=== PATIENT | female | born 1940 | race Caucasian/White ===

== ENCOUNTER 2019-03-05 11:00 | Outpatient (RCR) | payer SELFPAY | END 2019-04-04 00:01 | LOC: CR 11:00 | PROVIDERS: Family Provider Family Medicine; Referring Provider Nurse Practitioner; Visit Provider Family Medicine | DX: I50.21 Acute systolic (congestive) heart failure (principal) ==

== ENCOUNTER 2019-09-04 13:02 | Outpatient (RCR) | payer SELFPAY | END 2019-10-03 23:59 | disposition home or self-care (01) | LOC: CR 13:02 | PROVIDERS: Family Provider Family Medicine; PCP Family Medicine; Visit Provider Internal Medicine Cardiovascular Disease | DX: I50.21 Acute systolic (congestive) heart failure (principal); Z95.0 Presence of cardiac pacemaker ==

== ENCOUNTER 2019-10-17 11:41 | Outpatient (RCR) | payer SELFPAY | END 2019-11-03 23:59 | disposition home or self-care (01) | LOC: CR 11:41 | PROVIDERS: Family Provider Family Medicine; PCP Family Medicine; Visit Provider Internal Medicine Cardiovascular Disease | DX: I50.9 Heart failure, unspecified (principal); Z95.0 Presence of cardiac pacemaker ==

== ENCOUNTER 2019-12-05 14:16 | Outpatient (RCR) | payer SELFPAY | END 2020-01-03 23:59 | disposition home or self-care (01) | LOC: CR 14:16 | PROVIDERS: Family Provider Family Medicine; PCP Family Medicine; Visit Provider Internal Medicine Cardiovascular Disease | DX: I50.21 Acute systolic (congestive) heart failure (principal); Z95.0 Presence of cardiac pacemaker ==

== ENCOUNTER 2020-02-06 13:05 | Outpatient (RCR) | payer SELFPAY | END 2020-03-04 23:59 | disposition home or self-care (01) | LOC: CR 13:05 | PROVIDERS: Family Provider Family Medicine; PCP Family Medicine; Visit Provider Internal Medicine Cardiovascular Disease | DX: I50.21 Acute systolic (congestive) heart failure (principal) ==

== ENCOUNTER 2020-07-16 09:12 | Outpatient (RCR) | payer MEDICARE, OTHER, SELFPAY | END 2020-08-02 23:59 | disposition home or self-care (01) | LOC: SPT 09:12 | PROVIDERS: Family Provider Family Medicine; PCP Family Medicine; Referring Provider Family Medicine; Visit Provider Family Medicine | DX: M25.562 Pain in left knee (principal) | CPT/HCPCS: 97110; 97161 ==

== ENCOUNTER 2020-08-03 06:00 | Outpatient (RCR) | payer MEDICARE, OTHER, SELFPAY | END 2020-09-02 23:59 | disposition home or self-care (01) | LOC: SPT 06:00 | PROVIDERS: Family Provider Family Medicine; PCP Registered Nurse; Referring Provider Family Medicine; Visit Provider Family Medicine | DX: M79.671 Pain in right foot (principal); M79.672 Pain in left foot | CPT/HCPCS: 97110; L3030 ==

== ENCOUNTER 2020-11-08 06:00 | Outpatient (RCR) | payer MEDICARE, OTHER, SELFPAY | END 2020-12-03 23:59 | disposition home or self-care (01) | LOC: SPT 06:00 | PROVIDERS: PCP Registered Nurse; Referring Provider Orthopaedic Surgery; Visit Provider Orthopaedic Surgery | DX: Z47.1 Aftercare following joint replacement surgery (principal); Z96.652 Presence of left artificial knee joint | CPT/HCPCS: 97110; 97161 ==

== ENCOUNTER 2020-12-04 06:00 | Outpatient (RCR) | payer MEDICARE, OTHER, SELFPAY | END 2021-01-02 23:59 | disposition home or self-care (01) | LOC: SPT 06:00 | PROVIDERS: PCP Registered Nurse; Referring Provider Orthopaedic Surgery; Visit Provider Orthopaedic Surgery | DX: Z47.1 Aftercare following joint replacement surgery (principal); Z96.652 Presence of left artificial knee joint | CPT/HCPCS: 97110; 97150 ==

== ENCOUNTER → 2020-12-25 14:57 | Outpatient (BNVA) | payer MEDICARE, OTHER, SELFPAY | PROVIDERS: PCP Family Medicine; Visit Provider Nurse Practitioner Family | DX: I50.22 Chronic systolic (congestive) heart failure (principal); I42.0 Dilated cardiomyopathy | CPT/HCPCS: 80048; 83880; 85025 ==

== ENCOUNTER → 2020-12-27 10:20 | Outpatient (BNVA) | payer MEDICARE, OTHER, SELFPAY | PROVIDERS: PCP Family Medicine; Visit Provider Internal Medicine Cardiovascular Disease | DX: I50.22 Chronic systolic (congestive) heart failure (principal) | CPT/HCPCS: 85025 ==

== ENCOUNTER → 2021-01-13 10:09 | Outpatient (BNVA) | payer MEDICARE, OTHER, SELFPAY | PROVIDERS: PCP Family Medicine; Visit Provider Internal Medicine Cardiovascular Disease | DX: I50.22 Chronic systolic (congestive) heart failure (principal); I42.0 Dilated cardiomyopathy | CPT/HCPCS: 80048 ==

== ENCOUNTER 2021-06-25 06:00 | Outpatient (RCR) | payer MEDICARE, OTHER, SELFPAY | END 2021-07-03 23:59 | disposition home or self-care (01) | LOC: SPT 06:00 | PROVIDERS: PCP Family Medicine; Referring Provider Family Medicine; Visit Provider Family Medicine | DX: M54.9 Dorsalgia, unspecified (principal) | CPT/HCPCS: 97110; 97161 ==

== ENCOUNTER 2021-07-04 06:00 | Outpatient (RCR) | payer MEDICARE, OTHER, SELFPAY | END 2021-08-02 23:59 | disposition home or self-care (01) | LOC: SPT 06:00 | PROVIDERS: PCP Family Medicine; Referring Provider Family Medicine; Visit Provider Family Medicine | DX: M54.9 Dorsalgia, unspecified (principal) | CPT/HCPCS: 97110 ==

== ENCOUNTER → 2021-08-18 14:53 | Outpatient (BNVA) | payer MEDICARE, OTHER, SELFPAY | PROVIDERS: PCP Registered Nurse; Visit Provider Internal Medicine | DX: I11.0 Hypertensive heart disease with heart failure (principal); I50.22 Chronic systolic (congestive) heart failure; I42.0 Dilated cardiomyopathy; Z95.0 Presence of cardiac pacemaker; Z87.891 Personal history of nicotine dependence | CPT/HCPCS: 99214 ==

== ENCOUNTER 2021-12-09 13:33 | Outpatient (RCR) | payer SELFPAY | END 2022-01-02 23:59 | disposition home or self-care (01) | LOC: SPT 13:33 | PROVIDERS: PCP Registered Nurse; Referring Provider Family Medicine; Visit Provider Family Medicine | DX: I50.9 Heart failure, unspecified (principal) ==

== ENCOUNTER 2022-01-05 10:12 | Outpatient (RCR) | payer SELFPAY | END 2022-02-02 23:59 | disposition home or self-care (01) | LOC: CR 10:12 | PROVIDERS: PCP Family Medicine; Referring Provider Internal Medicine; Visit Provider Internal Medicine | DX: I50.9 Heart failure, unspecified (principal) ==

== ENCOUNTER 2022-07-06 13:35 | Outpatient (RCR) | payer SELFPAY | END 2022-08-02 23:59 | disposition home or self-care (01) | LOC: CR 13:35 | PROVIDERS: PCP Family Medicine; Referring Provider Internal Medicine; Visit Provider Internal Medicine | DX: I50.21 Acute systolic (congestive) heart failure (principal) ==

== ENCOUNTER 2022-08-03 15:41 | Outpatient (RCR) | payer SELFPAY | END 2022-09-02 23:59 | disposition home or self-care (01) | LOC: CR 15:41 | PROVIDERS: PCP Family Medicine; Referring Provider Internal Medicine; Visit Provider Internal Medicine | DX: I50.21 Acute systolic (congestive) heart failure (principal) ==

== ENCOUNTER → 2022-09-01 10:47 | Outpatient (BNVA) | payer MEDICARE, OTHER, SELFPAY | PROVIDERS: PCP Family Medicine; Visit Provider Internal Medicine Cardiovascular Disease | DX: I11.0 Hypertensive heart disease with heart failure (principal); I50.22 Chronic systolic (congestive) heart failure; I42.0 Dilated cardiomyopathy; Z95.0 Presence of cardiac pacemaker | CPT/HCPCS: 99214 ==

== ENCOUNTER 2022-10-23 11:30 | Outpatient (CLI) | payer MEDICARE, OTHER, SELFPAY ==
--- NOTE | 2022-10-23 11:53 | FL_ITS ---
WS: [id number] Exam: FL barium swallow modifd [id number] Date/Time of Exam: 10/23/2022 12:08 PM Reason For Exam: Other dysphagia Fluoroscopy time: 3min [id number] minutes # of spot films: 1 Modified barium swallow was performed in conjunction with the speech therapy service. The patient tolerated all consistencies of barium mixture foodstuffs without aspiration or penetratio n. Swallowing function at the level of oropharynx was normal. The patient ingested a barium tablet wi thout difficulty or complication. 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 FL/FL barium swallow modifd [id number] IMPRESSION: 1. Unremarkable modified barium swallow. No penetration or aspiration. 2. Moderate spasm noted involving the mid and lower esophagus.
== END 2022-10-23 11:31 | disposition home or self-care (01) ==
PROVIDERS: PCP Family Medicine; Visit Provider Family Medicine
DX: R13.10 Dysphagia, unspecified (principal)
CPT/HCPCS: 74230; 92611

== ENCOUNTER → 2022-10-26 14:13 | Outpatient (BNVA) | payer MEDICARE, OTHER, SELFPAY | PROVIDERS: PCP Family Medicine; Visit Provider Podiatrist Foot & Ankle Surgery | DX: M19.071 Primary osteoarthritis, right ankle and foot (principal); L60.3 Nail dystrophy | CPT/HCPCS: 11750; 99203 ==

== ENCOUNTER → 2022-11-12 08:42 | Outpatient (BNVA) | payer MEDICARE, OTHER, SELFPAY | PROVIDERS: PCP Family Medicine; Visit Provider Podiatrist Foot & Ankle Surgery | DX: L60.3 Nail dystrophy (principal); M19.071 Primary osteoarthritis, right ankle and foot | CPT/HCPCS: 99213 ==

== ENCOUNTER 2023-02-23 13:20 | Outpatient (RCR) | payer MEDICARE, OTHER, SELFPAY | END 2023-03-04 23:59 | disposition home or self-care (01) | LOC: SPT 13:20 | PROVIDERS: PCP Family Medicine; Visit Provider Family Medicine | DX: M54.2 Cervicalgia (principal) | CPT/HCPCS: 97110; 97161 ==

== ENCOUNTER 2023-07-01 08:59 | Outpatient (CLI) | payer MEDICARE, OTHER, SELFPAY ==
--- NOTE | 2023-07-01 09:05 | USCV_ITS ---
Axel Alphonso Age: 83 Gender: F : 1940 Exam Date: 07/01/2023 09:32 Ordering Phys: Joy Espinoza MD ([email or web address]) Technologist: YADIEL Exam Location: [facility] [place] Indication: DIALTED CARDIOMYOPATHY BP: 127 / 71 HR: 68 Rhythm: Sinus Technical Quality: Adequate MEASUREMENTS (Male / Female) Normal Values 2D ECHO LV Diastolic Diameter PLAX 4.5 cm 4.2 - 5.9 / 3.9 - 5.3 cm IVS Diastolic Thickness 1.0 cm 0.6 - 1.0 / 0.6 - 0.9 cm IVS Systolic Thickness 1.5 cm LVPW Diastolic Thickness 2.1 cm 0.6 - 1.0 / 0.6 - 0.9 cm LVPW Systolic Thickness 2.2 cm LVOT Diameter 2.0 cm LV Ejection Fraction 2D Teich 39.9 % LV Ejection Fraction MOD 2C 48.4 % LV Ejection Fraction 2C AL 53.0 % LA Diameter 3.4 cm RA Systolic Volume 4C AL 20.5 ml RA Systolic Volume 4C MOD 20.2 ml Aorta at Sinotubular Diameter 2.5 cm IVC Diameter 1.6 cm M-MODE LA Ao Ratio MM 0.7 AV Cusp Separation MM 1.5 cm DOPPLER AV Peak Velocity 104.0 cm/s LVOT Peak Velocity 71.0 cm/s AV Area Cont Eq vti 2.1 cm squared AV Area Cont Eq pk 2.1 cm squared MV Peak Velocity 83.0 cm/s MV Area PHT 3.3 cm squared Mitral E to A Ratio 0.9 TV Peak Velocity 227.0 cm/s TR Peak Velocity 250.5 cm/s TR Peak Gradient 25.1 mmHg TR Mean Velocity 192.0 cm/s TR Mean Gradient 16.6 mmHg TR Velocity Time Integral 83.2 cm TV Peak E Velocity 49.0 cm/s Right Atrial Pressure 3.0 mmHg Pulmonary Artery Systolic Pressu 28.1 mmHg PV Peak Velocity 97.0 cm/s RV Ejection Time 0.4 s FINDINGS Left Ventricle Left ventricle is normal in size. LV systolic function is mildly reduced with EF of 45 to 50%. Mild global hypokinesis. Right Ventricle Mildly hypokinetic. Pacemaker lead is seen. Right Atrium Normal in size Left Atrium Normal in size Mitral Valve Structurally normal mitral valve. Mild mitral regurgitation. Aortic Valve Structurally noraml aortic valve. No significant stenosis or regurgitation. Tricuspid Valve Mild tricuspid regurgitation. Pulmonary artery systolic pressure is normal Pulmonic Valve Not well visualized Pericardium Normal Aorta Normal in size IVC Appears to be normal CONCLUSIONS LV systolic function is mildly reduced with EF of 45-50%. Mild global hypokinesis Mildly hypokinetic right ventricle Mild mitral regurgitation Mild tricuspid regurgitation Compared to prior echocardiogram from 2017, no significant changes seen. Tawanda Campbell MD (Electronically Signed) Final Date: 05 July 2023 11:15 S
== END 2023-07-01 09:00 | disposition home or self-care (01) ==
LOC: RAD 09:00
PROVIDERS: PCP Family Medicine; Visit Provider Internal Medicine Cardiovascular Disease
DX: I42.0 Dilated cardiomyopathy (principal); I08.1 Rheumatic disorders of both mitral and tricuspid valves
CPT/HCPCS: 93306

== ENCOUNTER → 2023-07-26 09:59 | Outpatient (BNVA) | payer MEDICARE, OTHER, SELFPAY | PROVIDERS: PCP Family Medicine; Visit Provider Podiatrist Foot & Ankle Surgery | DX: M79.672 Pain in left foot (principal); M76.822 Posterior tibial tendinitis, left leg; Z46.89 Encounter for fitting and adjustment of other specified devices | CPT/HCPCS: 73630; 97760; 99213; L4361 ==

== ENCOUNTER 2023-07-26 11:00 | Outpatient (CLI) | payer MEDICARE, OTHER, SELFPAY | END 2023-07-26 11:01 | disposition home or self-care (01) | LOC: SPT 11:01 | PROVIDERS: PCP Family Medicine; Visit Provider Podiatrist Foot & Ankle Surgery | DX: Z46.89 Encounter for fitting and adjustment of other specified devices (principal); M76.822 Posterior tibial tendinitis, left leg | CPT/HCPCS: 97760; 99213; L4361 ==

== ENCOUNTER → 2023-08-11 07:05 | Outpatient (BNVA) | payer MEDICARE, OTHER, SELFPAY | PROVIDERS: PCP Registered Nurse; Visit Provider Podiatrist Foot & Ankle Surgery | DX: M76.822 Posterior tibial tendinitis, left leg (principal) | CPT/HCPCS: 99213 ==

== ENCOUNTER → 2023-12-09 10:45 | Outpatient (BNVA) | payer MEDICARE, OTHER, SELFPAY | PROVIDERS: PCP Family Medicine; Visit Provider Physician Assistant | DX: M25.569 Pain in unspecified knee (principal); M17.11 Unilateral primary osteoarthritis, right knee | CPT/HCPCS: 73560; 73565; 99213 ==

== ENCOUNTER → 2024-01-26 12:41 | Outpatient (BNVA) | payer MEDICARE, OTHER, SELFPAY | PROVIDERS: PCP Family Medicine; Visit Provider Internal Medicine Cardiovascular Disease | DX: I42.0 Dilated cardiomyopathy (principal); I50.22 Chronic systolic (congestive) heart failure; Z95.0 Presence of cardiac pacemaker | CPT/HCPCS: 99213 ==

== ENCOUNTER → 2024-03-09 09:06 | Outpatient (BNVA) | payer MEDICARE, OTHER, SELFPAY | PROVIDERS: PCP Family Medicine; Visit Provider Physician Assistant | DX: M17.11 Unilateral primary osteoarthritis, right knee (principal) | CPT/HCPCS: 99213 ==

== ENCOUNTER → 2024-06-13 10:55 | Outpatient (BNVA) | payer MEDICARE, OTHER, SELFPAY | PROVIDERS: PCP Family Medicine; Referring Provider Family Medicine; Visit Provider Specialist | DX: G30.9 Alzheimer's disease, unspecified (principal); F02.80 Dementia in other diseases classified elsewhere, unspecified severity, without behavioral disturbance, psychotic disturbance, mood disturbance, and anxiety | CPT/HCPCS: 99204 ==

== ENCOUNTER → 2024-06-23 10:26 | Outpatient (BNVA) | payer MEDICARE, OTHER, SELFPAY | PROVIDERS: PCP Family Medicine; Visit Provider Physician Assistant | DX: M17.11 Unilateral primary osteoarthritis, right knee (principal) | CPT/HCPCS: 20610; 73560; 73565; 99213; J3301; J9999 ==

== ENCOUNTER → 2024-08-23 12:05 | Outpatient (BNVA) | payer MEDICARE, OTHER, SELFPAY | PROVIDERS: PCP Family Medicine; Visit Provider Internal Medicine Cardiovascular Disease | DX: I42.0 Dilated cardiomyopathy (principal); I50.22 Chronic systolic (congestive) heart failure; M17.11 Unilateral primary osteoarthritis, right knee; E78.49 Other hyperlipidemia | CPT/HCPCS: 99214 ==

== ENCOUNTER → 2024-08-29 09:17 | Outpatient (BNVA) | payer MEDICARE, OTHER, SELFPAY | PROVIDERS: PCP Family Medicine; Visit Provider Physician Assistant | DX: M17.11 Unilateral primary osteoarthritis, right knee (principal) | CPT/HCPCS: 99214 ==

== ENCOUNTER 2024-09-05 15:23 | Inpatient (IN) | payer MEDICARE, OTHER, SELFPAY ==
[2024-09-05] VITALS (29 sets, daily range): BP systolic 92–114; BP diastolic 44–63; PULSE 73–105; RESP 14–25; TEMP 36.8–37; O2SAT 84–96; BMI 37.2; BMI 28.5; BMI 28.7
--- NOTE | 2024-09-05 15:27 | W.ED.GENADLT ---
Documented by User: Moises Chavez DO 09/06/24 08:54 HPI - General Adult General: Chief complaint: Altered Mental Status Stated complaint: weakness, AMS Time Seen by Provider: 09/05/24 15:24 History of Present Illness: 84-year-old female presents emergency room complaining of generalized weakness. Patient lives at home with her he had called EMS because she had fallen and he could not get her back up she seemed to have difficulty breathing show normally on oxygen on arrival here she was on 3 L still satting low 80s a productive 5 she satting 86 to 87% she denies chest pain or abdominal pain. She does admit to being short of breath and having a slight cough. states she has a history of COPD has a history of cardiomyopathy as well has an ICD in place. Verbal report from the was that her last ejection fraction was 40%, last echocardiogram on the chart from June 2023 was 45 to 50%. She does not have any history of coronary artery disease no previous stents.. No recent medication changes. Associated symptoms: Reports dyspnea and malaise; Deny chest pain or rash Related Data Home Medications ?Medication ?Instructions ?Recorded ?Confirmed ascorbic acid (vitamin C) 1,000 mg 500 mg PO DAILY 08/16/19 08/29/24 tablet hydrocodone 10 mg-acetaminophen 1 tab PO Q8H PRN 08/16/19 08/29/24 325 mg tablet magnesium 250 mg tablet 250 mg PO DAILY 08/16/19 08/29/24 acetaminophen 500 mg tablet 1,000 mg PO Q6H PRN Pain 08/05/21 08/29/24 (Tylenol Extra Strength) nitroglycerin 0.4 mg sublingual 0.4 mg sublingual Q5M PRN 08/18/21 08/29/24 tablet methadone 5 mg tablet 5 mg PO DAILY 08/23/24 08/29/24 Previous Rx's ?Medication ?Instructions ?Recorded silver sulfadiazine 1 % topical 1 applic topical BID 2 weeks #50 10/26/22 cream grams CAM walker #1 ea 07/26/23 diclofenac sodium 1 % topical gel 4 g topical QID #100 grams 12/09/23 (Voltaren Arthritis Pain) allopurinol 300 mg tablet 300 mg PO DAILY #90 tabs 02/15/24 carvedilol 12.5 mg tablet 12.5 mg PO BID #180 tabs 02/15/24 furosemide 40 mg tablet 40 mg PO BID #160 tabs 02/15/24 montelukast 10 mg tablet See Rx Instructions .Route 02/15/24 .COMPLEX #90 tabs potassium chloride 20 mEq See Rx Instructions .Route 02/15/24 tablet,extended release(part/cryst) .COMPLEX #90 tabs rosuvastatin 40 mg tablet (Crestor) 40 mg PO DAILY 90 days #90 tabs 02/15/24 venlafaxine 150 mg 150 mg PO DAILY #90 caps 02/15/24 capsule,extended release 24 hr (Effexor XR) fluticasone 500 mcg-salmeterol 50 See Rx Instructions .Route 02/28/24 mcg/dose blistr powdr for .COMPLEX #180 blisters inhalation (Advair Diskus) albuterol sulfate 90 mcg/actuation 1 inh inhalation QID #6.7 grams 07/17/24 aerosol inhaler (Ventolin HFA) estradiol-norethindrone acet 1 1 tab PO DAILY 90 days #90 tabs 08/17/24 mg-0.5 mg tablet pregabalin 300 mg capsule (Lyrica) 300 mg PO BID 30 days #60 caps 08/17/24 Allergies Allergy/AdvReac Type Severity Reaction Status Date / Time No Known Allergies Allergy Verified 08/23/24 13:00 Review of Systems Const: Reports: fatigue and malaise; Denies: fever(s) or chills Card: Denies: chest pain Resp: Reports: dyspnea GI: Denies: abdominal pain : Denies: dysuria, urinary frequency or urinary urgency Musc: Denies: neck pain or back pain Skin/Breast: Denies: rash PFSH ED PFSH: Medical History COPD (chronic obstructive pulmonary disease) Hormone replacement therapy Depression Hyperlipidemia Cardiomyopathy CHF (congestive heart failure) Social History Smoking and tobacco/nicotine status: former use of tobacco/nicotine Alcohol intake: current Alcohol intake frequency: 0-2 Drinks per Day Alcohol type: beer Substance/Drug Use: never Adopted: No Caregiver/support person: No Lives independently: No Household members: spouse Marital status: service: No Sexually active: Yes Do you think of yourself as: Straight/Heterosexual Current gender identity: Female Physical Exam Const: GENERAL APPEARANCE: cooperative ORIENTATION/CONSCIOUSNESS: Yes awake HENMT: COMMON NORMALS: normocephalic, atraumatic and hearing grossly normal bilaterally HEAD & SCALP: normocephalic and atraumatic Resp: COMMON NORMALS: normal respiratory effort, No retractions, No use of accessory muscles and clear to auscultation bilaterally AUSCULTATION: clear to auscultation bilaterally Cardio: COMMON NORMALS: regular rate, regular rhythm and No murmurs present (Cardio) RATE: regular rate RHYTHM: regular rhythm GI: COMMON NORMALS: Soft to palpation and No hepatosplenomegaly present AUSCULTATION: Yes normoactive bowel sounds PALPATION: Yes Soft to palpation, No Tenderness to palpation present (GI), No Guarding due to palpation present (GI) and Yes No hepatosplenomegaly present Extremity: COMMON NORMALS: normal to inspection, capillary refill normal, no clubbing, cyanosis or edema, no calf tenderness and no pedal edema Skin: COMMON NORMALS: no rashes or lesions noted GENERAL SKIN EXAM: no rashes or lesions noted Course Vital Signs: Vital signs: Vital Signs Temperature 98.1 F 09/06/24 07:41 Pulse Rate 83 09/06/24 07:41 Respiratory Rate 25 H 09/06/24 07:41 Blood Pressure 113/55 09/06/24 07:41 Pulse Oximetry 92 09/06/24 07:41 Oxygen Delivery Me thod Nasal Cannula 09/06/24 07:41 Oxygen Flow Rate 6 09/05/24 15:54 MDM - General Adult Medical Decision Making Care signed out to Dr. Harrell at change of shift. See final notes for diagnosis and disposition. Patient signed out to me by previous emergency physician pending labs. Ejection fraction from June 2023 is 45 to 50%. Last kidney function test was in 2020. But since that time, creatinine has more than doubled. She sounds somewhat crackly in the lungs at this she will be given judicious IV fluids to correct JULIET with careful consideration not to fluid overload. She is also mildly hypoxic and initially treating physician had ordered PE study of the lungs however the the hospitalist and I agreed to keep this in mind but forego CT of the chest at this time. Patient has been weak and confused and hallucinating according to her and I suspect this is due to metabolic encephalopathy. She will be admitted in guarded but relatively stable condition. Lab Data 09/06/24 01:05 09/06/24 01:05 Radiology Impressions Chest X-Ray 09/05/24 16:23 IMPRESSION: No acute findings. Laboratory Results WBC 21.43 10^3/uL (3.29-11.43) H 09/05/24 16:03 RBC 5.30 10^6/uL (3.85-5.65) 09/05/24 16:03 Hgb 16.50 g/dL (11.27-16.99) 09/05/24 16:03 Hct 51.8 % (36-47) H 09/05/24 16:03 MCV 97.7 fl (85-98) 09/05/24 16:03 MCH 31.1 pg (27-33) 09/05/24 16:03 MCHC 31.9 g/dL (30-55) 09/05/24 16:03 RDW 14.5 % (12.1-15.1) 09/05/24 16:03 Plt Count 155 10^3/cmm (157-399) L 09/05/24 16:03 MPV 11.9 fL (7.4-10.4) H 09/05/24 16:03 Neut % (Auto) 90.5 % 09/05/24 16:03 Lymph % (Auto) 2.6 % 09/05/24 16:03 Sherman % (Auto) 6.3 % 09/05/24 16:03 Eos % (Auto) 0.0 % 09/05/24 16:03 Baso % (Auto) 0.2 % 09/05/24 16:03 Neut # (Auto) 19.40 10^3/uL (1.8-7.7) H 09/05/24 16:03 Lymph # (Auto) 0.6 10^3/uL (0.8-4.8) L 09/05/24 16:03 Sherman # (Auto) 1.3 10^3/uL (0.2-0.9) H 09/05/24 16:03 Eos # (Auto) 0.0 10^3/uL (0.0-0.8) 09/05/24 16:03 Baso # (Auto) 0.1 10^3/uL (0.0-0.1) 09/05/24 16:03 Nucleated RBC % (auto) 0 % 09/05/24 16:03 Nucleated RBCs # 0.0 /100WBC 09/05/24 16:03 Specimen Type Arterial 09/05/24 15:30 Sample Site Brachial, left 09/05/24 15:30 ABG pH 7.44 (7.35-7.45) 09/05/24 15:30 ABG pCO2 39.5 mmHg (35-45) 09/05/24 15:30 ABG pO2 60.6 mmHg (80.0-100.0) L 09/05/24 15:30 ABG HCO3 26.6 mmol/L (22-26) H 09/05/24 15:30 ABG O2 Saturation 91.6 09/05/24 15:30 ABG Base Excess 2.3 mmol/L (-2.0-2.0) H 09/05/24 15:30 Zafar Test Pos 09/05/24 15:30 A-a O2 Gradient 5.1 mmHg (5-10) 09/05/24 15:30 Hematocrit 51.5 % (37-47) H 09/05/24 15:30 Hgb O2 Saturation 90.2 % (95-100) L 09/05/24 15:30 Carboxyhemoglobin 1.0 %THgb (0.4-20.1) 09/05/24 15:30 Methemoglobin 0.6 % (0.4-1.5) 09/05/24 15:30 Total Hemoglobin 16.8 g/dL (12-16) H 09/05/24 15:30 Sodium 139.0 mmol/L (131-143) 09/05/24 15:30 Potassium 3.1 mmol/L (3.5-5.0) L 09/05/24 15:30 Glucose 130.0 mg/dL (70-115) H 09/05/24 15:30 Ionized Calcium 1.1 mmol/L (1.1-1.4) 09/05/24 15:30 O2 Delivery Device Nc 09/05/24 15:30 O2 Liters/Min 5.0 % 09/05/24 15:30 Programming Engineer ID Cak 09/05/24 15:30 Sodium 136 mmol/L (136-145) 09/05/24 16:03 Potassium 3.4 mmol/L (3.5-5.1) L 09/05/24 16:03 Chloride 98 mmol/L (98-107) 09/05/24 16:03 Carbon Dioxide 22 mmol/L (22-29) 09/05/24 16:03 Anion Gap 19.4 (5-19) H 09/05/24 16:03 BUN 25 mg/dL (8-23) H 09/05/24 16:03 Creatinine 1.9 mg/dL (0.5-0.9) H 09/05/24 16:03 GFR Calculation Not Reportable 09/05/24 16:03 Glucose 105 mg/dL (65-115) 09/05/24 16:03 Calculated Osmolality 287 mOsm/kg (285-295) 09/05/24 16:03 Lactic Acid 1.6 mmol/L (0.5-2.2) 09/05/24 17:15 Calcium 8.7 mg/dL (8.5-10.5) 09/05/24 16:03 Total Bilirubin 0.7 mg/dL (0.15-1.2) 09/05/24 16:03 AST 20 U/L (0-32) 09/05/24 16:03 ALT 7 U/L (0-33) 09/05/24 16:03 Alkaline Phosphatase 59 U/L (35-105) 09/05/24 16:03 Creatine Kinase 87 U/L (26-192) 09/05/24 16:03 Troponin T Baseline 35 ng/L (0-10) H 09/05/24 16:03 Troponin T 120 Minute 33.93 ng/L (0-10) H 09/05/24 18:18 Delta Troponin T -1.07 ABS# (0-10) L 09/05/24 18:18 Total Protein 6.3 g/dL (6.6-8.7) L 09/05/24 16:03 Albumin 3.7 g/dL (3.5-5.2) 09/05/24 16:03 Globulin 2.6 g/dL (1.3-4.6) 09/05/24 16:03 Lipase 11 U/L (13-60) L 09/05/24 16:03 Urine Color Yellow (Yellow) 09/05/24 17:31 Urine Appearance Clear (CLEAR) 09/05/24 17:31 Urine pH 7.5 (5-7) 09/05/24 17:31 Ur Specific [place] 1.009 (1.005-1.030) 09/05/24 17:31 Urine Protein 2+ (Negative) A 09/05/24 17:31 Urine Glucose (UA) Negative (Normal) 09/05/24 17:31 Urine Ketones Negative (Negative) 09/05/24 17:31 Urine Blood 1+ (Negative) A 09/05/24 17:31 Urine Nitrate Negative (Negative) 09/05/24 17:31 Urine Bilirubin Negative (Negative) 09/05/24 17:31 Urine Urobilinogen 1.0 mg/dL (Negative) 09/05/24 17:31 Ur Leukocyte Esterase Negative (Negative) 09/05/24 17:31 Urine RBC 0-2 /hpf (0-2) 09/05/24 17:31 Urine WBC 0-5 /hpf (0-5) 09/05/24 17:31 Ur Squamous Epith Cells 0-5 /hpf (0-5) 09/05/24 17:31 Amorphous Sediment Not Reportable 09/05/24 17:31 Urine Bacteria None seen /hpf (NONE) 09/05/24 17:31 Hyaline Casts 14.06 /lpf 09/05/24 17:31 EKG Data EKG 1: Interpretation: September 05, 2024 1619 EKG shows a paced rhythm with a rate of 86 no further interpretation available Computer generated interpretation: Chest X-Ray 09/05/24 16:23 IMPRESSION: No acute findings. EKG 2: Computer generated interpretation: Chest X-Ray 09/05/24 16:23 IMPRESSION: No acute findings. Discharge Plan Discharge Patient Disposition: Admitted As Inpatient Admit Provider: Radha Thomas Clinical Impression: Acute metabolic encephalopathy, JULIET (acute kidney injury), Hypoxia Condition: Stable Sign Out Sign Out Data: Patient Sign Out occurred on 09/05/24 at 19:28. Patient's care was discussed, and care was transferred from Moises Chavez DO to Steven Harrell MD. Coding Level of Care Code ED Drainman for Chg Fwd Documented by User: Steven Harrell MD 09/05/24 20:16 HPI - General Adult General: Chief complaint: Altered Mental Status Stated complaint: weakness, AMS Time Seen by Provider: 09/05/24 15:24 Related Data Home Medications ?Medication ?Instructions ?Recorded ?Confirmed ascorbic acid (vitamin C) 1,000 mg 500 mg PO DAILY 08/16/19 08/29/24 tablet hydrocodone 10 mg-acetaminophen 1 tab PO Q8H PRN 08/16/19 08/29/24 325 mg tablet magnesium 250 mg tablet 250 mg PO DAILY 08/16/19 08/29/24 acetaminophen 500 mg tablet 1,000 mg PO Q6H PRN Pain 08/05/21 08/29/24 (Tylenol Extra Strength) nitroglycerin 0.4 mg sublingual 0.4 mg sublingual Q5M PRN 08/18/21 08/29/24 tablet methadone 5 mg tablet 5 mg PO DAILY 08/23/24 08/29/24 Previous Rx's ?Medication ?Instructions ?Recorded silver sulfadiazine 1 % topical 1 applic topical BID 2 weeks #50 10/26/22 cream grams CAM walker #1 ea 07/26/23 diclofenac sodium 1 % topical gel 4 g topical QID #100 grams 12/09/23 (Voltaren Arthritis Pain) allopurinol 300 mg tablet 300 mg PO DAILY #90 tabs 02/15/24 carvedilol 12.5 mg tablet 12.5 mg PO BID #180 tabs 02/15/24 furosemide 40 mg tablet 40 mg PO BID #160 tabs 02/15/24 montelukast 10 mg tablet See Rx Instructions .Route 02/15/24 .COMPLEX #90 tabs potassium chloride 20 mEq See Rx Instructions .Route 02/15/24 tablet,extended release(part/cryst) .COMPLEX #90 tabs rosuvastatin 40 mg tablet (Crestor) 40 mg PO DAILY 90 days #90 tabs 02/15/24 venlafaxine 150 mg 150 mg PO DAILY #90 caps 02/15/24 capsule,extended release 24 hr (Effexor XR) fluticasone 500 mcg-salmeterol 50 See Rx Instructions .Route 02/28/24 mcg/dose blistr powdr for .COMPLEX #180 blisters inhalation (Advair Diskus) albuterol sulfate 90 mcg/actuation 1 inh inhalation QID #6.7 grams 07/17/24 aerosol inhaler (Ventolin HFA) estradiol-norethindrone acet 1 1 tab PO DAILY 90 days #90 tabs 08/17/24 mg-0.5 mg tablet pregabalin 300 mg capsule (Lyrica) 300 mg PO BID 30 days #60 caps 08/17/24 Allergies Allergy/AdvReac Type Severity Reaction Status Date / Time No Known Allergies Allergy Verified 08/23/24 13:00 [facility] ED PFSH: Medical History COPD (chronic obstructive pulmonary disease) Hormone replacement therapy Depression Hyperlipidemia Cardiomyopathy CHF (congestive heart failure) Social History Smoking and tobacco/nicotine status: former use of tobacco/nicotine Alcohol intake: current Alcohol intake frequency: 0-2 Drinks per Day Alcohol type: beer Substance/Drug Use: never Adopted: No Caregiver/support person: No Lives independently: No Household members: spouse Marital status: service: No Sexually active: Yes Do you think of yourself as: Straight/Heterosexual Current gender identity: Female Course Vital Signs: Vital signs: Vital Signs Temperature 98.1 F 09/06/24 07:41 Pulse Rate 83 09/06/24 07:41 Respiratory Rate 25 H 09/06/24 07:41 Blood Pressure 113/55 09/06/24 07:41 Pulse Oximetry 92 09/06/24 07:41 Oxygen Delivery Me thod Nasal Cannula 09/06/24 07:41 Oxygen Flow Rate 6 09/05/24 15:54 MDM - General Adult Medical Decision Making Patient signed out to me by previous emergency physician pending labs. Ejection fraction from June 2023 is 45 to 50%. Last kidney function test was in 2020. But since that time, creatinine has more than doubled. She sounds somewhat crackly in the lungs at this she will be given judicious IV fluids to correct JULIET with careful consideration not to fluid overload. She is also mildly hypoxic and initially treating physician had ordered PE study of the lungs however the the hospitalist and I agreed to keep this in mind but forego CT of the chest at this time. Patient has been weak and confused and hallucinating according to her and I suspect this is due to metabolic encephalopathy. She will be admitted in guarded but relatively stable condition. Lab Data 09/06/24 01:05 09/06/24 01:05 Radiology Impressions Chest X-Ray 09/05/24 16:23 IMPRESSION: No acute findings. Laboratory Results WBC 21.43 10^3/uL (3.29-11.43) H 09/05/24 16:03 RBC 5.30 10^6/uL (3.85-5.65) 09/05/24 16:03 Hgb 16.50 g/dL (11.27-16.99) 09/05/24 16:03 Hct 51.8 % (36-47) H 09/05/24 16:03 MCV 97.7 fl (85-98) 09/05/24 16:03 MCH 31.1 pg (27-33) 09/05/24 16:03 MCHC 31.9 g/dL (30-55) 09/05/24 16:03 RDW 14.5 % (12.1-15.1) 09/05/24 16:03 Plt Count 155 10^3/cmm (157-399) L 09/05/24 16:03 MPV 11.9 fL (7.4-10.4) H 09/05/24 16:03 Neut % (Auto) 90.5 % 09/05/24 16:03 Lymph % (Auto) 2.6 % 09/05/24 16:03 Sherman % (Auto) 6.3 % 09/05/24 16:03 Eos % (Auto) 0.0 % 09/05/24 16:03 Baso % (Auto) 0.2 % 09/05/24 16:03 Neut # (Auto) 19.40 10^3/uL (1.8-7.7) H 09/05/24 16:03 Lymph # (Auto) 0.6 10^3/uL (0.8-4.8) L 09/05/24 16:03 Sherman # (Auto) 1.3 10^3/uL (0.2-0.9) H 09/05/24 16:03 Eos # (Auto) 0.0 10^3/uL (0.0-0.8) 09/05/24 16:03 Baso # (Auto) 0.1 10^3/uL (0.0-0.1) 09/05/24 16:03 Nucleated RBC % (auto) 0 % 09/05/24 16:03 Nucleated RBCs # 0.0 /100WBC 09/05/24 16:03 Specimen Type Arterial 09/05/24 15:30 Sample Site Brachial, left 09/05/24 15:30 ABG pH 7.44 (7.35-7.45) 09/05/24 15:30 ABG pCO2 39.5 mmHg (35-45) 09/05/24 15:30 ABG pO2 60.6 mmHg (80.0-100.0) L 09/05/24 15:30 ABG HCO3 26.6 mmol/L (22-26) H 09/05/24 15:30 ABG O2 Saturation 91.6 09/05/24 15:30 ABG Base Excess 2.3 mmol/L (-2.0-2.0) H 09/05/24 15:30 Zafar Test Pos 09/05/24 15:30 A-a O2 Gradient 5.1 mmHg (5-10) 09/05/24 15:30 Hematocrit 51.5 % (37-47) H 09/05/24 15:30 Hgb O2 Saturation 90.2 % (95-100) L 09/05/24 15:30 Carboxyhemoglobin 1.0 %THgb (0.4-20.1) 09/05/24 15:30 Methemoglobin 0.6 % (0.4-1.5) 09/05/24 15:30 Total Hemoglobin 16.8 g/dL (12-16) H 09/05/24 15:30 Sodium 139.0 mmol/L (131-143) 09/05/24 15:30 Potassium 3.1 mmol/L (3.5-5.0) L 09/05/24 15:30 Glucose 130.0 mg/dL (70-115) H 09/05/24 15:30 Ionized Calcium 1.1 mmol/L (1.1-1.4) 09/05/24 15:30 O2 Delivery Device Nc 09/05/24 15:30 O2 Liters/Min 5.0 % 09/05/24 15:30 Programming Engineer ID Cak 09/05/24 15:30 Sodium 136 mmol/L (136-145) 09/05/24 16:03 Potassium 3.4 mmol/L (3.5-5.1) L 09/05/24 16:03 Chloride 98 mmol/L (98-107) 09/05/24 16:03 Carbon Dioxide 22 mmol/L (22-29) 09/05/24 16:03 Anion Gap 19.4 (5-19) H 09/05/24 16:03 BUN 25 mg/dL (8-23) H 09/05/24 16:03 Creatinine 1.9 mg/dL (0.5-0.9) H 09/05/24 16:03 GFR Calculation Not Reportable 09/05/24 16:03 Glucose 105 mg/dL (65-115) 09/05/24 16:03 Calculated Osmolality 287 mOsm/kg (285-295) 09/05/24 16:03 Lactic Acid 1.6 mmol/L (0.5-2.2) 09/05/24 17:15 Calcium 8.7 mg/dL (8.5-10.5) 09/05/24 16:03 Total Bilirubin 0.7 mg/dL (0.15-1.2) 09/05/24 16:03 AST 20 U/L (0-32) 09/05/24 16:03 ALT 7 U/L (0-33) 09/05/24 16:03 Alkaline Phosphatase 59 U/L (35-105) 09/05/24 16:03 Creatine Kinase 87 U/L (26-192) 09/05/24 16:03 Troponin T Baseline 35 ng/L (0-10) H 09/05/24 16:03 Troponin T 120 Minute 33.93 ng/L (0-10) H 09/05/24 18:18 Delta Troponin T -1.07 ABS# (0-10) L 09/05/24 18:18 Total Protein 6.3 g/dL (6.6-8.7) L 09/05/24 16:03 Albumin 3.7 g/dL (3.5-5.2) 09/05/24 16:03 Globulin 2.6 g/dL (1.3-4.6) 09/05/24 16:03 Lipase 11 U/L (13-60) L 09/05/24 16:03 Urine Color Yellow (Yellow) 09/05/24 17:31 Urine Appearance Clear (CLEAR) 09/05/24 17:31 Urine pH 7.5 (5-7) 09/05/24 17:31 Ur Specific [place] 1.009 (1.005-1.030) 09/05/24 17:31 Urine Protein 2+ (Negative) A 09/05/24 17:31 Urine Glucose (UA) Negative (Normal) 09/05/24 17:31 Urine Ketones Negative (Negative) 09/05/24 17: Urine Blood 1+ (Negative) A 09/05/24 17:31 Urine Nitrate Negative (Negative) 09/05/24 17:31 Urine Bilirubin Negative (Negative) 09/05/24 17:31 Urine Urobilinogen 1.0 mg/dL (Negative) 09/05/24 17:31 Ur Leukocyte Esterase Negative (Negative) 09/05/24 17:31 Urine RBC 0-2 /hpf (0-2) 09/05/24 17:31 Urine WBC 0-5 /hpf (0-5) 09/05/24 17:31 Ur Squamous Epith Cells 0-5 /hpf (0-5) 09/05/24 17:31 Amorphous Sediment Not Reportable 09/05/24 17:31 Urine Bacteria None seen /hpf (NONE) 09/05/24 17:31 Hyaline Casts 14.06 /lpf 09/05/24 17:31 All radiology interpretation(s) finalized by discharge EKG Data EKG 1: Computer generated interpretation: Chest X-Ray 09/05/24 16:23 IMPRESSION: No acute findings. EKG 2: Interpretation: Time?1910?ventricularly paced rhythm, negative Sgarbossa criteria, rate of 77, QTc = 436. Computer generated interpretation: Chest X-Ray 09/05/24 16:23 IMPRESSION: No acute findings. Discharge Plan Discharge Patient Disposition: Admitted As Inpatient Admit Provider: Radha Thomas Clinical Impression: Acute metabolic encephalopathy, JULIET (acute kidney injury), Hypoxia Condition: Stable Sign Out Sign Out Data: Patient Sign Out occurred on 09/05/24 at 19:28. Patient's care was discussed, and care was transferred from Moises Chavez DO to Steven Harrell MD. Coding Level of Care Code ED Drainman for Traci Jenkins
[2024-09-05 15:41] LABS: ABG PCO2 39.5 mmHg (35-45); ABG PH Result 7.44 (7.35-7.45); Alveolar-Arterial Oxygen Gradi 5.1 mmHg (5-10); Arterial Blood Gas Hematocrit 51.5 % (37-47); Base Excess ABG 2.3 mmol/L (-2.0-2.0); Blood Gas Allen Test Pos; Blood Gas Operator Identificat CAK; Blood Gas Sample Site Brachial, left; Blood Gas Sample Type Arterial; HCO3 ABG 26.6 mmol/L (22-26); HGB O2 Sat 90.2 % (95-100); Ionized Calcium Level - ABG 1.1 mmol/L (1.1-1.4); Methemoglobin 0.6 % (0.4-1.5); Oxygen Device NC; Oxygen Saturation ABG 91.6; PO2 ABG 60.6 mmHg (80.0-100.0); Potassium Level - ABG 3.1 mmol/L (3.5-5.0); Total Hemoglobin 16.8 g/dL (12-16)
[2024-09-05] MEDS: ipratropium-albuterol 3 mL Neb INHALATION (15:50)
--- NOTE | 2024-09-05 16:19 | ECG_ITS ---
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
--- NOTE | 2024-09-05 16:23 | XRR_ITS ---
PROCEDURE INFORMATION: Exam: XR Chest Exam date and time: 09/05/2024 4:29 PM Age: 84 years old Clinical indication: Dyspnea; Prior surgery; Surgery date: 6+ months; Surgery type: Defib; Additional info: Dyspnea/cough TECHNIQUE: Imaging protocol: Radiologic exam of the chest. Views: 1 view. COMPARISON: CR XR chest 2V* [id number] 10/04/2020 10:10 AM FINDINGS: Tubes, catheters and devices: AICD/pacer device noted in the left chest wall. Lungs: Unremarkable. No consolidation. Pleural spaces: Unremarkable. No pleural effusion. No pneumothorax. Heart/Mediastinum: Unremarkable. No cardiomegaly. Bones/joints: ACDF hardware noted in the cervical spine. Visualized osseous structures are intact. XR/XR chest 1V portable [id number] IMPRESSION: No acute findings.
[2024-09-05] MEDS: dexamethasone 10 mg/mL INJ IM (16:33)
[2024-09-05] MEDS: aspirin 81 mg Chew Tablet 324 MG PO (16:33)
[2024-09-05] MEDS: sodium chloride 0.9% 1,000 ML 999 ML IV (16:34)
[2024-09-05 16:41] LABS: Basophils # 0.1 10^3/uL (0.0-0.1); Basophils % 0.2 %; Hematocrit 51.8 % (36-47); Lymphocytes # 0.6 10^3/uL (0.8-4.8); Lymphocytes % 2.6 %; Mean Corpuscular HGB Conc 31.9 g/dL (30-55); Mean Corpuscular Hemoglobin 31.1 pg (27-33); Mean Corpuscular Volume 97.7 fl (85-98); Mean Platelet Volume 11.9 fL (7.4-10.4); Monocytes # 1.3 10^3/uL (0.2-0.9); Monocytes % 6.3 %; Neutrophils % 90.5 %; Nucleated Red Blood Cells % 0 %; Platelet Count 155 10^3/cmm (157-399); Red Cell Distribution Width 14.5 % (12.1-15.1); White Blood Count 21.43 10^3/uL (3.29-11.43)
[2024-09-05 17:08] LABS: Troponin(5th) Baseline 35 ng/L (0-10)
[2024-09-05 17:56] LABS: Bilirubin Urine Negative (Negative); Blood Urine 1+ (Negative); Glucose Urine UA Negative (Normal); Ketones Urine Negative (Negative); Leukocyte Esterase Urine Negative (Negative); Nitrate Urine Negative (Negative); Protein Urine 2+ (Negative); Specific Gravity, Urine 1.009 (1.005-1.030); Urine Appearance Clear (CLEAR); Urine Color Yellow (Yellow); pH Urine 7.5 (5-7)
[2024-09-05 18:03] LABS: Add Urine Microscopic? YES; Bacteria Urine None Seen /hpf; Hyaline Casts Urine 14.06 /lpf; RBC Urine 0-2 /hpf (0-2); Squamous Epithelial Cell Urine 0-5 /hpf (0-5); WBC Urine 0-5 /hpf (0-5)
[2024-09-05 18:31] LABS: Alanine Aminotransferase 7 U/L (0-33); Albumin Level 3.7 g/dL (3.5-5.2); Alkaline Phosphatase 59 U/L (35-105); Anion Gap 19.4 (5-19); Aspartate Amino Transferase 20 U/L (0-32); Blood Urea Nitrogen 25 mg/dL (8-23); Calcium 8.7 mg/dL (8.5-10.5); Carbon Dioxide 22 mmol/L (22-29); Chloride 98 mmol/L (98-107); Creatine Phosphokinase 87 U/L (26-192); Creatinine Clr Calc Pharmacy 25.0614; Globulin 2.6 g/dL (1.3-4.6); Glucose 105 mg/dL (65-115); Lipase 11 U/L (13-60); Osmolality Calculated 287 mOsm/kg (285-295); Potassium 3.4 mmol/L (3.5-5.1); Sodium 136 mmol/L (136-145); Total Bilirubin 0.7 mg/dL (0.15-1.2); Total Protein 6.3 g/dL (6.6-8.7)
[2024-09-05 18:34] LABS: Lactic Sepsis W/Reflex 1.6 mmol/L (0.5-2.2)
[2024-09-05 18:55] LABS: Troponin 5 2HR 33.93 ng/L (0-10)
[2024-09-05 19:01] LABS: Troponin 5 2HR Delta -1.07 ABS# (0-10)
[2024-09-05] MEDS: piperacillin-tazobactam 3.375 GM in sodium chloride 0.9% (plus) 50 ML IV (19:02)
--- NOTE | 2024-09-05 19:11 | ECG_ITS ---
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
--- NOTE | 2024-09-05 21:49 | ECG_ITS ---
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
[2024-09-06] VITALS (13 sets, daily range): BP systolic 106–131; BP diastolic 52–75; PULSE 77–106; RESP 22–27; TEMP 36.4–36.8; O2SAT 92–96
[2024-09-06 00:04] LABS: Troponin 5 6HR 32.02 ng/L (0-10)
[2024-09-06 00:08] LABS: Troponin 5 6HR Delta -2.98 ng/L (0-12)
--- NOTE | 2024-09-06 00:21 | PM.HP ---
Providers/Chief Complaint Admitting Physician: Radha Thomas MD--- this patient was seen before 12 midnight Primary Care Provider: Jesus Fuentes MD Chief Complaint: weakness, AMS History of Present Illness Alphonso Reyna is a 84 year old female with medical history significant for cardiomyopathy, JULIET. Patient presents to the emergency room with a history of confusion x 1 month at home. In the recent past year patient creatinine had been normal at is 0.86 patient had had a creatinine rising from a 1.6 now today on presentation it was 1.9. Patient white count was elevated at 21,000 chest x-ray read as normal with no pneumonia by official report figueroa anywhere on can say this is a source for much white count elevation empiric antibiotics given with Zosyn to cover for possible infection. Patient indeed does have metabolic encephalopathy we also know that PE cannot be ruled out. Patient is in renal failure at the moment once the creatinine improve it would be okay to have the scan of the lung. While we wait for creatinine to improve empiric anticoagulant Review of Systems Narrative: Generally patient is stable and very pleasant system review with unremarkable except for metabolic encephalopathy and elevated troponin likely due to renal failure patient does not have any chest pain does not have any complaint except that family noted patient confusion. Follow closely with patient hypoxemia and optimize accordingly patient is on supplemental oxygen 2 L Medications/Allergies Home Medications ?Medication ?Instructions ?Recorded ?Confirmed ?Last Taken ?Type ascorbic acid (vitamin C) 1,000 mg 500 mg PO DAILY 08/16/19 08/29/24 Unknown History tablet hydrocodone 10 mg-acetaminophen 1 tab PO Q8H PRN 08/16/19 08/29/24 Unknown History 325 mg tablet magnesium 250 mg tablet 250 mg PO DAILY 08/16/19 08/29/24 Unknown History acetaminophen 500 mg tablet 1,000 mg PO Q6H PRN Pain 08/05/21 08/29/24 Unknown History (Tylenol Extra Strength) nitroglycerin 0.4 mg sublingual 0.4 mg sublingual Q5M PRN 08/18/21 08/29/24 Unknown History tablet silver sulfadiazine 1 % topical 1 applic topical BID 2 weeks #50 10/26/22 08/08/24 Unknown Rx cream grams CAM walker #1 ea 07/26/23 08/29/24 Unknown Rx diclofenac sodium 1 % topical gel 4 g topical QID #100 grams 12/09/23 08/29/24 Unknown Rx (Voltaren Arthritis Pain) allopurinol 300 mg tablet 300 mg PO DAILY #90 tabs 02/15/24 08/29/24 Unknown Rx carvedilol 12.5 mg tablet 12.5 mg PO BID #180 tabs 02/15/24 08/29/24 Unknown Rx furosemide 40 mg tablet 40 mg PO BID #160 tabs 02/15/24 08/29/24 Unknown Rx montelukast 10 mg tablet See Rx Instructions .Route 02/15/24 08/29/24 Unknown Rx .COMPLEX #90 tabs potassium chloride 20 mEq See Rx Instructions .Route 02/15/24 08/29/24 Unknown Rx tablet,extended release(part/cryst) .COMPLEX #90 tabs rosuvastatin 40 mg tablet (Crestor) 40 mg PO DAILY 90 days #90 tabs 02/15/24 08/29/24 Unknown Rx venlafaxine 150 mg 150 mg PO DAILY #90 caps 02/15/24 08/29/24 Unknown Rx capsule,extended release 24 hr (Effexor XR) fluticasone 500 mcg-salmeterol 50 See Rx Instructions .Route 02/28/24 08/29/24 Unknown Rx mcg/dose blistr powdr for .COMPLEX #180 blisters inhalation (Advair Diskus) albuterol sulfate 90 mcg/actuation 1 inh inhalation QID #6.7 grams 07/17/24 08/29/24 Unknown Rx aerosol inhaler (Ventolin HFA) estradiol-norethindrone acet 1 1 tab PO DAILY 90 days #90 tabs 08/17/24 08/29/24 Unknown Rx mg-0.5 mg tablet pregabalin 300 mg capsule (Lyrica) 300 mg PO BID 30 days #60 caps 08/17/24 08/29/24 Unknown Rx methadone 5 mg tablet 5 mg PO DAILY 08/23/24 08/29/24 Unknown History Allergies Allergy/AdvReac Type Severity Reaction Status Date / Time No Known Allergies Allergy Verified 08/23/24 13:00 PFSH Acute PFSH: Medical History COPD (chronic obstructive pulmonary disease) Hormone replacement therapy Depression Hyperlipidemia Cardiomyopathy CHF (congestive heart failure) Social History Smoking and tobacco/nicotine status: former use of tobacco/nicotine Alcohol intake: current Alcohol intake frequency: 0-2 Drinks per Day Alcohol type: beer Substance/Drug Use: never Adopted: No Caregiver/support person: No Lives independently: No Household members: spouse Marital status: service: No Sexually active: Yes Do you think of yourself as: Straight/Heterosexual Current gender identity: Female Vitals/I&O/Wt Last Vital Signs Temp 98.6 F 09/05/24 21:19 Pulse 77 09/06/24 00:17 Resp 26 H 09/06/24 00:17 BP 106/52 09/06/24 00:17 Pulse Ox 96 09/05/24 21:23 O2 Del Method Nasal Cannula 09/05/24 21:19 O2 Flow Rate 6 09/05/24 15:54 09/05/24 09/05/24 09/06/24 14:59 22:59 06:59 Intake Total 1100 / 1100 1572 / 2672 Output Total 0 / 0 Balance 1100 / 1100 1572 / 2672 Weight last 48 hrs Weight 82.645 kg Weight 83.149 kg Weight 95.254 kg Data 09/06/24 01:05 09/06/24 01:05 Micro: Microbiology 09/05/24 17:15 Blood Culture - Preliminary Blood SPECIMEN COLLECTED 09/05/24 17:22 Blood Culture - Preliminary Blood SPECIMEN COLLECTED A&P Assessment and plan (1) Hypoxia: Likely multifactorial apparently per official report patient does not have pneumonia - Continue to monitor closely empiric anticoagulant till patient renal failure resolves for a scan if need be to rule out PE. (2) JULIET (acute kidney injury): Patient is with worsening JULIET than prior - Continue to treat and keep medication renal friendly (3) Elevated troponin: Troponin elevation with no chest pain nothing much going on with this patient except for metabolic encephalopathy, no chest pains it is most likely due to renal failure lack of good elimination of troponin. (4) Acute metabolic encephalopathy: Metabolic encephalopathy due to renal failure must continue to treat and optimize (5) Alzheimer disease: (6) Leukocytosis (leucocytosis): (7) Dehydration: PDMP PDMP Reviewed: Last Reviewed 09/06/24 00:22 by Radha Thomas MD Attestations Medical Necessity Statement*: Patient with worsening renal failure and with an obvious metabolic encephalopathy with confusion desire for inpatient care with consultation of nephrology to follow-up with the patient. Telemetry nephrology has been called and yet to call back please follow-up on this concerning nephrology follow-up. Patient deserves a minimum of 2 midnights for care Coding Level of Care Code 28888 Diagnoses Hypoxia R09.02 JULIET (acute kidney injury) N17.9 Elevated troponin R79.89 Acute metabolic encephalopathy G93.41 Alzheimer disease G30.9; F02.80 Leukocytosis (leucocytosis) D72.829 Dehydration E86.0 Time Spent (min) 70
[2024-09-06] MEDS: sodium chloride 0.9% 1,000 ML 100 ML IV (00:35)
[2024-09-06 01:23] LABS: Basophils # 0.1 10^3/uL (0.0-0.1); Basophils % 0.3 %; Eosinophils # 0.4 10^3/uL (0.0-0.8); Eosinophils % 1.9 %; Hematocrit 48.4 % (36-47); Lymphocytes # 0.8 10^3/uL (0.8-4.8); Lymphocytes % 3.6 %; Mean Corpuscular HGB Conc 30.6 g/dL (30-55); Mean Corpuscular Hemoglobin 30.6 pg (27-33); Mean Corpuscular Volume 100.2 fl (85-98); Mean Platelet Volume 12.3 fL (7.4-10.4); Monocytes # 1.2 10^3/uL (0.2-0.9); Monocytes % 5.6 %; Neutrophils # 19.08 10^3/uL (1.8-7.7); Nucleated Red Blood Cells % 0 %; Platelet Count 137 10^3/cmm (157-399); Red Blood Count 4.83 10^6/uL (3.85-5.65); Red Cell Distribution Width 14.6 % (12.1-15.1); White Blood Count 21.66 10^3/uL (3.29-11.43)
[2024-09-06 01:40] LABS: Magnesium 2.4 mg/dL (1.7-2.3)
[2024-09-06 01:42] LABS: Alanine Aminotransferase 6 U/L (0-33); Albumin Level 2.9 g/dL (3.5-5.2); Alkaline Phosphatase 39 U/L (35-105); Anion Gap 18.3 (5-19); Aspartate Amino Transferase 19 U/L (0-32); Blood Urea Nitrogen 28 mg/dL (8-23); Calcium 8.2 mg/dL (8.5-10.5); Carbon Dioxide 21 mmol/L (22-29); Chloride 103 mmol/L (98-107); Creatinine Clr Calc Pharmacy 20.0337; Globulin 3.1 g/dL (1.3-4.6); Glucose 101 mg/dL (65-115); Osmolality Calculated 294 mOsm/kg (285-295); Potassium 3.3 mmol/L (3.5-5.1); Sodium 139 mmol/L (136-145); Total Bilirubin 0.8 mg/dL (0.15-1.2)
[2024-09-06 02:03] LABS: Slide Review Slide Review Perform
[2024-09-06 02:09] LABS: Lactic Sepsis W/Reflex 1.6 mmol/L (0.5-2.2)
[2024-09-06] MEDS: piperacillin-tazobactam 2.25 GM in sodium chloride 0.9% (plus) 50 ML IV (03:11)
--- NOTE | 2024-09-06 07:41 | PC.NURSE ---
shift change checked on pt, she remove her telemetry and pulse oximetry. applied back on her after informing her. she is alert to person, time and she knows she is in the hospital and what happened to her. she looked short of breath on 5 L nasal cannula. coarse crackles and wheezing heard upon auscultation. bed alarm reset.
[2024-09-06] MEDS: heparin 5,000 unit/mL INJ 1 mL 5000 UNIT SUBCUT ×2 (08:36→21:03)
--- NOTE | 2024-09-06 09:37 | PC.PHAR ---
Addendum entered by Paris Lobato 09/06/24 10:59: Spouse never got back to us on pts' current med list. [facility] went over current med list with us and faxed a copy. A couple meds are overdue for filling but I added pharmacy notes with last fill dates and day supply. Original Note: Pt unable to verify home medications. Left message for Spouse to call back. Phoned [facility] for current med list-faxing 09/06/24 9:35am
--- NOTE | 2024-09-06 10:04 | PC.CHAP ---
Pastoral Care Encounter/Spiritual Assessment Type of Contact [] Declined sock drier visit [] Patient/Family/Request visit [] Outpatient visit [] Follow-up visit [] Physician referral [] Code/Alert [x] Routine visit [] Staff referral [] Actively dying [] Patient sleeping [x] Family support [] [] Out of room [] Palliative care [] [] Receiving care in room [] Pre-surgical visit [] Trauma [] Long length of stay [] ICU visit [] Other: Relational/Emotional Strength [x] Patient feels connected with others/family/visitors/staff [] Distress [] Loneliness/isolation [] Abandonment Spirituality of Patient [x] Person of Meagan [] Attends Jewish of their Meagan [x] Believes in Prayer [] Reads Bible or Gnosticist materials [] There are Spiritual issues to be addressed Seat Scooper Machine Interventions [x] Prayer [x] Active listening [x] Non-anxious presence [x] Spiritual/emotional support [] Crisis/trauma care [] Spiritual counseling [] Bereavement support [] Provided bereavement packet [] Provided Bible/devotional materials [] Provided toy/stuffed animal, coloring book to patient or family member [] Provided Communion [] Anointing/[place] [] Salvation [x] Completed spiritual assessment [] Other: Impact on Illness or Injury [] Angry [] Fearful [] Anxious [] Often cries [] Exhaustion [] Unable to work [] Unable to attend mandaen [] Unable to walk/stand [] Unable to read [] Unable to drive [] Unable to eat/drink [] Unable to sleep [] Unable to be with family [] Patient intubated [] Other: Summary Time spent with patient 5 min
--- NOTE | 2024-09-06 11:57 | USCV_ITS ---
Alphonso Reyna Age: 84 Gender: F : 1940 Exam Date: 09/06/2024 13:19 Ordering Phys: Otilia Carter MD Technologist: MAURICE [place] [facility] [place] CP BP: 125 / 75 HR: 96 Rhythm: Sinus Technical Quality: Adequate MEASUREMENTS (Male / Female) Normal Values 2D ECHO LV Diastolic Diameter PLAX 4.7 cm 4.2 - 5.9 / 3.9 - 5.3 cm IVS Diastolic Thickness 0.7 cm 0.6 - 1.0 / 0.6 - 0.9 cm IVS Systolic Thickness 1.3 cm LVPW Diastolic Thickness 1.4 cm 0.6 - 1.0 / 0.6 - 0.9 cm LVPW Systolic Thickness 1.3 cm LVOT Diameter 2.0 cm LV Ejection Fraction 2D Teich 51.9 % LV Ejection Fraction MOD 4C 45.8 % LV Ejection Fraction MOD 2C 53.1 % LV Ejection Fraction 2C AL 54.8 % LA Diameter 3.2 cm RA Systolic Volume 4C AL 61.8 ml RA Systolic Volume 4C MOD 59.5 ml Aorta at Sinotubular Diameter 2.6 cm M-MODE LA Ao Ratio MM 1.0 AV Cusp Separation MM 1.3 cm DOPPLER AV Peak Velocity 99.0 cm/s LVOT Peak Velocity 73.0 cm/s AV Area Cont Eq vti 2.6 cm squared AV Area Cont Eq pk 2.4 cm squared MV Peak Velocity 85.0 cm/s MV Area PHT 6.1 cm squared Mitral E to A Ratio 0.7 TV Peak E Velocity 72.0 cm/s PV Peak Velocity 98.0 cm/s FINDINGS Left Ventricle Normal left ventricular size, systolic function and wall thickness, with no regional wall motion abnormalities. Left ventricular ejection fraction is estimated at 55 %. Grade I/IV diastolic dysfunction (abnormal relaxation filling pattern), normal to mildly elevated filling pressures. Right Ventricle Normal right ventricular size. Normal right ventricular systolic function. Catheter/pacemaker wire visualized in the right ventricle. Right Atrium The right atrium is normal in size. Left Atrium The left atrium is normal in size. Mitral Valve Mildly thickened mitral valve. Mild mitral annular calcification. No mitral valve stenosis. Mild mitral valve regurgitation. Aortic Valve Structurally normal aortic valve without significant sclerosis or stenosis. There is no aortic regurgitation. Tricuspid Valve Structurally normal tricuspid valve without significant stenosis or regurgitation. Pulmonary artery systolic pressure is normal. Pulmonic Valve Structurally normal pulmonic valve without significant stenosis. There is no pulmonic regurgitation. Pericardium Normal pericardium without effusion. Aorta Normal ascending aorta dimension. IVC The inferior vena cava appears normal. CONCLUSIONS Normal left ventricular size, systolic function and wall thickness, with no regional wall motion abnormalities. Left ventricular ejection fraction is estimated at 55 %. Grade I/IV diastolic dysfunction (abnormal relaxation filling pattern), normal to mildly elevated filling pressures. Normal right ventricular size. Normal right ventricular systolic function. Catheter/pacemaker wire visualized in the right ventricle. There is no pericardial effusion. Mildly thickened mitral valve. Mild mitral annular calcification. No mitral valve stenosis. Mild mitral valve regurgitation. When compared to the prior echo,ejection fraction has improved from 45-50% to 55% now.. Joy Espinoza MD (Electronically Signed) Final Date: 06 September 2024 19:33 S
--- NOTE | 2024-09-06 11:58 | CTR_ITS ---
PROCEDURE INFORMATION: Exam: CT Chest Without Contrast; Diagnostic Exam date and time: 09/06/2024 2:55 PM Age: 84 years old Clinical indication: Other: Hypoxia; Additional info: Hypoxia, new o2 requirement TECHNIQUE: Imaging protocol: Diagnostic computed tomography of the chest without contrast. Radiation optimization: All CT scans at this facility use at least one of these dose optimization techniques: automated exposure control; mA and/or kV adjustment per patient size (includes targeted exams where dose is matched to clinical indication); or iterative reconstruction. COMPARISON: CT chest without contrast January 25, 2019. RADIATION DOSE METRICS: Total DLP (mGy-cm): 367.66 FINDINGS: Limitations: Study is suboptimal due to excessive motion artifact. Further limited by lack of contrast and by streak artifact from the arms at the sides. Tubes, catheters and devices: Unchanged left pacemaker/AICD. Lungs: Unchanged bilateral bullous emphysema. Large amounts of new bilateral, mostly dependent and basilar, pneumonitis and atelectasis. Some of this could be pulmonary edema. No other obvious significant pulmonary abnormality, but quite limited by artifact. Pleural spaces: Unremarkable. No pneumothorax. No pleural effusion. Heart: Unremarkable. No cardiomegaly. No pericardial effusion. Coronary arteries: Unchanged small amount of coronary artery calcification. Lymph nodes: Unremarkable. No enlarged lymph nodes. Vasculature: Unremarkable. No aortic aneurysm. Adrenal glands: Unchanged benign 2 cm left adrenal nodule. Otherwise, unremarkable. Bones/joints: Unchanged mild scoliosis. Unchanged multilevel spondylosis. Stable surgical changes cervical spine. Unchanged 4 mm anterolisthesis of C7 on T1. Otherwise, unremarkable. Soft tissues: Otherwise, unremarkable visualized body wall. Otherwise, unremarkable soft tissues. Other findings: Otherwise, grossly unremarkable visualized upper abdominal structures. CT/CT chest wo con [id number] IMPRESSION: 1. Large amounts of new bilateral, mostly dependent and basilar, pneumonitis and atelectasis. Some of this could be pulmonary edema. 2. No other acute findings identified, but quite limited by artifact. 3. Additional details as above.
--- NOTE | 2024-09-06 12:15 | ECG_ITS ---
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
--- NOTE | 2024-09-06 12:28 | US_ITS ---
WS: [id number] ULTRASOUND RENAL TECHNIQUE: Ultrasound examination of both kidneys. CLINICAL INFORMATION: jean COMPARISON: None. FINDINGS: Technically difficult study due to bowel gas and patient mobility RIGHT: Right kidney is normal in size and appearance. Echogenicity: Normal. Cortical thickness: 0.9 cm; Normal. Hydronephrosis: None. Perinephric fluid: None. Right kidney measures: 9.0 cm x 5.5 cm x 6.2 cm. LEFT: Left kidney is normal in size and appearance. Echogenicity: Normal. Cortical thickness: 1.1 cm; Normal. Hydronephrosis: None. Perinephric fluid: None. Left kidney measures: 9.6 cm x 5.6 cm x 6.3 cm. US/US renal BI* [id number] IMPRESSION: Technically difficult study due to bowel gas and patient mobility 1. No hydronephrosis in either kidney. 2. Aorta not visualized. 3. Saldana catheter.
[2024-09-06 12:31] LABS: NT Pro B Type Natriuretic Pept 1582 pg/mL (0-450); Procalcitonin 25.19 ng/mL (0-0.5)
[2024-09-06] MEDS: potassium chloride ER 20 mEq Tablet 40 MEQ PO (12:33)
[2024-09-06] MEDS: morphine 4 mg/mL SDV 1 mL 2 MG IVP (12:38)
[2024-09-06] MEDS: FUROsemide 10 mg/mL SDV 4mL 40 MG IVP (12:38)
[2024-09-06 12:42] LABS: C Reactive Protein 57.4 mg/L (0.0-4.9)
[2024-09-06] MEDS: ondansetron 2 mg/ML SDV 2 mL 4 MG IVP ×3 (12:54→18:06)
[2024-09-06 13:00] LABS: Troponin(5th) Baseline 32 ng/L (0-10)
--- NOTE | 2024-09-06 13:21 | P.PN_ITS ---
Subjective 2 Subjective: Seen this morning. Patient complains of chest pain. at bedside. States that she has early dementia and she has good days and bad days. She is on 6 L nasal cannula at this time. Recently was started on methadone possibly by her primary care doctor. Vitals/I&O/Wt Last Vital Signs Temp 98.3 F 09/06/24 12:00 Pulse 85 09/06/24 12:00 Resp 27 H 09/06/24 12:38 BP 131/65 09/06/24 12:00 Pulse Ox 94 09/06/24 12:38 O2 Del Method Nasal Cannula 09/06/24 12:00 O2 Flow Rate 6 09/05/24 15:54 09/05/24 09/06/24 09/06/24 22:59 06:59 14:59 Intake Total 1100 / 1100 1622 / 2722 360 / 360 Output Total 0 / 0 Balance 1100 / 1100 1622 / 2722 360 / 360 Weight last 48 hrs Weight 84.368 kg Weight 82.645 kg Weight 83.149 kg Weight 95.254 kg Physical Exam 2 Narrative: General: Alert oriented x1, patient seen sitting up in bed on 6 L nasal cannula at bedside, complains of chest pain. HEENT: Normocephalic, atraumatic, EOMI, Cardio: Paced rhythm, normal S1-S2, Respiratory: Crackles bilaterally at bases GI: Abdomen soft, nontender, nondistended, bowel sounds + Extremities: Trace to 1+ edema bilateral lower extremities Data 09/06/24 01:05 09/06/24 01:05 Micro: Microbiology 09/05/24 17:15 Blood Culture - Preliminary Blood SPECIMEN COLLECTED 09/05/24 17:22 Blood Culture - Preliminary Blood SPECIMEN COLLECTED A&P Assessment and plan (1) Hypoxia: Likely multifactorial apparently per official report patient does not have pneumonia - Continue to monitor closely empiric anticoagulant till patient renal failure resolves for a scan if need be to rule out PE. (2) JULIET (acute kidney injury): Patient is with worsening JULIET than prior - Continue to treat and keep medication renal friendly (3) Elevated troponin: Troponin elevation with no chest pain nothing much going on with this patient except for metabolic encephalopathy, no chest pains it is most likely due to renal failure lack of good elimination of troponin. (4) Acute metabolic encephalopathy: Metabolic encephalopathy due to renal failure must continue to treat and optimize (5) Alzheimer disease: (6) Leukocytosis (leucocytosis): (7) Dehydration: Plan 09/06/[address] chest without contrast Procalcitonin elevated at 25. Check respiratory viral panel Check troponin series Stat EKG Continue Zosyn Add vancomycin check MRSA nares swab Possibility of PE, not ruled out. Creatinine elevated to 2.4. Will hold off on giving contrast Check D-dimer and will age-adjusted. Possibility of pneumonia? Unclear reason of weakness however possibility of opioid-induced? Versus pneumonia. Heart failure exacerbation not ruled out. Check echocardiogram Check urine sodium. Nephrology on board. Appreciate recommendations PDMP PDMP Reviewed: Not Reviewed Attestations 2 Medical Necessity Statement*: Patient with worsening renal failure and with an obvious metabolic encephalopathy with confusion desire for inpatient care with consultation of nephrology to follow-up with the patient. Telemetry nephrology has been called and yet to call back please follow-up on this concerning nephrology follow-up. Patient deserves a minimum of 2 midnights for care Diagnoses Hypoxia R09.02 JULIET (acute kidney injury) N17.9 Elevated troponin R79.89 Acute metabolic encephalopathy G93.41 Alzheimer disease G30.9; F02.80 Leukocytosis (leucocytosis) D72.829 Dehydration E86.0
[2024-09-06] MEDS: albuterol 2.5 MG/0.5 ML NEB INHALATION ×2 (13:48→20:49)
[2024-09-06 13:54] LABS: Urine Random Sodium 30 mmol/L
[2024-09-06 14:20] LABS: Adenovirus Not Detected (NOT DETECT); Chlamydia Pneumoniae Not Detected (NOT DETECT); Coronavirus 229E,HKU1,NL63,OC4 Not Detected (NOT DETECT); Human Metapneumovirus Not Detected (NOT DETECT); Human Rhinovirus/Enterovirus Not Detected (NOT DETECT); Influenza A Not Detected (NOT DETECT); Influenza A H1 Not Detected (NOT DETECT); Influenza A H1-2009 Not Detected (NOT DETECT); Influenza A H3 Not Detected (NOT DETECT); Influenza B Not Detected (NOT DETECT); Mycoplasma Pneumoniae Not Detected (NOT DETECT); Parainfluenza Virus Type 1 Not Detected (NOT DETECT); Parainfluenza Virus Type 2 Not Detected (NOT DETECT); Parainfluenza Virus Type 3 Detected (NOT DETECT); Parainfluenza Virus Type 4 Not Detected (NOT DETECT); Respiratory Syncytial Virus A Not Detected (NOT DETECT); Respiratory Syncytial Virus B Not Detected (NOT DETECT); SARS-COV-2 Not Detected (NOT DETECT)
[2024-09-06] MEDS: vancomycin 1,750 MG/350 ML PIGGYBACK 175 MG IV (15:30)
[2024-09-06 15:36] LABS: Hematocrit 49.8 % (36-47); Mean Corpuscular HGB Conc 31.1 g/dL (30-55); Mean Corpuscular Hemoglobin 31.3 pg (27-33); Mean Corpuscular Volume 100.6 fl (85-98); Mean Platelet Volume 12.3 fL (7.4-10.4); Platelet Count 132 10^3/cmm (157-399); Red Blood Count 4.95 10^6/uL (3.85-5.65); Red Cell Distribution Width 14.8 % (12.1-15.1); White Blood Count 27.29 10^3/uL (3.29-11.43)
--- NOTE | 2024-09-06 15:49 | ECG_ITS ---
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
[2024-09-06 16:02] LABS: Troponin 5 2HR 34.14 ng/L (0-10); Troponin 5 2HR Delta 2.14 ABS# (0-10)
[2024-09-06 16:19] LABS: Alanine Aminotransferase 9 U/L (0-33); Alkaline Phosphatase 38 U/L (35-105); Calcium 8.8 mg/dL (8.5-10.5); Chloride 99 mmol/L (98-107); Creatinine Clr Calc Pharmacy 19.3659; Osmolality Calculated 291 mOsm/kg (285-295); Sodium 136 mmol/L (136-145); Total Bilirubin 1.1 mg/dL (0.15-1.2); Total Protein 6.9 g/dL (6.6-8.7)
--- NOTE | 2024-09-06 16:22 | P.CONIM_ITS ---
<Statement entered by Joy Espinoza MD - 09/06/24 21:08> Patient was evaluated and cared for in conjunction with an advanced practice practitioner. I personally examined the patient and reviewed the chart and all pertinent data including imaging, telemetry, and laboratory results. I discussed the patient in detail with the advanced practice practitioner. Please see their note for complete H&P testing result and agreed upon plan of care for the patient. 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 GENERAL: Patient is lethargic and confused HEART: Regular S1 and S2. No murmur, rub or gallop. LUNGS: Decreased breath sounds with slight prolonged expiration CENTRAL NERVOUS SYSTEM: Grossly nonfocal. EXTREMITIES: Lower extremities with out edema bilaterally. Pneumonitis/pneumonia etiology bacterial versus viral Acute kidney injury Nonischemic cardiomyopathy History of improved left ventricular ejection fraction Agree with broad-spectrum antibiotic Patient does not appear to be volume overloaded, echocardiogram today showed normal ejection fraction 55% which is improved from the prior 45 to 50% Gentle IV hydration with 75 mL of IV fluid normal saline for acute kidney injury Hold diuretic for now Pulmonary toilet Will continue to monitor the patient along with primary care team. Providers/Reason For Consult 2 Consulting Physician/Specialty*: Joy Espinoza MD Reason for Consult*: Shortness of breath, history of systolic heart failure Requesting Physician: Dr. Carter Attending Physician: Otilia Carter MD Primary Care Provider: Jesus Fuentes MD History of Present Illness History of Present Illness Alphonso Reyna is a 84 year old female who came into the ER via EMS yesterday evening accompanied by her with a main complaint of fall and generalized weakness. is with her at the time of exam. He states at baseline she is confused but she had fallen and he could not get her back up and she had some shortness of breath so EMS was called. On arrival she was on 3 L still satting low at 80%. He states that he has had some kind of respiratory virus a couple days ago and that she has as well with a cough. She does have a history of COPD and cardiomyopathy with ELECTRICIAN'S ASSISTANT-D in place. Her last ejection fraction in June 2023 was 45 to 50%. Most of the history is being obtained from due to patient is pleasantly confused. He states that she has never had any kind of intervention to her coronaries. She was found to be dehydrated in the ER and given fluids gently. She denies any chest pressure at this time. States that shortness of breath has improved. She did get 1 dose of Lasix 40 IV. She did test positive for parainfluenza 3 virus. EKG showed paced rhythm. White cell was high at 21.43 with a left shift. She does have an JULIET with a creatinine of 1.9. Baseline is 0.8. Troponin was mildly elevated at 35-33-[address] of the chest was performed that showed large amounts of new bilateral mostly dependent and basilar pneumonitis and atelectasis. Current blood pressure is 131/65 with a pulse of 90. Probnp was 1582. Review of Systems 2 Narrative: Consitutional: denies fever, chills, body aches Card: Denies chest pain, palpitations, irregular heart rhythm, reports chronic trace edema Resp: reports shortness of breath, improved, denies hemoptysis, reports cough and hx of upper respiratory virus x3 days GI: denies abdominal pain, denies nausea or voimting, denies blood in stool Musc: Denies extremity pain, denies limited range of motion or recent injury Skin: Denies rash, lesions, or wounds, denies changes to skin color Neuro: Denies nubmness in extremities, h/a, s/s of stroke Medications/Allergies Home Medications ?Medication ?Instructions ?Recorded ?Confirmed ?Last Taken ?Type ascorbic acid (vitamin C) 1,000 mg 500 mg PO DAILY 09/06/24 Unknown History tablet hydrocodone 10 mg-acetaminophen 1 tab PO Q8H PRN Pain 08/16/19 09/06/24 Unknown History 325 mg tablet magnesium 250 mg tablet 250 mg PO DAILY 08/16/1907/28 Unknown History acetaminophen 500 mg tablet 1,000 mg PO Q6H PRN Pain 0 08/05/21 09/06/24 Unknown History (Tylenol Extra Strength) nitroglycerin 0.4 mg sublingual 0.4 mg sublingual Q5M PRN Chest 08/18/21 09/06/24 Unknown History tablet Pain CAM walker #1 ea 07/26/23 09/06/24 Unkn own Rx allopurinol 300 mg tablet 300 mg PO DAILY #90 tabs 03/2809/06/24 Unknown Rx carvedilol 12.5 mg tablet 12.5 mg PO BID #180 tabs 03/2809/06/24 Unknown Rx furosemide 40 mg tablet 40 mg PO BID #160 tabs 02/1409/06/24 Unknown Rx venlafaxine 150 mg 150 mg PO DAILY #90 caps 03/2809/06/24 Unknown Rx capsule,extended release 24 hr (Effexor XR) albuterol sulfate 90 mcg/actuation 1 inh inhalation QI D #6.7 grams 07/17/24 09/06/24 Unknown Rx aerosol inhaler (Ventolin HFA) estradiol-norethindrone acet 1 1 tab PO DAILY 90 days #90 tabs 08/17/24 09/06/24 Unknown Rx mg-0.5 mg tablet pregabalin 300 mg capsule (Lyrica) 300 mg PO BID 30 da ys #60 caps 08/17/24 09/06/24 Unknown Rx methadone 5 mg tablet 5 mg PO QAM 08/23/24 5 Unknown History fluticasone 500 mcg-salmeterol 50 1 inh inhalation BID 09/06/24 09/06/24 Unknown History mcg/dose blistr powdr for inhalation (Advair Diskus) levothyroxine 50 mcg tablet 50 mcg PO QAM 09/06/2407/28 Unknown History montelukast 10 mg tablet 10 mg PO DAILY 09/06/2407/28 Unknown History potassium chloride 20 mEq 20 meq PO BID 09/06/2409/06 Unknown History tablet,extended release(part/cryst) rivastigmine tartrate 1.5 mg 1.5 mg PO BID 09/06/24 Unknown History capsule rosuvastatin 40 mg tablet (Crestor) 40 mg PO QPM 09/0609/06/24 Unknown History Allergies Allergy/AdvReac Type Severity Reaction Status Date / Time No Known Allergies Allergy Verified 08/23/24 13:00 Current Medications Generic Name Dose Route Start Last Admin Trade Name Freq PRN Reason Stop Dose Admin Albuterol Sulfate 2.5 mg 09/06/24 13:41 09/06/24 13:48 Albuterol 2.5 Mg/0.5 Ml Neb INHALATION 2.5 mg Q4H.RESPIRATORY PRN Administration SHORTNESS OF BREATH Albuterol Sulfate 2.5 mg 09/06/24 14:00 09/06/24 14:18 Albuterol 2.5 Mg/0.5 Ml Neb INHALATION Not Given Q6H.RESP MARVIN Heparin Sodium (Porcine) 5,000 unit 09/06/24 09:00 09/06/24 08:36 Heparin 5,000 Unit/Ml Inj 1 Ml SUBCUT 5,000 unit Q12H MARVIN Administration Ondansetron HCl 4 mg 09/05/24 23:56 09/06/24 12:54 Ondansetron 2 Mg/Ml Sdv 2 Ml IVP 4 mg Q8H PRN Administration vomiting, or N/V if npo PFSH Acute 2 PFSH: Medical History COPD (chronic obstructive pulmonary disease) Hormone replacement therapy Depression Hyperlipidemia Cardiomyopathy CHF (congestive heart failure) Social History Smoking and tobacco/nicotine status: former use of tobacco/nicotine Alcohol intake: current Alcohol intake frequency: 0-2 Drinks per Day Alcohol type: beer Substance/Drug Use: never Adopted: No Caregiver/support person: No Lives independently: No Household members: spouse Marital status: service: No Sexually active: Yes Do you think of yourself as: Straight/Heterosexual Current gender identity: Female Vitals/I&O/Wt Last Vital Signs Temp 98.3 F 09/06/24 12:00 Pulse 90 09/06/24 13:50 Resp 24 H 09/06/24 13:50 BP 131/65 09/06/24 12:00 Pulse Ox 94 09/06/24 13:57 O2 Del Method Nasal Cannula 09/06/24 13:57 O2 Flow Rate 5 09/06/24 13:57 09/06/24 09/06/24 09/06/24 06:59 14:59 22:59 Intake Total 1622 / 2722 1720 / 1720 Balance 1622 / 2722 1720 / 1720 Weight last 48 hrs Weight 186 lb Weight 182 lb 3.2 oz Weight 183 lb 5 oz Weight 210 lb Physical Exam 2 Narrative: General: No apparent distress, pleasantly confused HENMT: normoceophalic Muskuloskeletal: Full ROM Respiratory: Normal respiratory effort, bilateral lower lobes severely diminished anteriorly and posteriorly, no use of accessory muscles Cardio: No JVD, regular rate, regular rhythm, S1 S2 normal, no murmurs, peripheral pulses 2+ radial palpated bilaterally GI: Normal to inspection, nondistended Extremities: Full ROM, normal, normal capillary refill, no cyanosis, trace edema bilateral lower etremities Neuro: Alert to person Psych: Affect normal Skin: No rashes or lesions noted, no wounds Urinary Catheter Management: Saldana Latex Free: Cath Placed During This Visit: yes Urinary Catheter Date of Insertion: 09/06/24 Urinary Catheter Time of Insertion: 13:00 Data 09/06/24 01:05 09/06/24 15:12 Micro: Microbiology 09/05/24 17:15 Blood Culture - Preliminary Blood SPECIMEN COLLECTED 09/05/24 17:22 Blood Culture - Preliminary Blood SPECIMEN COLLECTED A&P Assessment and plan (1) CHF (congestive heart failure): (2) Cardiomyopathy: (3) Pacemaker: (4) Elevated troponin: (5) JULIET (acute kidney injury): (6) Dehydration: (7) Infection due to parainfluenza virus 3: Plan Patient has acute kidney injury possibly due to dehydration and has received fluids. She received 1 dose of Lasix 40 mg IV push. Creatinine is increased at 2.4. Will hold off on any further diuresis at this time and monitor kidney function. Patient tested positive for parainfluenza virus type III. CT chest showed evidence of large amounts of atelectasis and pneumonitis most likely stemming from the respiratory virus that she has. Troponins are mildly elevated most likely due to demand ischemia. She is chest pain-free at this time. Will continue to monitor for worsening symptoms. Echo has been done but not read yet. Further recommendations to follow after that. Thank you, Dr. Carter, for allowing us to care for this very pleasant 84 year old female. PDMP PDMP Reviewed: Not Reviewed Coding Level of Care Code Acute Code for Chg Fwd Diagnoses Chronic systolic congestive heart failure I50.22 Heart failure type: systolic Heart failure chronicity: chronic Dilated cardiomyopathy I42.0 Cardiomyopathy type: dilated Pacemaker Z95.0 Elevated troponin R79.89 JULIET (acute kidney injury) N17.9 Dehydration E86.0 Infection due to parainfluenza virus 3 B34.8
[2024-09-06 16:25] LABS: Albumin Level 2.9 g/dL (3.5-5.2); Blood Urea Nitrogen 33 mg/dL (8-23); Carbon Dioxide 18 mmol/L (22-29); Glucose 128 mg/dL (65-115)
[2024-09-06 16:42] LABS: Slide Review Slide Review Perform
[2024-09-06 16:43] LABS: Absolute Neutrophil 23.7 10^3/cmm (1.4-6.5); Absolute Segmented Neutrophil 14.5 10/cmm (1.6-7.1); Band Neutrophils Absolute 9.3 10^3/cmm (0.0-1.2); Eosinophils 0 %; Giant Platelets Trace; Lymphocytes 3 %; Lymphocytes Absolute 1.4 10^3/cmm (1.2-3.4); Macrocytosis 1+; Monocytes Absolute 0.5 10^3/cmm (0.1-0.6); Platelet Estimate Normal (Normal); Segmented Neutrophils 53 %; Total Cells Counted 100 (0-100)
[2024-09-06 16:55] LABS: Aspartate Amino Transferase 35 U/L (0-32)
--- NOTE | 2024-09-06 17:51 | PC.NURSE ---
Patient verry restless and and agitated pt removed her IV catheter, keep pulling off her baptiste catheter and oxygen,desat to 82% on 2 L, increase to [address] garcia, received order to give zyprexa 2.5 mg IM one time and 1:1 sitter.
[2024-09-06] MEDS: OLANZapine 10 mg VIAL 2.5 MG IM ×2 (18:03→19:06)
[2024-09-06] MEDS: piperacillin-tazobactam 3.375 GM in sodium chloride 0.9% (plus) 50 ML IV (18:28)
--- NOTE | 2024-09-06 18:30 | PC.NURSE ---
Addendum entered by Arlene Castellon RN 09/06/24 21:08: Notified RT night time on pt's oxygen status. Original Note: Patient keeps taking off her oxygen in her nose. She desat to 82% on 2 L/min. Increase her requirement back to 5 L/NC. She is still short of breath,restless and delirious. New IV access to left forearm #22 gauge. IV antibiotics has been retimed.
--- NOTE | 2024-09-06 18:48 | PM.CONSULT ---
Providers/Reason For Consult Consulting Physician/Specialty*: kommana/Nephrology Reason for Consult*: JULIET Attending Physician: Otilia Carter MD Primary Care Provider: Jesus Fuentes MD History of Present Illness History of Present Illness Alphonso Reyna is a 84 year old female Patient is a 84-year-old female with past medical history of CHF, nonischemic cardiomyopathy, hypertension, was brought to the emergency department due to altered mental status. Patient was noted to be hypoxic to 80s by EMS. On presentation noted to have JULIET with a creatinine of 1.9 that has gotten worse to 2.4 today. Baseline creatinine was 0.8 few months ago. Troponin also elevated. CT chest was done without contrast that showed new bilateral basilar infiltrates. Currently on antibiotics. White count was elevated at 21,000. Review of Systems Narrative: Other RO negative Medications/Allergies Home Medications ?Medication ?Instructions ?Recorded ?Confirmed ?Last Taken ?Type ascorbic acid (vitamin C) 1,000 mg 500 mg PO DAILY 08/16/19 09/06/24 Unknown History tablet hydrocodone 10 mg-acetaminophen 1 tab PO Q8H PRN Pain 08/16/19 09/06/24 Unknown History 325 mg tablet magnesium 250 mg tablet 250 mg PO DAILY 08/16/19 09/06/24 Unknown History acetaminophen 500 mg tablet 1,000 mg PO Q6H PRN Pain 08/05/21 09/06/24 Unknown History (Tylenol Extra Strength) nitroglycerin 0.4 mg sublingual 0.4 mg sublingual Q5M PRN Chest 08/18/21 09/06/24 Unknown History tablet Pain CAM walker #1 ea 07/26/23 09/06/24 Unknown Rx allopurinol 300 mg tablet 300 mg PO DAILY #90 tabs 02/15/24 09/06/24 Unknown Rx carvedilol 12.5 mg tablet 12.5 mg PO BID #180 tabs 02/15/24 09/06/24 Unknown Rx furosemide 40 mg tablet 40 mg PO BID #160 tabs 02/15/24 09/06/24 Unknown Rx venlafaxine 150 mg 150 mg PO DAILY #90 caps 02/15/24 09/06/24 Unknown Rx capsule,extended release 24 hr (Effexor XR) albuterol sulfate 90 mcg/actuation 1 inh inhalation QID #6.7 grams 07/17/24 09/06/24 Unknown Rx aerosol inhaler (Ventolin HFA) estradiol-norethindrone acet 1 1 tab PO DAILY 90 days #90 tabs 08/17/24 09/06/24 Unknown Rx mg-0.5 mg tablet pregabalin 300 mg capsule (Lyrica) 300 mg PO BID 30 days #60 caps 08/17/24 09/06/24 Unknown Rx methadone 5 mg tablet 5 mg PO QAM 08/23/24 09/06/24 Unknown History fluticasone 500 mcg-salmeterol 50 1 inh inhalation BID 09/06/24 09/06/24 Unknown History mcg/dose blistr powdr for inhalation (Advair Diskus) levothyroxine 50 mcg tablet 50 mcg PO QAM 09/06/24 09/06/24 Unknown History montelukast 10 mg tablet 10 mg PO DAILY 09/06/24 09/06/24 Unknown History potassium chloride 20 mEq 20 meq PO BID 09/06/24 09/06/24 Unknown History tablet,extended release(part/cryst) rivastigmine tartrate 1.5 mg 1.5 mg PO BID 09/06/24 09/06/24 Unknown History capsule rosuvastatin 40 mg tablet (Crestor) 40 mg PO QPM 09/06/24 09/06/24 Unknown History Allergies Allergy/AdvReac Type Severity Reaction Status Date / Time No Known Allergies Allergy Verified 08/23/24 13:00 Current Medications Generic Name Dose Route Start Last Admin Trade Name Freq PRN Reason Stop Dose Admin Albuterol Sulfate 2.5 mg 09/06/24 13:41 09/06/24 13:48 Albuterol 2.5 Mg/0.5 Ml Neb INHALATION 2.5 mg Q4H.RESPIRATORY PRN Administration SHORTNESS OF BREATH Albuterol Sulfate 2.5 mg 09/06/24 14:00 09/06/24 14:18 Albuterol 2.5 Mg/0.5 Ml Neb INHALATION Not Given Q6H.RESP MARVIN Heparin Sodium (Porcine) 5,000 unit 09/06/24 09:00 09/06/24 08:36 Heparin 5,000 Unit/Ml Inj 1 Ml SUBCUT 5,000 unit Q12H MARVIN Administration Ondansetron HCl 4 mg 09/05/24 23:56 09/06/24 18:06 Ondansetron 2 Mg/Ml Sdv 2 Ml IVP 4 mg Q8H PRN Administration vomiting, or N/V if npo PFSH Acute PFSH: Medical History COPD (chronic obstructive pulmonary disease) Hormone replacement therapy Depression Hyperlipidemia Cardiomyopathy CHF (congestive heart failure) Social History Smoking and tobacco/nicotine status: former use of tobacco/nicotine Alcohol intake: current Alcohol intake frequency: 0-2 Drinks per Day Alcohol type: beer Substance/Drug Use: never Adopted: No Caregiver/support person: No Lives independently: No Household members: spouse Marital status: service: No Sexually active: Yes Do you think of yourself as: Straight/Heterosexual Current gender identity: Female Vitals/I&O/Wt Last Vital Signs Temp 97.6 F 09/06/24 16:00 Pulse 90 09/06/24 16:00 Resp 27 H 09/06/24 16:00 BP 116/75 09/06/24 16:00 Pulse Ox 93 09/06/24 16:00 O2 Del Method Nasal Cannula 09/06/24 13:57 O2 Flow Rate 5 09/06/24 13:57 09/06/24 09/06/24 09/06/24 06:59 14:59 22:59 Intake Total 1622 / 2722 1720 / 1720 382.5 / 2102.5 Balance 1622 / 2722 1720 / 1720 382.5 / 2102.5 Weight last 48 hrs Weight 84.368 kg Weight 82.645 kg Weight 83.149 kg Weight 95.254 kg Physical Exam Narrative: Patient is awake alert, no distress, on 5 L O2 by nasal cannula PERRLA S1-S2 regular rate and rhythm per report Lungs with decreased breath sounds and crackles per report Abdomen soft nontender per report No pedal edema Urinary Catheter Management: Saldana Latex Free: Cath Placed During This Visit: yes Urinary Catheter Date of Insertion: 09/06/24 Urinary Catheter Time of Insertion: 13:00 Data 09/06/24 15:12 09/06/24 15:12 Micro: Microbiology 09/05/24 17:22 Blood Culture - Preliminary Blood NEGATIVE TO DATE 09/05/24 17:15 Blood Culture - Preliminary Blood NEGATIVE TO DATE A&P Assessment and plan (1) JULIET (acute kidney injury): 1. Acute kidney injury: JULIET likely from ATN in the setting of acute infection. Status post IV fluids and also received a dose of Lasix. Will continue to monitor for now, no acute indication for dialysis, check renal ultrasound and urine electrolytes. Will give as needed Lasix 2. Acute respiratory failure: In the setting of possible pneumonia, antibiotics per primary team 3. CHF with ejection fraction 45 to50 % , as needed Lasix 4. Metabolic acidosis: Mild, monitor 5. History of cardiomyopathy PDMP PDMP Reviewed: Not Reviewed Consult Attestations Medical Necessity Statement: Per medicine team Coding Level of Care Code Acute Code for [facility] Diagnoses JULIET (acute kidney injury) N17.9
[2024-09-06] MEDS: water for injection-sterile 10 ML (19:05)
[2024-09-06] MEDS: ziprasidone 20 mg/mL SDV 10 MG IM (19:05)
[2024-09-06 19:17] LABS: Troponin 5 6HR 34.83 ng/L (0-10); Troponin 5 6HR Delta 2.83 ng/L (0-12)
--- NOTE | 2024-09-06 19:44 | PHA.VACGOAL ---
Vancomycin Goal - Goal Vancomycin Goal:: 15-20 mg/L Vancomycin Indication:: Pneumonia - Therapy Current therapy:: Pip/Tazo Day of therpy:: Day []of [] . Actual body weight (kg): 84.368 kg - Data Labs: WBC 27.29 10^3/uL (3.29-11.43) H 09/06/24 15:12 RBC 4.95 10^6/uL (3.85-5.65) 09/06/24 15:12 Hgb 15.50 g/dL (11.27-16.99) 09/06/24 15:12 Hct 49.8 % (36-47) H 09/06/24 15:12 MCV 100.6 fl (85-98) H 09/06/24 15:12 MCH 31.3 pg (27-33) 09/06/24 15:12 MCHC 31.1 g/dL (30-55) 09/06/24 15:12 RDW 14.8 % (12.1-15.1) 09/06/24 15:12 Sodium 136 mmol/L (136-145) 09/06/24 15:12 Potassium 4.0 mmol/L (3.5-5.1) 09/06/24 15:12 Chloride 99 mmol/L (98-107) 09/06/24 15:12 Carbon Dioxide 18 mmol/L (22-29) L 09/06/24 15:12 Anion Gap 23.0 (5-19) H 09/06/24 15:12 BUN 33 mg/dL (8-23) H 09/06/24 15:12 Creatinine 2.5 mg/dL (0.5-0.9) H 09/06/24 15:12 GFR Calculation Not Reportable 09/06/24 15:12 Treatment plan:: new consult Regimen:: New start vancomycin for pneumonia. No prior vancomycin history found. Load dose of 1750 mg ordered. Due to Crcl being <30 mL/min will start patient on pulse dosing post load dose. Vancomycin level ordered for @1500 on 09/07/24.
[2024-09-06 19:55] LABS: MRSA PCR OZH (swab) NOT DETECTED (Not Detecte)
[2024-09-06] MEDS: budesonide 0.5 mg/2 mL Neb INHALATION (20:49)
--- NOTE | 2024-09-06 21:13 | PC.NURSE ---
Attempted to give patient a drink of water, patient is starring blanking at wall. Attempted to have patient sip through straw again. After some time patient took a drink then cough shortly after.
--- NOTE | 2024-09-06 21:15 | PC.NURSE ---
Notified RT of patient respiratory status around shift change. Patient is showing signs of labored abdominal breathing with audible wheezing, lung sounds are course/crackly. Was on 5L NC but is now on hi-flow nasal cannula 45/45 as well as getting a breathing treatment. Per patient she is feeling better, when asked about her SOB she says its all gone however patient still shows abdominal breathing with sats at 92%.
[2024-09-07] VITALS (15 sets, daily range): BP systolic 111–146; BP diastolic 53–71; PULSE 65–90; RESP 16–23; TEMP 36.2–36.9; O2SAT 90–95
--- NOTE | 2024-09-07 00:31 | PC.NURSE ---
Clarified with Dr. Espinoza via telephone regarding IVF. Let MD know that at beginning of shift patient was experiencing labored breathing and was placed on heated hiflow. At this time Dr. Espinoza say to hold IVF and will reevaluate in AM, per the echo she has a normal EF but her kidney function is poor. Again will reevaulate breathing and IVF situation in AM.
[2024-09-07] MEDS: albuterol 2.5 MG/0.5 ML NEB INHALATION ×2 (03:01→07:36)
[2024-09-07] MEDS: piperacillin-tazobactam 3.375 GM in sodium chloride 0.9% (plus) 50 ML IV ×2 (04:55→18:09)
[2024-09-07 05:27] LABS: Basophils # 0.1 10^3/uL (0.0-0.1); Basophils % 0.4 %; Hematocrit 44.7 % (36-47); Lymphocytes # 0.9 10^3/uL (0.8-4.8); Lymphocytes % 4.2 %; Mean Corpuscular HGB Conc 30.6 g/dL (30-55); Mean Corpuscular Hemoglobin 30.2 pg (27-33); Mean Corpuscular Volume 98.7 fl (85-98); Mean Platelet Volume 12.3 fL (7.4-10.4); Monocytes # 1.4 10^3/uL (0.2-0.9); Monocytes % 6.6 %; Neutrophils # 18.12 10^3/uL (1.8-7.7); Neutrophils % 88.2 %; Nucleated Red Blood Cells % 0 %; Platelet Count 112 10^3/cmm (157-399); Red Blood Count 4.53 10^6/uL (3.85-5.65); Red Cell Distribution Width 14.6 % (12.1-15.1); White Blood Count 20.56 10^3/uL (3.29-11.43)
[2024-09-07 05:48] LABS: Magnesium 2.5 mg/dL (1.7-2.3)
[2024-09-07 05:54] LABS: Blood Urea Nitrogen 41 mg/dL (8-23); Calcium 8.3 mg/dL (8.5-10.5); Carbon Dioxide 20 mmol/L (22-29); Chloride 103 mmol/L (98-107); Creatinine Clr Calc Pharmacy 16.4035; Glucose 109 mg/dL (65-115); Osmolality Calculated 301 mOsm/kg (285-295); Sodium 140 mmol/L (136-145)
[2024-09-07 06:12] LABS: Anion Gap 20.7 (5-19); Potassium 3.7 mmol/L (3.5-5.1)
--- NOTE | 2024-09-07 06:15 | PC.NURSE ---
Addendum entered by Bernie Culver RN 09/07/24 06:21: Received a phone call from radiology saying that patient is unable to do the first part as she is not properly closing her mouth around the mouth piece. She is also attempting to get out of the bed. Radiology is going to attempt second part of VQ scan. Dr. Carter notified. Original Note: Patient of floor for VQ scan.
[2024-09-07 06:31] LABS: Slide Review Slide Review Perform
[2024-09-07] MEDS: budesonide 0.5 mg/2 mL Neb INHALATION ×2 (07:32→20:33)
--- NOTE | 2024-09-07 07:48 | P.PN_ITS ---
Subjective 2 Subjective: pt confused at times , Increased o2 requirement - on 45 % High flow NC Medications: Reviewed: Yes Vitals/I&O/Wt Last Vital Signs Temp 98.5 F 09/07/24 05:08 Pulse 69 09/07/24 07:37 Resp 18 09/07/24 07:36 BP 146/69 09/07/24 05:08 Pulse Ox 92 09/07/24 07:37 O2 Del Method Heated High Flow 09/07/24 07:36 O2 Flow Rate 45 09/07/24 07:37 FiO2 47 09/07/24 07:37 09/06/24 09/07/24 09/07/24 22:59 06:59 14:59 Intake Total 432.5 / 2152.5 50 / 2202.5 Output Total 1200 / 1200 400 / 1600 Balance -767.5 / 952.5 -350 / 602.5 Weight last 48 hrs Weight 81.284 kg Weight 84.368 kg Weight 82.645 kg Weight 83.149 kg Weight 95.254 kg Physical Exam 2 Narrative: sleeping , PERRLA S1-S2 regular rate and rhythm per report Lungs with decreased breath sounds and crackles per report Abdomen soft nontender per report No pedal edema Urinary Catheter Management: Saldana Latex Free: Cath Placed During This Visit: yes Reason for Continuing Indwelling Catheter: Accurate Measurement of Urinary Output in Critically Ill Patients Urinary Catheter Date of Insertion: 09/06/24 Urinary Catheter Time of Insertion: 13:00 Data 09/07/24 05:08 09/07/24 05:08 Micro: Microbiology 09/05/24 17:22 Blood Culture - Preliminary Blood NEGATIVE TO DATE 09/05/24 17:15 Blood Culture - Preliminary Blood NEGATIVE TO DATE A&P Assessment and plan (1) JULIET (acute kidney injury): 1. Acute kidney injury: JULIET likely from ATN in the setting of acute infection. Status post IV fluids -cr worse today and O2 requirement increased - Will discuss Options of HD vs Conservative manageemnt with family - no acute indication for dialysis today , Renal US with no hydronephrosis -Ordered IV albumin and Will give as needed Lasix 2. Acute respiratory failure: In the setting of possible pneumonia, antibiotics per primary team, V/Q scan pending 3. CHF with ejection fraction 45 to50 % , as needed Lasix 4. Metabolic acidosis: Mild, monitor 5. History of cardiomyopathy PDMP PDMP Reviewed: Not Reviewed Attestations 2 Medical Necessity Statement*: per mediicne team Coding Level of Care Code Acute Code for Chg Fwd Diagnoses JULIET (acute kidney injury) N17.9
[2024-09-07 08:18] LABS: ABG PCO2 41.9 mmHg (35-45); ABG PH Result 7.38 (7.35-7.45); Alveolar-Arterial Oxygen Gradi 26.2 mmHg (5-10); Arterial Blood Gas Hematocrit 43.3 % (37-47); Base Excess ABG -0.6 mmol/L (-2.0-2.0); Blood Gas Allen Test Pos; Blood Gas Operator Identificat WALCI; Blood Gas Sample Site Radial, right; Blood Gas Sample Type Arterial; Carboxyhemoglobin 0.4 %THgb (0.4-20.1); HCO3 ABG 24.7 mmol/L (22-26); Ionized Calcium Level - ABG 1.1 mmol/L (1.1-1.4); Oxygen Device NC; Oxygen Saturation ABG 92.3; PO2 ABG 66.9 mmHg (80.0-100.0); PO2 FiO2 Ratio Arterial Blood 148; Potassium Level - ABG 3.3 mmol/L (3.5-5.0); Total Hemoglobin 14.1 g/dL (12-16)
[2024-09-07] MEDS: FUROsemide 10 mg/mL SDV 2mL 20 MG IVP (08:46)
[2024-09-07] MEDS: methylPREDNISolone sod succ 40 mg/mL INJ IVP ×2 (08:46→18:08)
[2024-09-07] MEDS: sodium chloride 0.9% 1,000 ML 30 ML IV (08:47)
[2024-09-07] MEDS: albumin 25 G/100 ML BAG 60 G IV (08:55)
--- NOTE | 2024-09-07 10:31 | PC.NURSE ---
RT and Dr. Carter messaged that patient will not keep high flow oxygen. Attempted multiple times to replace high flow and patient immediately removed oxygen
[2024-09-07] MEDS: heparin 5,000 unit/mL INJ 1 mL 5000 UNIT SUBCUT ×2 (11:17→21:30)
--- NOTE | 2024-09-07 11:42 | PM.PN ---
Subjective Subjective: Seen this morning. Patient on 47% FiO2, 45 L high flow nasal cannula. She repeatedly attempts to take off the nasal cannula. Able to tell me her name and date of however she believes she is at home. She has required a sitter overnight secondary to being altered. present at bedside. Patient also complains of low back pain. Vitals/I&O/Wt Last Vital Signs Temp 97.8 F 09/07/24 08:00 Pulse 84 09/07/24 08:00 Resp 20 H 09/07/24 08:00 BP 111/53 09/07/24 08:00 Pulse Ox 93 09/07/24 11:07 O2 Del Method Oxymask 09/07/24 11:07 O2 Flow Rate 5 09/07/24 11:07 FiO2 47 09/07/24 07:37 09/06/24 09/07/24 09/07/24 22:59 06:59 14:59 Intake Total 432.5 / 2152.5 50 / 2202.5 10 10 Output Total 1200 / 1200 400 / 1600 Balance -767.5 / 952.5 -350 / 602.5 10 10 Weight last 48 hrs Weight 81.284 kg Weight 84.368 kg Weight 82.645 kg Weight 83.149 kg Weight 95.254 kg Physical Exam Narrative: General: Alert oriented x1, patient seen laying in bed at this time on 12L oxymask HEENT: Normocephalic, atraumatic, EOMI, Cardio: Paced rhythm, normal S1-S2, Respiratory: ronchi bilaterally at bases GI: Abdomen soft, nontender, nondistended, bowel sounds + Extremities: Trace to 1+ edema bilateral lower extremities Skin: No skin breakdown noted. Urinary Catheter Management: Saldana Latex Free: Cath Placed During This Visit: yes Reason for Continuing Indwelling Catheter: Accurate Measurement of Urinary Output in Critically Ill Patients Urinary Catheter Date of Insertion: 09/06/24 Urinary Catheter Time of Insertion: 13:00 Data 09/07/24 05:08 09/07/24 05:08 Micro: Microbiology 09/05/24 17:22 Blood Culture - Preliminary Blood Staphylococcus aureus 09/05/24 17:15 Blood Culture - Preliminary Blood NEGATIVE TO DATE A&P Assessment and plan (1) ARDS (adult respiratory distress syndrome): (2) Hypoxia: Likely multifactorial apparently per official report patient does not have pneumonia - Continue to monitor closely empiric anticoagulant till patient renal failure resolves for a scan if need be to rule out PE. (3) JULIET (acute kidney injury): Patient is with worsening JULIET than prior - Continue to treat and keep medication renal friendly (4) Elevated troponin: Troponin elevation with no chest pain nothing much going on with this patient except for metabolic encephalopathy, no chest pains it is most likely due to renal failure lack of good elimination of troponin. (5) Acute metabolic encephalopathy: Metabolic encephalopathy due to renal failure must continue to treat and optimize (6) Alzheimer disease: (7) Leukocytosis (leucocytosis): (8) Dehydration: (9) Staphylococcus aureus bacteremia: (10) COPD (chronic obstructive pulmonary disease): (11) Osteoarthritis of right knee: (12) Hyperlipidemia: (13) CHF (congestive heart failure): (14) Cardiomyopathy: Plan 09/07/2024 Patient's oxygenation has worsened from 2 L nasal cannula yesterday afternoon up to 45 L high flow this morning. CT chest reviewed which shows large area of atelectasis versus basilar pneumonitis. It is suggestive of ARDS at this point. Creatinine worsening at 2.9 today. Nephrology recommending possible dialysis in next 24 to 48 hours. Blood cultures 1 out of 3 bottles are also positive for Staph aureus. This resulted this morning. Source is unclear at this point. Patient does complain of right knee pain. She recently underwent cardiac clearance with cardiology last week in anticipation of right knee replacement. Urine culture is pending. History viral panel does show parainfluenza. Blood pressure has been stable. Patient has been afebrile overnight. All of the above information was shared with the patient's . Patient has been states that he has had a talk with his multiple times in the past and she would never want dialysis or to be intubated. He states no matter what happens he will not consent to dialysis or intubation in accordance with patient's wishes. He also asked the chance of survival with the above comorbid conditions at this time. I discussed with him that IV steroids were recently started and we will have to isolate source of infection of bacteremia at this time. Patient does have evidence of ARDS and most likely has had an aspiration event based on her CT scan. She may also likely require dialysis going forward. He would be reasonable to wait at least 24 to 48 hours with antibiotics, steroids to see if there is any meaningful improvement or trend in the right direction. She does have a history of Alzheimer's dementia and patient's has concerns that she might not able to get back to her absolute baseline after this hospitalization. He is requested to pursue comfort measures however is willing to wait for 24 to 48 hours for trial of steroids to see if there is improvement. I have also offered him transfer to higher level of care for evaluation by digital content specialist and infectious disease specialist however he is not interested in transferring the patient at this time. He states his would not want aggressive measures. Already above conversation was done in presence of patient's nurse Yanet. I visited with the patient's twice this morning and talk to him in detail. I also discussed patient's care with patient's hatchery manager Dr. Love. At this point patient's CODE STATUS will be changed as per patient's 's wishes to allow natural . In the event of further respiratory decline we will not intubate. For now we will try oxy mask and if needed try high flow nasal cannula however patient repeatedly attempts to pull that off. We will repeat blood cultures today continue vancomycin, Zosyn. Continue Solu-Medrol 40 IV 3 times daily. Detailed skin exam was also conducted with no open sores. Discussed placing a PICC line with the patient's however he would like to defer that for now. Should we lose IV access going forward we may readdress that with him at a later time. Sputum culture, urine culture, blood cultures pending. Heparin drip was considered however VQ scan from this morning shows low probability of pulmonary embolism. ? Continue Coreg 6.25 twice daily, levothyroxine, Solu-Medrol 40 every 8 hours, Zosyn, vancomycin Nephrology has ordered albumin Normal saline at 30 cc/h. We will continue. Will continue to monitor in cardiac stepdown. Patient may have possibly aspirated. Will make n.p.o. at this time and have speech reevaluate. PDMP PDMP Reviewed: Not Reviewed Attestations Medical Necessity Statement*: mercedes aurues bacteremia ARDS Diagnoses ARDS (adult respiratory distress syndrome) J80 Hypoxia R09.02 JULIET (acute kidney injury) N17.9 Elevated troponin R79.89 Acute metabolic encephalopathy G93.41 Alzheimer disease G30.9; F02.80 Leukocytosis (leucocytosis) D72.829 Dehydration E86.0 Staphylococcus aureus bacteremia R78.81; B95.61 Simple chronic bronchitis J41.0 COPD type: chronic bronchitis Chronic bronchitis type: simple Osteoarthritis of right knee M17.11 Other hyperlipidemia E78.49 Hyperlipidemia type: other hyperlipidemia Chronic systolic congestive heart failure I50.22 Heart failure type: systolic Heart failure chronicity: chronic Dilated cardiomyopathy I42.0 Cardiomyopathy type: dilated
--- NOTE | 2024-09-07 11:46 | PC.OT ---
OT tx session; hold today due to patient status
--- NOTE | 2024-09-07 11:59 | CTR_ITS ---
PROCEDURE INFORMATION: Exam: CT Lumbar Spine Without Contrast Exam date and time: 09/07/2024 4:07 PM Age: 84 years old Clinical indication: Low back pain with staph bacteremia. Recent falls. ; Additional info: Low back pain staph aurues bacteremia TECHNIQUE: Imaging protocol: Computed tomography of the lumbar spine without contrast. Radiation optimization: All CT scans at this facility use at least one of these dose optimization techniques: automated exposure control; mA and/or kV adjustment per patient size (includes targeted exams where dose is matched to clinical indication); or iterative reconstruction. COMPARISON: US renal BI* [id number] 07/09/2024 13:38 RADIATION DOSE METRICS: Total DLP (mGy-cm): 705.2 FINDINGS: Bones/joints: No discrete linear areas of decreased density can be seen as might indicate the presence of an acute fracture. No distinct compressive changes of the vertebral bodies are appreciated either. Multilevel degenerative endplate changes with disc space loss and vacuum phenomena are seen throughout the T12 through S1 disc levels. Moderate convexity of the lumbar spine is directed to the right. Grade 1 anterolisthesis of L5/S1 is noted on the sagittal reconstructions appears to be due to bilateral pars defects and degenerative disc as well as facet changes. L1-L2: Gabw-jd-xdxlyzpt narrowing of the left lateral aspect of the canal due to degenerative disc and facet change appears to be present. Moderate degenerative narrowing of the left neural foramen is also observed. L2-L3: Moderate posterior spur/disc changes are seen as well as lbsw-cskfypr-ftdk-right degenerative facet findings particularly narrowing the left lateral aspect of the canal and left neural foramina. Encroachment of the left lateral recess is also noted here as perhaps best appreciated on image 45 of series 4 which may involve the left L3 root. L3-L4: Left posterolateral disc bulge with some spurring is seen mildly to moderately effacing the left anterolateral aspect of the thecal sac. This might involve the origin of the left L4 root in the lateral recess. L4-L5: Mild posterior disc convexity seen lateralizing slightly to the right with moderate bilateral degenerative facet and ligamentous resulting in mild canal narrowing. Mild right degenerative foraminal narrowing is present. changes L5-S1: Grade 1 anterolisthesis of L5/S1 due to bilateral pars defects and associated degenerative changes noted with moderate bilateral foraminal narrowing appreciated as well. Soft tissues: Hxao-dt-pzrseijv atherosclerotic calcifications of the great vessels of the abdomen and pelvis appear to be present. CT/CT lumbar spine wo con* [id number] IMPRESSION: 1. No acute osseous LS spine CT findings identified. 2. L5/S1 grade 1 anterolisthesis due to bilateral pars defects and associated degenerative disc and facet changes. 3. Moderate levorotatory scoliosis due to multilevel osteoarthritic/degenerative changes of the discs and facets with components of canal and foraminal stenoses, as described.
--- NOTE | 2024-09-07 11:59 | CTR_ITS ---
PROCEDURE INFORMATION: Exam: CT Left Lower Extremity Without Contrast, Knee Exam date and time: 09/07/2024 4:11 PM Age: 84 years old Clinical indication: Prior surgery; Surgery date: 6+ months; Surgery type: Left tka; C/O bilateral knee pain with staph bacteremia. Recent falls. ; Additional info: Patient's oxygenation has worsened from 2 L nasal cannula ye TECHNIQUE: Imaging protocol: CT of the left lower extremity without contrast was performed. Exam focused on the knee. Radiation optimization: All CT scans at this facility use at least one of these dose optimization techniques: automated exposure control; mA and/or kV adjustment per patient size (includes targeted exams where dose is matched to clinical indication); or iterative reconstruction. COMPARISON: CR XR knees AP WB w BI lmt ORTH 23/06/2024 10:27 RADIATION DOSE METRICS: Total DLP (mGy-cm): 324.9 FINDINGS: Limitations: Significant beam hardening metallic artifact with streaking obscures resolution the knee. Bones/joints: Postsurgical changes with knee joint prosthesis/arthroplasty unchanged in configuration with prior plain films of 06/23/2024. The components of the prosthesis appear to be appropriately positioned. Generalized decreased bone density consistent with osteopenia. Soft tissues: Normal. CT/CT knee LT wo con* [id number] IMPRESSION: 1. No acute osseous CT findings identified. 2. Knee arthroplasty with component parts appropriately articulated . 3. Osteopenia.
--- NOTE | 2024-09-07 11:59 | CTR_ITS ---
PROCEDURE INFORMATION: Exam: CT Right Lower Extremity Without Contrast, Knee Exam date and time: 09/07/2024 4:11 PM Age: 84 years old Clinical indication: C/O bilateral knee pain with staph bacteremia. Recent falls. ; Additional info: Knee pain, staph aureus bacteremia TECHNIQUE: Imaging protocol: CT of the right lower extremity without contrast was performed. Exam focused on the knee. Radiation optimization: All CT scans at this facility use at least one of these dose optimization techniques: automated exposure control; mA and/or kV adjustment per patient size (includes targeted exams where dose is matched to clinical indication); or iterative reconstruction. COMPARISON: CR XR knees AP WB w BI lmt ORTH 23/06/2024 10:27 RADIATION DOSE METRICS: Total DLP (mGy-cm): 350.9 FINDINGS: Bones/joints: Visualized bony cortical margins and articulations appear to be intact when allowing for some osteoarthritic/degenerative changes as evidenced by spurring and joint space narrowing. Moderate narrowing of the medial compartment is seen. No acute fracture or dislocation. Anteromedial small subcortical degenerative cyst-like changes are seen along tibial plateau. Trabecular architecture somewhat rarefied suggestive of osteopenia. Soft tissues: Moderate knee effusion with some scattered punctate calcifications. Mild calcifications are noted in the medial and lateral meniscal structures. CT/CT knee RT wo con* [id number] IMPRESSION: 1. No acute osseous CT findings identified. 2. Moderate osteoarthritic/degenerative changes involving the medial compartment and patellofemoral areas. 3. Meniscal chondrocalcinosis. 4. 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 5. Osteopenia.
--- NOTE | 2024-09-07 11:59 | CTR_ITS ---
PROCEDURE INFORMATION: Exam: CT Thoracic Spine Without Contrast Exam date and time: 09/07/2024 4:07 PM Age: 84 years old Clinical indication: Pain in thoracic spine; Prior surgery; Surgery date: 6+ months; Surgery type: Defibrillator; C/O upper back pain with staph bacteremia. Recent falls. ; Additional info: Staph aureus bacteremia TECHNIQUE: Imaging protocol: Computed tomography of the thoracic spine without contrast. Radiation optimization: All CT scans at this facility use at least one of these dose optimization techniques: automated exposure control; mA and/or kV adjustment per patient size (includes targeted exams where dose is matched to clinical indication); or iterative reconstruction. COMPARISON: CT chest wo con [id number] 07/09/2024 14:55 RADIATION DOSE METRICS: Total DLP (mGy-cm): 705.2 FINDINGS: Limitations: Patient motion artifact obscures some resolution on axial and reconstructed image sets. Bones/joints: Plate and screws seen over the visualized lower cervical region extending up to C7. No discrete linear areas of decreased density as might suggest a fracture. No CT identifiable compression fractures. Multilevel degenerative changes are seen with vacuum phenomena beginning in the mid to lower thoracic spine and upper lumbar areas. Grade 1 anterolisthesis of C7 with respect to T1 is noted to be present on the sagittal images. Bony bridging is suspected here. This configuration is unchanged in comparison to a sagittal reconstruction image set from a chest CT dated 01/25/2019. The only change clearly appreciated is apparent components of bony bridging across this disc level. Also observed is a strut graft at the C6 level.. Mild generalized kyphosis is seen along the thoracic column slightly greater in the thoracolumbar area. T1-T2: No significant disc bulge or herniation. No severe spinal canal stenosis. No significant neural foraminal narrowing. T2-T3: No significant disc bulge or herniation. No severe spinal canal stenosis. No significant neural foraminal narrowing. T3-T4: No significant disc bulge or herniation. No severe spinal canal stenosis. No significant neural foraminal narrowing. T4-T5: No significant disc bulge or herniation. No severe spinal canal stenosis. No significant neural foraminal narrowing. T5-T6: No significant disc bulge or herniation. No severe spinal canal stenosis. No significant neural foraminal narrowing. T6-T7: No significant disc bulge or herniation. No severe spinal canal stenosis. No significant neural foraminal narrowing. T7-T8: Mild posterior spur/disc is seen at this level with canal and foramina are relatively intact/patent. T8-T9: Mild posterior spur/disc is seen at this level with canal and neural foramina relatively intact/patent. T9-T10: No significant disc bulge or herniation. No severe spinal canal stenosis. No significant neural foraminal narrowing. T10-T11: Mild calcification is seen involving the bilateral ligamenta flavum minimally narrowing the canal. T11-T12: No significant disc bulge or herniation. No severe spinal canal stenosis. No significant neural foraminal narrowing. T12-L1: No significant disc bulge or herniation. No severe spinal canal stenosis. No significant neural foraminal narrowing. Lungs: Lower chest: Moderately prominent consolidative infiltrates are seen in the bilateral lower lobes and to a mild degree also in the anteroinferior right middle lobe. Mild bilateral pleural effusions are also noted. Chronic underlying emphysematous changes are suspected as well. Soft tissues: Unremarkable. Other findings: Left subclavicular pacer with transvenous leads. Various monitoring leads overlie the chest and abdomen. CT/CT thoracic spin wo con* [id number] IMPRESSION: 1. No acute osseous thoracic spine CT findings identified. 2. Mild osteoarthritic/degenerative changes seen in the lower thoracic region, as described. 3. Prominent postop changes involving the lower cervical region with grade 1 C7/T1 anterolisthesis similar in configuration to a 2019 CT study. 4. Right middle and bilateral lower lung consolidative infiltrates with mild pleural effusions. 5. Additional chronic changes, as described.
--- NOTE | 2024-09-07 14:10 | P.PN_ITS ---
<Statement entered by Joy Espinoza MD - 09/08/24 22:34> Patient was evaluated and cared for in conjunction with an advanced practice practitioner. I personally examined the patient and reviewed the chart and all pertinent data including imaging, telemetry, and laboratory results. I discussed the patient in detail with the advanced practice practitioner. Please see their note for complete H&P testing result and agreed upon plan of care for the patient. Subjective 2 Subjective: Patient is still confused today. She has staph bacteremia. Creatinine has increased to 2.9. At this time heart function is normal. She appears well compensated from heart failure standpoint but continues to have respiratory compromise. Vitals/I&O/Wt Last Vital Signs Temp 97.2 F L 09/07/24 12:00 Pulse 65 09/07/24 12:00 Resp 16 09/07/24 12:00 BP 112/60 09/07/24 12:00 Pulse Ox 92 09/07/24 12:00 O2 Del Method Oxymask 09/07/24 12:00 O2 Flow Rate 5 09/07/24 11:07 FiO2 47 09/07/24 07:37 09/06/24 09/07/24 09/07/24 22:59 06:59 14:59 Intake Total 432.5 / 2152.5 50 / 2202.5 10 10 Output Total 1200 / 1200 400 / 1600 Balance -767.5 / 952.5 -350 / 602.5 10 Weight last 48 hrs Weight 179 lb 3.2 oz Weight 186 lb Weight 182 lb 3.2 oz Weight 183 lb 5 oz Weight 210 lb Physical Exam 2 Narrative: General: No apparent distress, pleasantly confused HENMT: normoceophalic Muskuloskeletal: Full ROM Respiratory: Normal respiratory effort, bilateral lower lobes severely diminished anteriorly and posteriorly, no use of accessory muscles Cardio: No JVD, regular rate, regular rhythm, S1 S2 normal, no murmurs, peripheral pulses 2+ radial palpated bilaterally GI: Normal to inspection, nondistended Extremities: Full ROM, normal, normal capillary refill, no cyanosis, trace edema bilateral lower etremities Neuro: Alert to person Psych: Affect normal Skin: No rashes or lesions noted, no wounds Urinary Catheter Management: Saldana Latex Free: Cath Placed During This Visit: yes Reason for Continuing Indwelling Catheter: Accurate Measurement of Urinary Output in Critically Ill Patients Urinary Catheter Date of Insertion: 09/06/24 Urinary Catheter Time of Insertion: 13:00 Data 09/07/24 05:08 09/07/24 05:08 Micro: Microbiology 09/05/24 17:22 Blood Culture - Preliminary Blood Staphylococcus aureus 09/05/24 17:15 Blood Culture - Preliminary Blood NEGATIVE TO DATE A&P Assessment and plan (1) CHF (congestive heart failure): (2) Cardiomyopathy: (3) Pacemaker: (4) Elevated troponin: (5) JULIET (acute kidney injury): (6) Dehydration: (7) Infection due to parainfluenza virus 3: Plan Patient is requiring oxygen via oxime mask. Her vitals are stable. She has staph bacteremia. It was discussed with patient's that she most likely needs a higher level of care for respiratory compromise possible arts as well as pneumonia. At this time he may want to make her comfort care but was agreeable to see how she does the next couple days and make a decision. From a heart standpoint she appears well compensated PDMP PDMP Reviewed: Not Reviewed Attestations 2 Medical Necessity Statement*: Defer to primary Coding Level of Care Code Acute Code for Chg Fwd Diagnoses Chronic systolic congestive heart failure I50.22 Heart failure type: systolic Heart failure chronicity: chronic Dilated cardiomyopathy I42.0 Cardiomyopathy type: dilated Pacemaker Z95.0 Elevated troponin R79.89 JULIET (acute kidney injury) N17.9 Dehydration E86.0 Infection due to parainfluenza virus 3 B34.8
[2024-09-07] MEDS: ipratropium-albuterol 3 mL Neb INHALATION ×2 (14:27→20:33)
--- NOTE | 2024-09-07 16:10 | NM_ITS ---
WS: [id number] NUCLEAR MEDICINE LUNG PERFUSION CLINICAL INFORMATION: r/o PE TECHNIQUE: Perfusion lung scan with 5.5 mCi MAA FINDINGS: Somewhat patchy pulmonary perfusion in a symmetric fashion likely due to emphysema with decreased perfusion in the mid and upper lungs. No asymmetric or lobar perfusion defects to indicate pulmonary embolus NM/NM pul perfusion [id number] IMPRESSION: 1. Low probability for pulmonary embolus.
[2024-09-07 17:06] LABS: Vancomycin Trough 17.6 ug/mL (10-15)
[2024-09-08] VITALS (16 sets, daily range): BP systolic 128–149; BP diastolic 74–82; PULSE 69–84; RESP 16–24; TEMP 36.2–36.4; O2SAT 90–92
[2024-09-08] MEDS: methylPREDNISolone sod succ 40 mg/mL INJ IVP ×3 (01:49→18:24)
[2024-09-08] MEDS: ipratropium-albuterol 3 mL Neb INHALATION ×4 (03:13→21:27)
[2024-09-08 04:36] LABS: Vancomycin Random 15.3 ug/mL (20.0-40.0)
--- NOTE | 2024-09-08 05:49 | P.PN_ITS ---
Subjective 2 Subjective: on 10L o2 UOP piched up Medications: Reviewed: Yes Vitals/I&O/Wt Last Vital Signs Temp 97.3 F L 09/08/24 05:13 Pulse 69 09/08/24 05:13 Resp 17 09/08/24 05:13 BP 149/74 09/08/24 05:13 Pulse Ox 92 09/08/24 05:13 O2 Del Method Oxymask 09/08/24 05:13 O2 Flow Rate 7 09/08/24 05:13 FiO2 47 09/07/24 07:37 09/07/24 09/07/24 09/08/24 14:59 22:59 06:59 Intake Total 60 / 60 100 / 160 50 / 210 Output Total 2400 / 2400 Balance 60 / 60 -2300 / -2240 50 / -2190 Weight last 48 hrs Weight 81.284 kg Weight 84.368 kg Physical Exam 2 Narrative: sleeping , PERRLA S1-S2 regular rate and rhythm per report Lungs with decreased breath sounds and crackles per report Abdomen soft nontender per report No pedal edema Urinary Catheter Management: Saldana Latex Free: Cath Placed During This Visit: yes Reason for Continuing Indwelling Catheter: Accurate Measurement of Urinary Output in Critically Ill Patients Urinary Catheter Date of Insertion: 09/06/24 Urinary Catheter Time of Insertion: 13:00 Data 09/07/24 05:08 09/08/24 03:20 Micro: Microbiology 09/05/24 17:22 Blood Culture - Preliminary Blood Staphylococcus aureus A&P Assessment and plan (1) JULIET (acute kidney injury): 1. Acute kidney injury: JULIET likely from ATN in the setting of acute infection. Status post IV fluids - Will discuss Options of HD vs Conservative manageemnt with family - family opted for - NO dialysis , Renal US with no hydronephrosis -Ordered IV albumin and Will give as needed Lasix, 2. Acute respiratory failure: In the setting of possible pneumonia, antibiotics per primary team, V/Q scan pending 3. CHF with ejection fraction 45 to50 % , as needed Lasix 4. Metabolic acidosis: Mild, monitor 5. History of cardiomyopathy PDMP PDMP Reviewed: Not Reviewed Attestations 2 Medical Necessity Statement*: per [facility] Coding Level of Care Code Acute Code for [facility] Diagnoses JULIET (acute kidney injury) N17.9
[2024-09-08] MEDS: piperacillin-tazobactam 3.375 GM in sodium chloride 0.9% (plus) 50 ML IV ×2 (05:52→18:24)
--- NOTE | 2024-09-08 05:58 | XR_ITS ---
WS: [id number] XR chest 1V portable [id number] REASON FOR EXAM: follow up FINDINGS: Left chest cardiac device with trans left subclavian leads to the right atrium and right ventricle. Heart at the upper limits of normal in size. Central pulmonary venous congestion. There are opacities in both lower lung gaspar which were present on the previous examination of 09/05/2024. Possibly more prominent at this time due to hypoexpansion of the lungs and presumed areas of atelectasis. There is subtle blunting of the costophrenic angles which may indicate small pleural effusions. XR/XR chest 1V portable [id number] IMPRESSION: Abnormal chest possibly with progression. Congestive heart failure likely consi deration. Cannot readily exclude a bibasilar pneumonitis.
--- NOTE | 2024-09-08 06:11 | PM.PN ---
Subjective Subjective: seen this morning pt tried to pull her mask off overnight, otherwise slept ok cxr shows b/l pneumonia on 7L NC tells me she is in hospital today, knows her name and date of , mental status slightly better Vitals/I&O/Wt Last Vital Signs Temp 97.3 F L 09/08/24 05:13 Pulse 69 09/08/24 05:13 Resp 17 09/08/24 05:13 BP 149/74 09/08/24 05:13 Pulse Ox 92 09/08/24 05:13 O2 Del Method Oxymask 09/08/24 05:13 O2 Flow Rate 7 09/08/24 05:13 FiO2 47 09/07/24 07:37 09/07/24 09/07/24 09/08/24 14:59 22:59 06:59 Intake Total 60 / 60 100 / 160 50 / 210 Output Total 2400 / 2400 Balance 60 / 60 -2300 / -2240 50 / -2190 Weight last 48 hrs Weight 81.284 kg Physical Exam Narrative: General: Alert oriented x2-3, patient seen laying in bed at this time on 7L NC HEENT: Normocephalic, atraumatic, EOMI, Cardio: Paced rhythm, normal S1-S2, Respiratory: ronchi bilaterally at bases GI: Abdomen soft, nontender, nondistended, bowel sounds + Extremities: Trace to 1+ edema bilateral lower extremities Skin: No skin breakdown noted. Urinary Catheter Management: Saldana Latex Free: Cath Placed During This Visit: yes Reason for Continuing Indwelling Catheter: Accurate Measurement of Urinary Output in Critically Ill Patients Urinary Catheter Date of Insertion: 09/06/24 Urinary Catheter Time of Insertion: 13:00 Data 09/07/24 05:08 09/08/24 03:20 Micro: Microbiology 09/05/24 17:22 Blood Culture - Preliminary Blood Staphylococcus aureus A&P Assessment and plan (1) ARDS (adult respiratory distress syndrome): (2) Hypoxia: Likely multifactorial apparently per official report patient does not have pneumonia - Continue to monitor closely empiric anticoagulant till patient renal failure resolves for a scan if need be to rule out PE. (3) JULIET (acute kidney injury): Patient is with worsening JULIET than prior - Continue to treat and keep medication renal friendly (4) Elevated troponin: Troponin elevation with no chest pain nothing much going on with this patient except for metabolic encephalopathy, no chest pains it is most likely due to renal failure lack of good elimination of troponin. (5) Acute metabolic encephalopathy: Metabolic encephalopathy due to renal failure must continue to treat and optimize (6) Alzheimer disease: (7) Leukocytosis (leucocytosis): (8) Dehydration: (9) Staphylococcus aureus bacteremia: (10) COPD (chronic obstructive pulmonary disease): (11) Osteoarthritis of right knee: (12) Hyperlipidemia: (13) CHF (congestive heart failure): (14) Cardiomyopathy: Plan 09/07/2024 Patient's oxygenation has worsened from 2 L nasal cannula yesterday afternoon up to 45 L high flow this morning. CT chest reviewed which shows large area of atelectasis versus basilar pneumonitis. It is suggestive of ARDS at this point. Creatinine worsening at 2.9 today. Nephrology recommending possible dialysis in next 24 to 48 hours. Blood cultures 1 out of 3 bottles are also positive for Staph aureus. This resulted this morning. Source is unclear at this point. Patient does complain of right knee pain. She recently underwent cardiac clearance with cardiology last week in anticipation of right knee replacement. Urine culture is pending. History viral panel does show parainfluenza. Blood pressure has been stable. Patient has been afebrile overnight. All of the above information was shared with the patient's . Patient has been states that he has had a talk with his multiple times in the past and she would never want dialysis or to be intubated. He states no matter what happens he will not consent to dialysis or intubation in accordance with patient's wishes. He also asked the chance of survival with the above comorbid conditions at this time. I discussed with him that IV steroids were recently started and we will have to isolate source of infection of bacteremia at this time. Patient does have evidence of ARDS and most likely has had an aspiration event based on her CT scan. She may also likely require dialysis going forward. He would be reasonable to wait at least 24 to 48 hours with antibiotics, steroids to see if there is any meaningful improvement or trend in the right direction. She does have a history of Alzheimer's dementia and patient's has concerns that she might not able to get back to her absolute baseline after this hospitalization. He is requested to pursue comfort measures however is willing to wait for 24 to 48 hours for trial of steroids to see if there is improvement. I have also offered him transfer to higher level of care for evaluation by coverstitch elastic attacher and infectious disease specialist however he is not interested in transferring the patient at this time. He states his would not want aggressive measures. Already above conversation was done in presence of patient's nurse Yanet. I visited with the patient's twice this morning and talk to him in detail. I also discussed patient's care with patient's historian research assistant Dr. Love. At this point patient's CODE STATUS will be changed as per patient's 's wishes to allow natural . In the event of further respiratory decline we will not intubate. For now we will try oxy mask and if needed try high flow nasal cannula however patient repeatedly attempts to pull that off. We will repeat blood cultures today continue vancomycin, Zosyn. Continue Solu-Medrol 40 IV 3 times daily. Detailed skin exam was also conducted with no open sores. Discussed placing a PICC line with the patient's however he would like to defer that for now. Should we lose IV access going forward we may readdress that with him at a later time. Sputum culture, urine culture, blood cultures pending. Heparin drip was considered however VQ scan from this morning shows low probability of pulmonary embolism. ? Continue Coreg 6.25 twice daily, levothyroxine, Solu-Medrol 40 every 8 hours, Zosyn, vancomycin Nephrology has ordered albumin Normal saline at 30 cc/h. We will continue. Will continue to monitor in cardiac stepdown. Patient may have possibly aspirated. Will make n.p.o. at this time and have speech reevaluate. 09/08/2024 slightly improved mentation today blood culture repeated labs pending from this morning continue antibiotics and steroids will update patient's once he is here continue to hold lasix cr 3.0 today, worsening will discuss with nephrology right knee has moderate effusion, will consult orthopedics ct lumbar spine, knee, head all reviewed, no indicated abscess staph may be from pneumonia source PDMP PDMP Reviewed: Not Reviewed Attestations Medical Necessity Statement*: staph aurues bacteremia ARDS/b/l pneumonia Diagnoses ARDS (adult respiratory distress syndrome) J80 Hypoxia R09.02 JULIET (acute kidney injury) N17.9 Elevated troponin R79.89 Acute metabolic encephalopathy G93.41 Alzheimer disease G30.9; F02.80 Leukocytosis (leucocytosis) D72.829 Dehydration E86.0 Staphylococcus aureus bacteremia R78.81; B95.61 Simple chronic bronchitis J41.0 COPD type: chronic bronchitis Chronic bronchitis type: simple Osteoarthritis of right knee M17.11 Other hyperlipidemia E78.49 Hyperlipidemia type: other hyperlipidemia Chronic systolic congestive heart failure I50.22 Heart failure type: systolic Heart failure chronicity: chronic Dilated cardiomyopathy I42.0 Cardiomyopathy type: dilated
[2024-09-08 06:25] LABS: Blood Urea Nitrogen 51 mg/dL (8-23); Calcium 8.6 mg/dL (8.5-10.5); Carbon Dioxide 23 mmol/L (22-29); Chloride 104 mmol/L (98-107); Creatinine Clr Calc Pharmacy 15.3452; Glucose 124 mg/dL (65-115); Osmolality Calculated 313 mOsm/kg (285-295); Sodium 144 mmol/L (136-145)
[2024-09-08] MEDS: FUROsemide 10 mg/mL SDV 4mL 40 MG IVP ×2 (06:35→09:22)
[2024-09-08] MEDS: morphine 4 mg/mL SDV 1 mL IVP (06:35)
[2024-09-08 06:38] LABS: Anion Gap 20.1 (5-19); Potassium 3.1 mmol/L (3.5-5.1)
[2024-09-08] MEDS: budesonide 0.5 mg/2 mL Neb INHALATION ×2 (07:35→21:27)
[2024-09-08] MEDS: potassium chloride ER 20 mEq Tablet PO (09:14)
[2024-09-08] MEDS: heparin 5,000 unit/mL INJ 1 mL 5000 UNIT SUBCUT ×2 (09:15→20:16)
--- NOTE | 2024-09-08 09:51 | PC.SLP ---
Spoke with nursing prior to entering pt room. Nursing reported difficulty with following directives/putting lips around spoon. and sitter in room. Pt asleep with oxygen mask on. Therapist provided education on how pt is not appropriate at this time for oral intake. Spoke with about recommendation.
--- NOTE | 2024-09-08 11:44 | PC.SOCIAL ---
IMM Updated Updated pt's on IMM. No questions voiced. Provided pt a copy. Initialed, dated, & timed a copy & placed in chart.
--- NOTE | 2024-09-08 13:25 | P.PN_ITS ---
<Statement entered by Joy Espinoza MD - 09/08/24 22:25> Patient was evaluated and cared for in conjunction with an advanced practice practitioner. I personally examined the patient and reviewed the chart and all pertinent data including imaging, telemetry, and laboratory results. I discussed the patient in detail with the advanced practice practitioner. Please see their note for complete H&P testing result and agreed upon plan of care for the patient. Subjective 2 Subjective: Patient doing much better today. Was negative to 200 L over 24 hours. Patient's oxygen saturation 92% on oxime mask. Creatinine has had a slight increase at 3.1. Vitals/I&O/Wt Last Vital Signs Temp 97.2 F L 09/08/24 11:44 Pulse 78 09/08/24 11:44 Resp 18 09/08/24 11:44 BP 143/79 09/08/24 11:44 Pulse Ox 90 09/08/24 11:44 O2 Del Method Oxymask 09/08/24 11:44 O2 Flow Rate 8 09/08/24 07:45 FiO2 47 09/07/24 07:37 09/07/24 09/08/24 09/08/24 22:59 06:59 14:59 Intake Total 100 / 160 50 / 210 50 / 50 Output Total 2400 / 2400 1150 / 1150 Balance -2300 / -2240 50 / -2190 -1100 / -1100 Weight last 48 hrs Weight 181 lb 2 oz Weight 179 lb 3.2 oz Physical Exam 2 Narrative: General: No apparent distress, pleasantly confused HENMT: normoceophalic Muskuloskeletal: Full ROM Respiratory: Normal respiratory effort, bilateral lower lobes severely diminished anteriorly and posteriorly, no use of accessory muscles Cardio: No JVD, regular rate, regular rhythm, S1 S2 normal, no murmurs, peripheral pulses 2+ radial palpated bilaterally GI: Normal to inspection, nondistended Extremities: Full ROM, normal, normal capillary refill, no cyanosis, trace edema bilateral lower etremities Neuro: Alert to person Psych: Affect normal Skin: No rashes or lesions noted, no wounds Urinary Catheter Management: Saldana Latex Free: Cath Placed During This Visit: yes Reason for Continuing Indwelling Catheter: Accurate Measurement of Urinary Output in Critically Ill Patients Urinary Catheter Date of Insertion: 09/06/24 Urinary Catheter Time of Insertion: 13:00 Data 09/07/24 05:08 09/08/24 03:20 Micro: Microbiology 09/06/24 18:17 Urine Culture - Preliminary Urine Catheterized 09/08/24 06:29 Blood Culture - Preliminary Blood SPECIMEN COLLECTED 09/08/24 06:27 Blood Culture - Preliminary Blood SPECIMEN COLLECTED 09/05/24 17:22 Blood Culture - Preliminary Blood Staphylococcus aureus A&P Assessment and plan (1) CHF (congestive heart failure): (2) Cardiomyopathy: (3) Pacemaker: (4) Elevated troponin: (5) JULIET (acute kidney injury): (6) Dehydration: (7) Infection due to parainfluenza virus 3: Plan Patient is requiring oxygen via oxime mask. Her vitals are stable. She has staph bacteremia. From a heart standpoint she appears well compensated. Continue agressive respiratory care per hospitalist team. PDMP PDMP Reviewed: Not Reviewed Attestations 2 Medical Necessity Statement*: Deferred to primary Coding Level of Care Code Acute Code for [facility] Diagnoses Chronic systolic congestive heart failure I50.22 Heart failure type: systolic Heart failure chronicity: chronic Dilated cardiomyopathy I42.0 Cardiomyopathy type: dilated Pacemaker Z95.0 Elevated troponin R79.89 JULIET (acute kidney injury) N17.9 Dehydration E86.0 Infection due to parainfluenza virus 3 B34.8
[2024-09-08] MEDS: morphine 4 mg/mL SDV 1 mL 2 MG IVP ×2 (14:10→20:09)
--- NOTE | 2024-09-08 15:46 | PC.NURSE ---
Verbal orders: Morphine 2mg PRN q8h
[2024-09-08] MEDS: sodium chloride 0.9% 1,000 ML 30 ML IV (20:33)
--- NOTE | 2024-09-08 20:50 | CTR_ITS ---
PROCEDURE INFORMATION: Exam: CT Head Without Contrast Exam date and time: 09/08/2024 10:31 PM Age: 84 years old Clinical indication: Visual disturbance; New onset of anisocoria. Patient confused upon exam. ; Additional info: Unequal pupils TECHNIQUE: Imaging protocol: Computed tomography of the head without contrast. Radiation optimization: All CT scans at this facility use at least one of these dose optimization techniques: automated exposure control; mA and/or kV adjustment per patient size (includes targeted exams where dose is matched to clinical indication); or iterative reconstruction. COMPARISON: No relevant prior studies available. RADIATION DOSE METRICS: Total DLP (mGy-cm): 1076.98 FINDINGS: Brain: Cerebral cortical volume loss. Negative for intracranial mass. Negative for midline shift the brain. Frankel matter and white matter interfaces are preserved.There is moderate diffuse heterogeneity of the white matter attenuation, consistent with chronic white matter ischemic changes. Negative for acute intracranial hemorrhage. Cerebral ventricles: No ventriculomegaly. Paranasal sinuses: Visualized sinuses are unremarkable. No fluid levels. Mastoid air cells: Visualized mastoid air cells are well aerated. Bones: Unremarkable. No acute fracture. Soft tissues: Unremarkable. CT/CT head wo con* [id number] IMPRESSION: Negative for acute intracranial pathology.
[2024-09-08] MEDS: LORazepam 2 mg/mL INJ 1 mL 0.5 MG IVP (21:26)
[2024-09-09] VITALS (11 sets, daily range): BP systolic 153–164; BP diastolic 87–97; PULSE 72–86; RESP 16–24; TEMP 36.7–36.8; O2SAT 80–99
[2024-09-09] MEDS: methylPREDNISolone sod succ 40 mg/mL INJ IVP ×2 (01:56→08:31)
[2024-09-09] MEDS: ipratropium-albuterol 3 mL Neb INHALATION ×2 (02:40→08:50)
[2024-09-09] MEDS: morphine 4 mg/mL SDV 1 mL 2 MG IVP ×3 (03:16→11:52)
--- NOTE | 2024-09-09 03:27 | PC.NURSE ---
2026- Patient keeps taking off oxymask, pulling at IV, and attempting to grab FC. Patient is hard to redirect and reorient at the moment. THis nurse also noticed her left pupil is larger than her right. The left pupil is also sluggish to react compared to the right. Attempted to message and then called Dr. Thomas regard unequal pupils and getting something to help with agitation. Received orders for 0.5 mg ativan once and stat Head CT. Around [address] Thomas that patient went to CT and are waiting on results for CT. At [address] notified MD about the CT head results. Clarifying if any other tests need to be ran since patient still has unequal pupils. Awaiting response.
[2024-09-09] MEDS: piperacillin-tazobactam 3.375 GM in sodium chloride 0.9% (plus) 50 ML IV (05:12)
[2024-09-09 05:13] LABS: Basophils # 0.1 10^3/uL (0.0-0.1); Basophils % 0.3 %; Hematocrit 49.3 % (36-47); Lymphocytes # 0.6 10^3/uL (0.8-4.8); Lymphocytes % 3.1 %; Mean Corpuscular Hemoglobin 30.4 pg (27-33); Mean Corpuscular Volume 94.8 fl (85-98); Mean Platelet Volume 12.6 fL (7.4-10.4); Monocytes # 0.8 10^3/uL (0.2-0.9); Neutrophils # 17.67 10^3/uL (1.8-7.7); Neutrophils % 91.5 %; Nucleated Red Blood Cells % 0 %; Platelet Count 120 10^3/cmm (157-399); Red Cell Distribution Width 14.4 % (12.1-15.1); White Blood Count 19.32 10^3/uL (3.29-11.43)
--- NOTE | 2024-09-09 05:33 | PC.NURSE ---
Notified Dr. Thomas that patient is requiring 15L hi-glow NC and is currently getting switched to [id number] NC. Patient does have +2 pitting edema in BLE. This nurse paused fluids. Received orders to trial Bipap and notify MD if patient is unable to tolerate.
[2024-09-09 05:44] LABS: Alanine Aminotransferase 11 U/L (0-33); Albumin Level 3.2 g/dL (3.5-5.2); Alkaline Phosphatase 44 U/L (35-105); Aspartate Amino Transferase 19 U/L (0-32); Blood Urea Nitrogen 58 mg/dL (8-23); Calcium 9.4 mg/dL (8.5-10.5); Carbon Dioxide 28 mmol/L (22-29); Chloride 106 mmol/L (98-107); Creatinine Clr Calc Pharmacy 14.9404; Globulin 4.1 g/dL (1.3-4.6); Glucose 169 mg/dL (65-115); Magnesium 3.1 mg/dL (1.7-2.3); Osmolality Calculated 328 mOsm/kg (285-295); Sodium 149 mmol/L (136-145); Total Bilirubin 0.8 mg/dL (0.15-1.2); Total Protein 7.3 g/dL (6.6-8.7)
[2024-09-09 06:08] LABS: Anion Gap 17.5 (5-19); Potassium 2.5 mmol/L (3.5-5.1)
--- NOTE | 2024-09-09 06:12 | PC.NURSE ---
Notified Dr. Thomas that patient is not going to tolerate bipap and is on heated hi-flow. Patient is aggitated and continues to pull of mask. Requesting something to help with agitation, no new orders received as medications will cause respiratory depression.
[2024-09-09] MEDS: lidocaine 1% 5 ML in potassium chloride premix 100 ML 26.25 ML IV (07:17)
[2024-09-09] MEDS: heparin 5,000 unit/mL INJ 1 mL 5000 UNIT SUBCUT (08:29)
[2024-09-09] MEDS: budesonide 0.5 mg/2 mL Neb INHALATION (08:50)
--- NOTE | 2024-09-09 09:23 | P.PN_ITS ---
Subjective 2 Subjective: on 15 L o2 Medications: Reviewed: Yes Vitals/I&O/Wt Last Vital Signs Temp 98.2 F 09/09/24 07:41 Pulse 86 09/09/24 08:00 Resp 22 H 09/09/24 08:00 BP 164/93 09/09/24 07:41 Pulse Ox 90 09/09/24 08:00 O2 Del Method Aerosol Mask 09/09/24 08:00 O2 Flow Rate 10 09/09/24 08:00 FiO2 70 09/09/24 05:45 09/08/24 09/09/24 09/09/24 22:59 06:59 14:59 Intake Total 1000 / 1050 50 / 1100 Output Total 1400 / 2550 700 / 3250 Balance -400 / -1500 -650 / -2150 Weight last 48 hrs Weight 82.157 kg Physical Exam 2 Narrative: sleeping ,on high flow O2 PERRLA S1-S2 regular rate and rhythm per report Lungs with decreased breath sounds and crackles per report Abdomen soft nontender per report No pedal edema Urinary Catheter Management: Saldana Latex Free: Cath Placed During This Visit: yes Reason for Continuing Indwelling Catheter: Accurate Measurement of Urinary Output in Critically Ill Patients Urinary Catheter Date of Insertion: 09/06/24 Urinary Catheter Time of Insertion: 13:00 Data 09/09/24 04:36 09/09/24 04:36 Micro: Microbiology 09/08/24 06:29 Blood Culture - Preliminary Blood NEGATIVE TO DATE 09/08/24 06:27 Blood Culture - Preliminary Blood NEGATIVE TO DATE 09/06/24 18:17 Urine Culture - Preliminary Urine Catheterized A&P Assessment and plan (1) JULIET (acute kidney injury): 1. Acute kidney injury: JULIET likely from ATN in the setting of acute infection. Status post IV fluids -discussed Options of HD vs Conservative manageement with family - family opted for - NO dialysis , Renal US with no hydronephrosis -on IV albumin and Will give as needed Lasix, - will give lasix after K repleted 2. Acute respiratory failure: In the setting of possible pneumonia, antibiotics per primary team, 3. CHF with ejection fraction 45 to50 % , as needed Lasix 4. Metabolic acidosis: Mild, monitor 5. History of cardiomyopathy 6. Hypokalemia :replete discussed with pt @ bedside PDMP PDMP Reviewed: Not Reviewed Attestations 2 Medical Necessity Statement*: per mediicne Coding Level of Care Code Acute Code for [facility] Diagnoses JULIET (acute kidney injury) N17.9
--- NOTE | 2024-09-09 13:25 | P.PN_ITS ---
Subjective 2 Subjective: Overnight patient had a rough night. She repeatedly removed her mask and desaturated down to low 80s. She was given morphine. Night hospitalist was also called. She met intubation criteria however that was deferred secondary to patient's wishes of being DNR/DNI as per family. White count 19,000, potassium 2.5, creatinine 3.2. Patient recently given another dose of morphine. Sitting up in bed with at bedside. Breathing 12 L oxy mask saturating 90%. Vitals/I&O/Wt Last Vital Signs Temp 98.2 F 09/09/24 07:41 Pulse 86 09/09/24 08:00 Resp 22 H 09/09/24 08:00 BP 164/93 09/09/24 07:41 Pulse Ox 90 09/09/24 08:00 O2 Del Method Aerosol Mask 09/09/24 08:00 O2 Flow Rate 10 09/09/24 08:00 FiO2 70 09/09/24 05:45 09/08/24 09/09/24 09/09/24 22:59 06:59 14:59 Intake Total 1000 / 1050 50 / 1100 155 / 155 Output Total 1400 / 2550 700 / 3250 Balance -400 / -1500 -650 / -2150 155 / 155 Weight last 48 hrs Weight 82.157 kg Physical Exam 2 Narrative: General: Alert oriented x2-3, patient seen laying in bed at this time on 12L NC HEENT: Normocephalic, atraumatic, EOMI, Cardio: Paced rhythm, normal S1-S2, Respiratory: ronchi bilaterally at bases GI: Abdomen soft, nontender, nondistended, bowel sounds + Extremities: Trace to 1+ edema bilateral lower extremities Skin: No skin breakdown noted. Urinary Catheter Management: Saldana Latex Free: Cath Placed During This Visit: yes Reason for Continuing Indwelling Catheter: Accurate Measurement of Urinary Output in Critically Ill Patients Urinary Catheter Date of Insertion: 09/06/24 Urinary Catheter Time of Insertion: 13:00 Data 09/09/24 04:36 09/09/24 04:36 Micro: Microbiology 09/05/24 17:22 Blood Culture - Preliminary Blood Staphylococcus aureus 09/06/24 18:17 Urine Culture - Final Urine Catheterized 09/08/24 06:29 Blood Culture - Preliminary Blood NEGATIVE TO DATE 09/08/24 06:27 Blood Culture - Preliminary Blood NEGATIVE TO DATE A&P Assessment and plan (1) ARDS (adult respiratory distress syndrome): (2) Hypoxia: Likely multifactorial apparently per official report patient does not have pneumonia - Continue to monitor closely empiric anticoagulant till patient renal failure resolves for a scan if need be to rule out PE. (3) JULIET (acute kidney injury): Patient is with worsening JULIET than prior - Continue to treat and keep medication renal friendly (4) Elevated troponin: Troponin elevation with no chest pain nothing much going on with this patient except for metabolic encephalopathy, no chest pains it is most likely due to renal failure lack of good elimination of troponin. (5) Acute metabolic encephalopathy: Metabolic encephalopathy due to renal failure must continue to treat and optimize (6) Alzheimer disease: (7) Leukocytosis (leucocytosis): (8) Dehydration: (9) Staphylococcus aureus bacteremia: (10) COPD (chronic obstructive pulmonary disease): (11) Osteoarthritis of right knee: (12) Hyperlipidemia: (13) CHF (congestive heart failure): (14) Cardiomyopathy: (15) Goals of care, counseling/discussion: Plan 09/07/2024 Patient's oxygenation has worsened from 2 L nasal cannula yesterday afternoon up to 45 L high flow this morning. CT chest reviewed which shows large area of atelectasis versus basilar pneumonitis. It is suggestive of ARDS at this point. Creatinine worsening at 2.9 today. Nephrology recommending possible dialysis in next 24 to 48 hours. Blood cultures 1 out of 3 bottles are also positive for Staph aureus. This resulted this morning. Source is unclear at this point. Patient does complain of right knee pain. She recently underwent cardiac clearance with cardiology last week in anticipation of right knee replacement. Urine culture is pending. History viral panel does show parainfluenza. Blood pressure has been stable. Patient has been afebrile overnight. All of the above information was shared with the patient's . Patient has been states that he has had a talk with his multiple times in the past and she would never want dialysis or to be intubated. He states no matter what happens he will not consent to dialysis or intubation in accordance with patient's wishes. He also asked the chance of survival with the above comorbid conditions at this time. I discussed with him that IV steroids were recently started and we will have to isolate source of infection of bacteremia at this time. Patient does have evidence of ARDS and most likely has had an aspiration event based on her CT scan. She may also likely require dialysis going forward. He would be reasonable to wait at least 24 to 48 hours with antibiotics, steroids to see if there is any meaningful improvement or trend in the right direction. She does have a history of Alzheimer's dementia and patient's has concerns that she might not able to get back to her absolute baseline after this hospitalization. He is requested to pursue comfort measures however is willing to wait for 24 to 48 hours for trial of steroids to see if there is improvement. I have also offered him transfer to higher level of care for evaluation by seater assembler and infectious disease specialist however he is not interested in transferring the patient at this time. He states his would not want aggressive measures. Already above conversation was done in presence of patient's nurse Yanet. I visited with the patient's twice this morning and talk to him in detail. I also discussed patient's care with patient's show girl Dr. Love. At this point patient's CODE STATUS will be changed as per patient's 's wishes to allow natural . In the event of further respiratory decline we will not intubate. For now we will try oxy mask and if needed try high flow nasal cannula however patient repeatedly attempts to pull that off. We will repeat blood cultures today continue vancomycin, Zosyn. Continue Solu-Medrol 40 IV 3 times daily. Detailed skin exam was also conducted with no open sores. Discussed placing a PICC line with the patient's however he would like to defer that for now. Should we lose IV access going forward we may readdress that with him at a later time. Sputum culture, urine culture, blood cultures pending. Heparin drip was considered however VQ scan from this morning shows low probability of pulmonary embolism. ? Continue Coreg 6.25 twice daily, levothyroxine, Solu-Medrol 40 every 8 hours, Zosyn, vancomycin Nephrology has ordered albumin Normal saline at 30 cc/h. We will continue. Will continue to monitor in cardiac stepdown. Patient may have possibly aspirated. Will make n.p.o. at this time and have speech reevaluate. 09/08/2024 slightly improved mentation today blood culture repeated labs pending from this morning continue antibiotics and steroids will update patient's once he is here continue to hold lasix cr 3.0 today, worsening will discuss with nephrology right knee has moderate effusion, will consult orthopedics ct lumbar spine, knee, head all reviewed, no indicated abscess staph may be from pneumonia source 09/09/2024 I have had numerous family meetings with patient's daily where discussion has taken place more than 2 times per day. Even this morning I spoke with twice in 2 different occasions. We have discussed Ms. Reyna's care in detail. Creatinine is a worsening and nephrology has indicated patient likely may need dialysis in the next 24 hours. Respiratory status has worsened and now requiring 12 L via oxime mask. Patient has been on steroids and antibiotics since admission for pneumonia/ARDS/respiratory failure, Staph aureus bacteremia.. Patient's states that as per patient's wishes she would not have wanted dialysis or be intubated or want prolong aggressive life-saving measures. I have suggested a WENDI to evaluate for vegetation since patient has Staph aureus bacteremia or an arthrocentesis for right knee effusion to evaluate for source of Staph aureus. I have also discussed with patient's regarding transfer to higher level care facility for pulmonology consultation. Patient's is not interested in aggressive invasive testing above. He states that his and he has talked about this multiple times and he he would like to keep her comfortable at this time. He has talked with their children as well and he wishes to keep her comfortable and pursue comfort measures. He understands that antibiotics IV fluids, further testing, will not be taking place. He would also like for us to take off the oxygen mask as he states she is uncomfortable and that that is bothering her at this time. She does not like to keep the mask on. We had a long discussion regarding patient's recovery probably needing rehab and likely 6 weeks of IV antibiotics secondary to staph aureus bacteremia. She also has been experiencing dysphagia and is a high respiration risk and likely aspirated prior to coming to the hospital. He states she would never have wanted a feeding tube. I discussed with him regarding PPN temporarily to reevaluate for swallowing function improvement later however he is not interested in that at this time. He states that recently she was starting to be more forgetful and Alzheimer's dementia was worsening and she had progressive decline. He states at times she would not even recognize him or know where she is. After multiple discussions with patient's I do agree that patient's quality of life will be poor even if she survives this hospitalization and would likely require prolonged rehab and need a long time for recovery. We will go ahead and transition patient to comfort measures as per patient's 's wishes. We will stop oxygen IV fluids, further blood draws. I have discussed with him to place patient on Ativan and morphine to keep her comfortable to which he agrees to. He has requested for ordnance keeper to give her her last rights. I have notified nursing staff to call the transportation aide. Lastly patient will be kept n.p.o. as per patient's 's wishes secondary to risk of aspiration. Transition to comfort care. PDMP PDMP Reviewed: Not Reviewed Attestations 2 Medical Necessity Statement*: comfort measures only. Diagnoses ARDS (adult respiratory distress syndrome) J80 Hypoxia R09.02 JULIET (acute kidney injury) N17.9 Elevated troponin R79.89 Acute metabolic encephalopathy G93.41 Alzheimer disease G30.9; F02.80 Leukocytosis (leucocytosis) D72.829 Dehydration E86.0 Staphylococcus aureus bacteremia R78.81; B95.61 Simple chronic bronchitis J41.0 COPD type: chronic bronchitis Chronic bronchitis type: simple Osteoarthritis of right knee M17.11 Other hyperlipidemia E78.49 Hyperlipidemia type: other hyperlipidemia Chronic systolic congestive heart failure I50.22 Heart failure type: systolic Heart failure chronicity: chronic Dilated cardiomyopathy I42.0 Cardiomyopathy type: dilated Goals of care, counseling/discussion Z71.89
[2024-09-09] MEDS: morphine 4 mg/mL SDV 1 mL IVP ×2 (13:54→20:55)
[2024-09-09] MEDS: LORazepam 2 mg/mL INJ 1 mL IVP (14:11)
--- NOTE | 2024-09-09 15:37 | PC.RESP ---
Family has decided that patient is to be made comfortable. Nursing to call for needs.
--- NOTE | 2024-09-09 19:50 | P.PN_ITS ---
Subjective 2 Subjective: Patient since last night has deteriorated her condition including requiring more oxygen however orientation and awareness remained stable whenever I tried to talk she had recognized me but she is irritable Medications: Reviewed: Yes Vitals/I&O/Wt Last Vital Signs Temp 98.1 F 09/09/24 12:00 Pulse 85 09/09/24 12:00 Resp 20 H 09/09/24 13:54 BP 157/97 09/09/24 12:00 Pulse Ox 99 09/09/24 12:00 O2 Del Method Oxymask 09/09/24 12:00 O2 Flow Rate 10 09/09/24 08:00 FiO2 70 09/09/24 05:45 09/09/24 09/09/24 09/09/24 06:59 14:59 22:59 Intake Total 50 / 1100 155 / 155 Output Total 700 / 3250 Balance -650 / -2150 155 / 155 Weight last 48 hrs Weight 181 lb 2 oz Physical Exam 2 Const: OTHER: GENERAL: Patient is alert, awake and oriented x2. HEART: Regular S1 and S2. No murmur, rub or gallop. LUNGS: Clear to auscultate bilaterally. CENTRAL NERVOUS SYSTEM: Grossly nonfocal. EXTREMITIES: Lower extremities with out edema bilaterally. Urinary Catheter Management: Saldana Latex Free: Cath Placed During This Visit: yes Reason for Continuing Indwelling Catheter: Accurate Measurement of Urinary Output in Critically Ill Patients Urinary Catheter Date of Insertion: 09/06/24 Urinary Catheter Time of Insertion: 13:00 Data 09/09/24 04:36 09/09/24 04:36 Micro: Microbiology 09/05/24 17:22 Blood Culture - Preliminary Blood Staphylococcus aureus 09/06/24 18:17 Urine Culture - Final Urine Catheterized 09/08/24 06:29 Blood Culture - Preliminary Blood NEGATIVE TO DATE 09/08/24 06:27 Blood Culture - Preliminary Blood NEGATIVE TO DATE A&P Assessment and plan (1) CHF (congestive heart failure): (2) Cardiomyopathy: (3) Pacemaker: (4) Elevated troponin: (5) JULIET (acute kidney injury): (6) Dehydration: (7) Infection due to parainfluenza virus 3: Plan Since yesterday patient is deteriorating Family and patient wishes are not to be intubated and treated with medicine only Continue current management Patient is on comfort care PDMP PDMP Reviewed: Not Reviewed Attestations 2 Medical Necessity Statement*: As suggested by medicine team Coding Level of Care Code Acute Code for Chg Fwd Diagnoses Chronic systolic congestive heart failure I50.22 Heart failure type: systolic Heart failure chronicity: chronic Dilated cardiomyopathy I42.0 Cardiomyopathy type: dilated Pacemaker Z95.0 Elevated troponin R79.89 JULIET (acute kidney injury) N17.9 Dehydration E86.0 Infection due to parainfluenza virus 3 B34.8
--- NOTE | 2024-09-09 21:04 | PC.NURSE ---
Some items of assessment are deferred due to patient comfort care.
[2024-09-10] MEDS: atropine 1% op soln 2 mL Btl 3 DROP SUBLINGUAL ×2 (04:31→23:07)
[2024-09-10] MEDS: morphine 4 mg/mL SDV 1 mL IVP ×4 (04:32→22:42)
[2024-09-10 06:24] VITALS: RESP 14
[2024-09-10] MEDS: LORazepam 2 mg/mL INJ 1 mL IVP ×2 (06:39→10:36)
--- NOTE | 2024-09-10 10:28 | P.PN_ITS ---
Subjective 2 Subjective: I spoke with the patient's . She has not seem to have any significant discomfort at this time. She had been having increased problems with dementia over the last number of months. He states that she would not have wanted to have further life saving measures carried out in her current state. He continues to want to proceed with comfort care measures for her. He is open to options for hospice treatment but does not feel that he would be able to take care of her at home. Vitals/I&O/Wt Last Vital Signs Temp 98.1 F 09/09/24 12:00 Pulse 85 09/09/24 12:00 Resp 14 09/10/24 06:24 BP 157/97 09/09/24 12:00 Pulse Ox 80 L 09/09/24 23:27 O2 Del Method Room Air 09/10/24 01:49 O2 Flow Rate 10 09/09/24 08:00 FiO2 70 09/09/24 05:45 Physical Exam 2 Narrative: General: Sleepy, minimal responsiveness. Heart: Regular rate and rhythm. No murmurs. Lungs: Decreased air entry bilaterally with crackles noted at the bilateral bases. Abdomen: Soft, mild to moderate diffuse tenderness. Extremities: No pitting edema. Urinary Catheter Management: Saldana Latex Free: Cath Placed During This Visit: yes Reason for Continuing Indwelling Catheter: Accurate Measurement of Urinary Output in Critically Ill Patients Urinary Catheter Date of Insertion: 09/06/24 Urinary Catheter Time of Insertion: 13:00 Data 09/09/24 04:36 09/09/24 04:36 Micro: Microbiology 09/05/24 17:22 Blood Culture - Final Blood Staphylococcus aureus 09/06/24 18:17 Urine Culture - Final Urine Catheterized 09/08/24 06:29 Blood Culture - Preliminary Blood NEGATIVE TO DATE 09/08/24 06:27 Blood Culture - Preliminary Blood NEGATIVE TO DATE A&P Assessment and plan (1) ARDS (adult respiratory distress syndrome): The patient is currently on comfort care measures. After removal of oxygen her SPO2 has been in the 80% range. I discussed with the patient's that the dying process can be variable in terms of length. With electrolyte abnormalities, sometimes things will go quickly, however it is possible that the dying process may take a number of days or longer. I recommended that he consider talking with a hospice organization to discuss options for her. We will put in a referral to case management to help get them set up for this tomorrow if still needed at that time. He continued to be okay with no further labs or interventions at this time. All questions were answered. (2) Hypoxia: (3) Alzheimer disease: (4) Staphylococcus aureus bacteremia: (5) JULIET (acute kidney injury): PDMP PDMP Reviewed: Not Reviewed Attestations 2 Medical Necessity Statement*: The patient is currently on comfort measures alone. We will plan to get her set up for hospice as an outpatient. The patient's stay will continue to need greater than 2 midnights. Coding Level of Care Code Acute Code for [facility] Fwd Diagnoses ARDS (adult respiratory distress syndrome) J80 Hypoxia R09.02 Alzheimer disease G30.9; F02.80 Staphylococcus aureus bacteremia R78.81; B95.61 JULIET (acute kidney injury) N17.9
[2024-09-10 11:36] VITALS: PULSE 75; O2SAT 82
--- NOTE | 2024-09-10 15:24 | P.PN_ITS ---
Subjective 2 Subjective: Patient has gone comfort measures. Family and patient decided Medications: Reviewed: Yes Vitals/I&O/Wt Last Vital Signs Temp 98.1 F 09/09/24 12:00 Pulse 75 09/10/24 11:36 Resp 14 09/10/24 06:24 BP 157/97 09/09/24 12:00 Pulse Ox 82 L 09/10/24 11:36 O2 Del Method Room Air 09/10/24 01:49 O2 Flow Rate 10 09/09/24 08:00 FiO2 70 09/09/24 05:45 Physical Exam 2 Const: OTHER: GENERAL: Patient sleepy and fatigued HEART: Regular S1 and S2. No murmur, rub or gallop. LUNGS: Clear to auscultate bilaterally. CENTRAL NERVOUS SYSTEM: Grossly nonfocal. EXTREMITIES: Lower extremities with out edema bilaterally. Urinary Catheter Management: Saldana Latex Free: Cath Placed During This Visit: yes Reason for Continuing Indwelling Catheter: Accurate Measurement of Urinary Output in Critically Ill Patients Urinary Catheter Date of Insertion: 09/06/24 Urinary Catheter Time of Insertion: 13:00 Data 09/09/24 04:36 09/09/24 04:36 Micro: Microbiology 09/05/24 17:22 Blood Culture - Final Blood Staphylococcus aureus A&P Assessment and plan (1) CHF (congestive heart failure): (2) Cardiomyopathy: (3) Pacemaker: (4) Elevated troponin: (5) JULIET (acute kidney injury): (6) Dehydration: (7) Infection due to parainfluenza virus 3: Plan Family and patient decided comfort measures At this point will sign off Medicine is managing comfort care PDMP PDMP Reviewed: Not Reviewed Attestations 2 Medical Necessity Statement*: As per medicine Coding Level of Care Code Acute Code for Chg Fwd Diagnoses Chronic systolic congestive heart failure I50.22 Heart failure type: systolic Heart failure chronicity: chronic Dilated cardiomyopathy I42.0 Cardiomyopathy type: dilated Pacemaker Z95.0 Elevated troponin R79.89 JULIET (acute kidney injury) N17.9 Dehydration E86.0 Infection due to parainfluenza virus 3 B34.8
[2024-09-10 22:42] VITALS: RESP 16
[2024-09-11] MEDS: LORazepam 2 mg/mL INJ 1 mL IVP ×2 (01:41→08:37)
[2024-09-11] MEDS: glycopyrrolate 0.2 mg/mL SDV 2 mL IV (03:18)
[2024-09-11 05:48] VITALS: RESP 18
[2024-09-11] MEDS: morphine 4 mg/mL SDV 1 mL IVP ×4 (05:48→18:37)
--- NOTE | 2024-09-11 07:22 | PC.OT ---
D/C from OT due comfort measures
[2024-09-11 11:48] VITALS: RESP 20
--- NOTE | 2024-09-11 12:52 | PC.SOCIAL ---
IMM Update pg 2 of IMM Updated and reviewed w/ patient. Copy provided. Copy dated, initialed and placed in chart.
--- NOTE | 2024-09-11 13:36 | PM.PN ---
Subjective Subjective: Hospital course, labs appreciated. Seen with at bedside. Patient laying comfortably in bed. As a patient has remained comfortable. Medications: Reviewed: Yes Vitals/I&O/Wt Last Vital Signs Temp 98.1 F 09/09/24 12:00 Pulse 75 09/10/24 11:36 Resp 20 H 09/11/24 11:48 BP 157/97 09/09/24 12:00 Pulse Ox 82 L 09/10/24 11:36 O2 Del Method Room Air 09/10/24 01:49 O2 Flow Rate 10 09/09/24 08:00 FiO2 70 09/09/24 05:45 09/10/24 09/11/24 09/11/24 22:59 06:59 14:59 Output Total 400 / 400 Balance -400 / -400 Weight last 48 hrs Weight 76.929 kg Physical Exam Narrative: Deferred given comfort care status Urinary Catheter Management: Saldana Latex Free: Cath Placed During This Visit: yes Reason for Continuing Indwelling Catheter: Accurate Measurement of Urinary Output in Critically Ill Patients Urinary Catheter Date of Insertion: 09/06/24 Urinary Catheter Time of Insertion: 13:00 Data 09/09/24 04:36 09/09/24 04:36 Micro: Microbiology 09/05/24 17:15 Blood Culture - Final Blood NO GROWTH AFTER 5 DAYS 09/05/24 17:22 Blood Culture - Final Blood Staphylococcus aureus A&P Assessment and plan (1) Comfort measures only status: (2) ARDS (adult respiratory distress syndrome): (3) Staphylococcus aureus bacteremia: (4) Hypoxia: Likely multifactorial apparently per official report patient does not have pneumonia - Continue to monitor closely empiric anticoagulant till patient renal failure resolves for a scan if need be to rule out PE. (5) JULIET (acute kidney injury): Patient is with worsening JULIET than prior - Continue to treat and keep medication renal friendly (6) Elevated troponin: Troponin elevation with no chest pain nothing much going on with this patient except for metabolic encephalopathy, no chest pains it is most likely due to renal failure lack of good elimination of troponin. (7) Acute metabolic encephalopathy: Metabolic encephalopathy due to renal failure must continue to treat and optimize (8) Dehydration: (9) COPD (chronic obstructive pulmonary disease): (10) Osteoarthritis of right knee: (11) CHF (congestive heart failure): (12) Cardiomyopathy: (13) Goals of care, counseling/discussion: (14) Alzheimer disease: Plan Plan for the day: Patient on comfort measures status only given baseline Alzheimer's, new ARDS and Staphylococcus bacteremia after discussion with patient's DPOA/ with previous provider. Continue with comfort care measures status only. requesting transition to hospice at skilled nursing or inpatient hospice. Will discuss with case management regarding possible transition with hospice to skilled nursing versus inpatient hospice. PDMP PDMP Reviewed: Not Reviewed Attestations Medical Necessity Statement*: Requires further hospitalization while outpatient hospice can be set up Diagnoses Comfort measures only status Z51.5 ARDS (adult respiratory distress syndrome) J80 Staphylococcus aureus bacteremia R78.81; B95.61 Hypoxia R09.02 JULIET (acute kidney injury) N17.9 Elevated troponin R79.89 Acute metabolic encephalopathy G93.41 Dehydration E86.0 Simple chronic bronchitis J41.0 COPD type: chronic bronchitis Chronic bronchitis type: simple Osteoarthritis of right knee M17.11 Chronic systolic congestive heart failure I50.22 Heart failure type: systolic Heart failure chronicity: chronic Dilated cardiomyopathy I42.0 Cardiomyopathy type: dilated Goals of care, counseling/discussion Z71.89 Alzheimer disease G30.9; F02.80
--- NOTE | 2024-09-11 21:14 | PC.NURSE ---
report called to Mily PENA, patient moved upstairs to 262, patient called and informed.
[2024-09-12] MEDS: morphine 10 mg/0.5 mL oral liq UD SUBLINGUAL ×2 (03:27→03:42)
[2024-09-12] MEDS: glycopyrrolate 0.2 mg/mL SDV 2 mL IV (03:28)
[2024-09-12 04:04] VITALS: RESP 52
[2024-09-12] MEDS: morphine 4 mg/mL SDV 1 mL IVP ×2 (04:04→06:13)
[2024-09-12] MEDS: atropine 1% op soln 2 mL Btl 3 DROP SUBLINGUAL (06:12)
[2024-09-12 06:13] VITALS: RESP 52
--- NOTE | 2024-09-12 07:18 | PC.NURSE ---
during report pt noted not breathing, second nurse Shon verified, spouse notified via phone and he said he is coming right away, house sup notified and Dr. López notified.
--- NOTE | 2024-09-12 07:26 | PC.NURSE ---
HS notified [facility] of TOD. Fully released under [facility]. Primary nurse and charge nurse notified of update. Ref. # [id number]
--- NOTE | 2024-09-12 07:49 | PC.NURSE ---
Pt here and filled out body release form, Andreas Cutler has been selected.
== END 2024-09-11 17:00 | disposition hospice, inpatient (51) | DRG 193 ==
LOC: ER 19:36 → CSU 20:45 → MEDSURG 09-12 07:20
PROVIDERS: Family Medicine; Hospitalist; Internal Medicine; Admitting Provider Internal Medicine; Emergency Provider Student in an Organized Health Care Education/Training Program; PCP Family Medicine; Visit Provider Student in an Organized Health Care Education/Training Program
DX: J18.9 Pneumonia, unspecified organism (principal); G93.41 Metabolic encephalopathy; J80 Acute respiratory distress syndrome; J44.0 Chronic obstructive pulmonary disease with (acute) lower respiratory infection; N17.9 Acute kidney failure, unspecified; I42.0 Dilated cardiomyopathy; F02.83 Dementia in other diseases classified elsewhere, unspecified severity, with mood disturbance; E87.20 Acidosis, unspecified; I50.22 Chronic systolic (congestive) heart failure; J98.11 Atelectasis; B95.61 Methicillin susceptible Staphylococcus aureus infection as the cause of diseases classified elsewhere; R79.89 Other specified abnormal findings of blood chemistry; E86.0 Dehydration; M19.90 Unspecified osteoarthritis, unspecified site; M17.11 Unilateral primary osteoarthritis, right knee; G30.9 Alzheimer's disease, unspecified; W01.0XXA Fall on same level from slipping, tripping and stumbling without subsequent striking against object, initial encounter; Z66 Do not resuscitate; M54.50 Low back pain, unspecified; B97.89 Other viral agents as the cause of diseases classified elsewhere; E78.5 Hyperlipidemia, unspecified; Z51.5 Encounter for palliative care; Z79.890 Hormone replacement therapy; Z99.81 Dependence on supplemental oxygen; Z95.0 Presence of cardiac pacemaker; Z87.891 Personal history of nicotine dependence
CPT/HCPCS: 36415; 36600; 51702; 70450; 71045; 71250; 72128; 72131; 73700; 76770; 78580; 80048; 80051; 80053; 80202; 81001; 82330; 82550; 82805; 83605; 83690; 83735; 83880; 84145; 84300; 84484; 85007; 85025; 85378; 86140; 87040; 87086; 87150; 87186; 87205; 87486; 87581; 87633; 92507; 92523; 92526; 92610; 93005; 93306; 94640; 94664; 96365; 96372; 96376; 97110; 97116; 97161; 97167; 97530; 99285; A9270; A9540; J1100; J1644; J1938; J2060; J2270; J2405; J2543; J2919; J3372; J3480; J3486; J3490; J7030; J7611; J7626; J9999; P9046

== ENCOUNTER 2024-09-11 17:00 | Inpatient (IN) | payer OTHER, MEDICARE, SELFPAY ==
--- OUTSIDE RECORDS SUMMARY | 2024-09-12 07:27 | XMS_ITS ---
Author Organization Unknown TREATMENT PLAN Planned Care Start Date Provider Encounter for Check-up [id number] Miller estrada [facility]
--- OUTSIDE RECORDS SUMMARY | 2024-09-12 07:28 | XMS_ITS | Data Portability ---
Author Organization [facility] Address [address] [address] Care Team Providers Care Work Order Sorting Clerk Name Role Phone TINO PLATT Primary Care Provider [phone] Assessment Encounter Date Assessment Date Assessment LastModified by Organization Details LastModified Time 02/21/2024 02/21/2024 The lesion was anesthetized with 1% lidocaine with epinephrine. The lesion was then removed with a curved razor. I then aggressively curettage the area with a 4 mm curette. Monsel solution was then used to maintain excellent hemostasis. Not available 03/23/2024 07:51:07 03/07/2024 03/07/2024 They will monitor the scare on her elbow to watch for recurrence. Not available 03/07/2024 11:18:27 08/09/2024 08/09/2024 unable to obtain ms contin. I discussed prescribing methadone instead. We discussed options to control her knee pain until she can have definitive treatment. We will trial a long acting opioid with hydrocodone. Not available 08/09/2024 18:30:12 Plan of Treatment Reminders Order Date Submit Date Provider Last Modified By Organization Details Last Modified Time Details Appointments OFFICE VISIT 2024 11:20A M DEB HALE Not available Not available Not available OFFICE VISIT 2024 12:00P M Tino Platt MD Not available Not available Not available Lab TSH + free T4, serum [email or web address], [address], [facility], [place], [address], 04/26/2024 17:15:19 Referral None record ed. Procedures excisi on of lesion s (proc) 2023 024 [email or web address] [facility], [address], [address], [place], [address], 02/22/2024 11:42:33 Surgeries None record ed. Imaging None record ed. Medication Orders hydroc odone 10 mg-juju tamino phen [address] [facility], [address] [place] [address], [id number], 08/09/2024 13:40:59 MS Contin 15 mg tablet ,exten ded releas e [address] [facility], [address] [place] [address], [id number], 08/09/2024 17:02:20 methad one 5 mg tablet [address] [facility], [address] [place] [address], [id number], 08/11/2024 10:22:57 Percoc et 5 mg-325 mg tablet [address] [facility], [address] [place] [address], [id number], 08/10/2024 10:24:04 Synthr oid 50 mcg tablet [address] [facility], [address] [place] [address], [id number], 02/23/2024 15:19:36 Patient TargetsNo targets recorded. Patient InstructionsNo instructions recorded. Reason for Referral None Reported. Results Created Date Observation Date Name Description Value Unit Range Abnormal Flag Note LastModifiedBy Organization Detail LastModifiedTime 02/07/20 24 02/07/2024 CMP (FEMA LE) glucose 103.0 mg/dL 60.0-9 9.0 high Not Available [facility] [address] [facility], [place], [address], 02/07/2024 13:05:54 02/07/20 24 02/07/2024 CMP (FEMA LE) BUN (blood urea nitrogen) 29.0 mg/dL 10.0-2 6.0 high Not Available [facility] [address] [facility], [place], [address], 02/07/2024 13:05:54 02/07/20 24 02/07/2024 CMP (FEMA LE) creatinine (serum) 1.5 mg/dL 0.4-1. 5 Not Available [facility] [address] [address], [place], [address], 02/07/2024 13:05:54 02/07/20 24 02/07/2024 CMP (FEMA LE) BUN/creatini ne ratio 20.00 ratio Not Available [facility] [address] [address], [place], [address], 02/07/2024 13:05:54 02/07/20 24 02/07/2024 CMP (FEMA LE) eGFR calculated 36.8 Not Available [facility] [address] [address], [place], [address], 02/07/2024 13:05:54 02/07/20 24 02/07/2024 CMP (FEMA LE) total protein 7.8 g/dL 6.0-8. 5 Not Available [facility] [address] [address], [place], [address], 02/07/2024 13:05:54 02/07/20 24 02/07/2024 CMP (FEMA LE) total bilirubin 0.7 mg/dL 0.2-1. 3 Not Available [facility] [address] [facility], [place], [address], 02/07/2024 13:05:54 02/07/20 24 02/07/2024 CMP (FEMA LE) albumin 4.5 g/dL 3.5-5. 5 Not Available [facility] [address] [facility], [place], [address], 02/07/2024 13:05:54 02/07/20 24 02/07/2024 CMP (FEMA LE) globulin 3.3 calc Not Available [facility] [address] [facility], [place], [address], 02/07/2024 13:05:54 02/07/20 24 02/07/2024 CMP (FEMA LE) AST (SGOT) 25.0 U/L 0.0-46 .0 Not Available [facility] [address] [facility], [place], [address], 02/07/2024 13:05:54 02/07/20 24 02/07/2024 CMP (FEMA LE) altv (SGPT) 10.0 U/L 13.0-6 9.0 abnormal Not Available [facility] [address] [facility], [place], [address], 02/07/2024 13:05:54 02/07/20 24 02/07/2024 CMP (FEMA LE) A/G ratio 1.4 ratio Not Available [facility] [address] [facility], [place], [address], 02/07/2024 13:05:54 02/07/20 24 02/07/2024 CMP (FEMA LE) ALP phos 67.0 U/L 30.0-1 40.0 normal Not Available [facility] [address] [facility], [place], [address], 02/07/2024 13:05:54 02/07/20 24 02/07/2024 CMP (FEMA LE) calcium 9.3 mg/dL 8.4-10 .5 Not Available [facility] [address] [facility] [address] [facility], [place], [address], 02/07/2024 13:05:54 02/07/2002/07/2024 CMP (FEMA LE) sodium 140.0 mmol/ L 136.0- 145.0 Not Available [facility] [address] [facility], [place], [address], 02/07/2024 13:05:54 02/07/2002/07/2024 CMP (FEMA LE) potassium 4.6 mmol/ L 3.5-5. 1 Not Available [facility] [address] [facility], [place], [address], 02/07/2024 13:05:54 02/07/2002/07/2024 CMP (FEMA LE) chloride 103.0 mmol/ L 98.0-1 10.0 normal Not Available [facility] [address] [facility], [place], [address], 02/07/2024 13:05:54 02/07/20 24 02/07/2024 CMP (FEMA LE) C02 31.0 mmol/ L 22.0-3 1.0 Not Available [facility] [address] [facility], [place], [address], 02/07/2024 13:05:54 02/07/20 24 02/07/2024 CMP (FEMA LE) anion gap 6.0 calc Not Available [facility] [address] [facility], [place], [address], 02/07/2024 13:05:54 02/07/20 24 02/07/2024 CMP (FEMA LE) osmolality 294.8 calc Not Available [facility] [address] [facility], [place], [address], 02/07/2024 13:05:54 02/07/20 24 02/07/2024 CBC WBC 12.1 x10 4.0-10 .5 high Not Available [facility] [address] [facility] [address] [facility] [facility], [place], [address], 02/07/2024 18:45:30 02/07/20 24 02/07/2024 CBC RBC 4.79 x10 3.50-5 .50 Not Available [facility] [address] [facility], [place], [address], 02/07/2024 18:45:30 02/07/20 24 02/07/2024 CBC HGB 15.3 g/dL 12.0-1 6.0 Not Available [facility] [address] [facility] [address] [facility], [place], [address], 02/07/2024 18:45:30 02/07/20 24 02/07/2024 CBC HCT 45.8 % 37.0-4 7.0 Not Available [facility] [address] [facility] [address] [facility], [place], [address], 02/07/2024 18:45:30 02/07/20 24 02/07/2024 CBC MCV 95.7 fL 80.0-9 9.9 Not Available [facility] [address] [facility], [place], [address], 02/07/2024 18:45:30 02/07/20 24 02/07/2024 CBC MCH 31.8 pg 27.0-3 2.0 Not Available [facility] [address] [facility], [place], [address], 02/07/2024 18:45:30 02/07/20 24 02/07/2024 CBC MCHC 33.3 g/dL 32.0-3 6.0 Not Available [facility] [address] [facility] [address] [facility], [place], [address], 02/07/2024 18:45:30 02/07/20 24 02/07/2024 CBC RDW 14.0 % 11.5-1 4.5 Not Available [facility] [address] [facility], [place], [address], 02/07/2024 18:45:30 02/07/20 24 02/07/2024 CBC plt 202.6 x10 140.0- 451.0 Not Available [facility] [address] [facility], [place], [address], 02/07/2024 18:45:30 02/07/20 24 02/07/2024 CBC lymphocytes % 17.9 % 20.0-5 0.0 low Not Available [facility] [address] [facility], [place], [address], 02/07/2024 18:45:30 02/07/20 24 02/07/2024 CBC granulcytes % 67.8 % 30.0-7 0.0 Not Available [facility] [address] [facility], [place], [address], 02/07/2024 18:45:30 02/07/20 24 02/07/2024 CBC monocytes % 7.1 % 2.0-16 .0 Not Available [facility] [address] [facility], [place], [address], 02/07/2024 18:45:30 02/07/20 24 02/07/2024 CBC granulcytes# 8.2 x10 Not Kandi ilable [facility] [address] [facility], [place], [address], 02/07/2024 18:45:30 02/07/20 24 02/07/2024 CBC lymphocytes # 2.2 x10 Not Available [facility] [address] [facility], [place], [address], 02/07/2024 18:45:30 02/07/20 24 02/07/2024 CBC monocytes # 0.9 x10 Not Avai lable [facility] [address] [facility], [place], [address], 02/07/2024 18:45:30 02/07/20 24 02/08/2024 CREAT INE KINAS E, TOTAL creatine kinase, total 50 U/L 29-143 normal Not Available [facility] [address], [address], 02/08/2024 14:28:05 02/07/20 24 02/08/2024 B TYPE NATRI URETI C PEPTI DE (BNP) B type natriuretic peptide (BNP) 16 pg/mL <100 normal BNP level s incre ase with age in the gener al popul ation with the highe st value s seen in indiv idual s great er than 75 years of age. Refer ence: J. Am. Orion. Cardi ol. 2002; 40:97 6-982 . Not Available [facility] [address], [address], 02/08/2024 14:28:07 02/07/20 24 02/07/2024 TSH, serum or plasm a TSH 5.21 uIU/m L 0.49-3 .82 abnormal Not Available [facility] ([facility] [address] [facility]) [address] [place], [address], 02/07/2024 11:49:46 02/21/20 24 02/25/2024 TISSU E PATHO LOGY clinical information None given Not Available [facility] [address] [place], [address], 02/25/2024 21:09:07 02/21/20 24 02/25/2024 TISSU E PATHO LOGY pathologist Kirill arce Jr., M.D. Board Certi fied in Anato destiny Patho logy, Clini gillian Patho logy and Cytop athol ogy, Speci alizi ng in Urolo gic Patho logy (elec troni c signa ture) Not Available [address] [address] [place], [address], 02/25/2024 21:09:07 02/21/20 24 02/25/2024 TISSU E PATHO LOGY A source Skin, left elbow , biops y Not Available [address] [address] [place], [address], 02/25/2024 21:09:07 02/21/20 24 02/25/2024 TISSU E PATHO LOGY A gross description Speci men is recei dandre in 10% neutr al buffe red forma fito, label ed with multi ple patie nt ident ifier s and consi sts of one piece from a skin shave biops y measu ring 1.0 x 0.9 x 0.3 cm, irreg ular in shape and mesa-g ray in color , with a pigme nted area measu ring 0.6 x 0.6 cm and mesa-b rown in color . The deng ns are inked green . The speci men is seria lly secti oned and entir juan submi tted in one casse tte(s ). 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 Not Available [facility] [address] [address] , [place], [address], 02/25/2024 21:09:07 02/21/20 24 02/25/2024 TISSU E PATHO LOGY A comment Appro priat e clini gillian treat ment is viviana ross Not Available [facility] [address] [address], [place], [address], 02/25/2024 21:09:07 Result Notes None recorded. Problems Name Problem SNOMED Code Status Onset Date Resolution Date Notes Provider Name and Address Organization Details Recorded Time History of anxiety state 813277127 Completed 202107/10/2024 Anxiety/ Depressi on; 12/24/19 3:01PM by Brendan Black RN, Office Visit; Promoted ; acuity set as *; DIOGO Quezada 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, [place] 5 12:24:54 Fibromya lgia 327685298 Active 2021 Fibromya lgia; 12/24/19 3:01PM by Brendan Black RN, Office Visit; Promoted ; acuity set as *; DIOGO Quezada [facility] [place] 5 12:25:35 Diarrhea 20924381 Completed 202207/10/[address] [facility] 5 12:25:21 Neck pain 92847011 Active 2022 TREBA NEUSCHWAN MANDIE null, [facility] 5 12:25:54 Producti ve cough 72096635 Completed 202207/10/2024 TREBA NEUSCHWAN MANDIE null, [facility] 5 12:26:02 Cough 05724005 Completed 202207/10/2024 TREBA NEUSCHWAN MANDIE null, [facility] 5 12:25:12 COVID-19 539087517 Completed 202207/10/2024 TREBA NEUSCHWAN MANDIE null, [facility] 5 12:25:17 Chronic pain 04813286 Active 2024 BRENDAN lange, [facility] 5 13:02:25 Pain of right knee joint 05160115294 4100 Active 2024 BRENDAN lange, [facility] 5 13:02:27 Chronic kidney disease stage 3B 406652560 Active 2022 TREBA NEUSCHWAN MANDIE null, [facility] 5 12:24:59 Asthma 685577506 Active 2022 TREBA NEUSCHWAN MANDIE null, [facility] 5 12:24:48 Essentia l hyperten nuris 74896758 Active 2022 TREBA NEUSCHWAN MANDIE null, [facility] 5 12:25:27 Hypercho lesterol emia 54323884 Active 2022 TREBA NEUSCHWAN MANDIE null, [facility] 5 12:25:44 Congesti ve heart failure 38561273 Active 2022 [facility] 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 5 12:25:49 Angina pectoris 072203814 Active 2022 DIOGO KIKEMARVINNICHOLASN MANDIE [facility] 5 12:24:40 Poor short-te rm memory 914444893 Active 2022 NANCYHAI LOCKWOOD [facility] 5 12:25:58 Problem Notes None recorded. Medical Equipment None Reported. Allergies Allergen ID Allergen Name Allergen Category Reaction Reaction Severity Criticality Documentation Date Start Date Code Code System Note Provider Name and Address Organization Details Recorded Time 50658 Celebrex medicatio n dizziness Not available Not available 10/31/2022 25401 7 RxNorm React ion: Dizzi ness; luis enrique rgic; Comme nt: Recor ded 12/23 2:59P M by Sheridan Black RN, Offic e Visit ; Promo veronica; Signi fican ce: *; Reaso n: Drug aller gy; ; Not Available [facility] 3 02:28:13 49197 codeine hydrochlo ride Not available hives Not available Not available 10/31/2022 92636 66 RxNorm React ion: Hives ; Comme nt: Recor ded 12/23 2:59P M by Sheridan Black RN, Offic e Visit ; Promo veronica; Signi fican ce: *; ; Not Available [facility] 3 02:28:13 58936 Substance with sulfonami de structure and antibacte rial mechanism of action (substanc e) medicatio n hives Not available Not available 10/31/2022 18286 8003 SNOMED React ion: Hives ; Comme nt: Recor ded 12/23 2:59P M by Sheridan Black RN, Offic e Visit ; Promo veronica; Whit gant ce: *; ; Not Available [facility] 3 02:28:13 31553 Product containin g penicilli n (product) medicatio n hives Not available Not available 10/31/2022 31348 8001 SNOMED React ion: Hives ; Comme nt: Recor ded 12/23 2:59P M by Sheridan Black RN, Offic e Visit ; Promo veronica; Whit gant ce: *; ; Not Available [facility] 3 02:28:13 Medications Name Sig Start Date Stop Date Status Note LastModified by Organization Details LastModified Time furosemid e 40 mg tablet TAKE 1 TABLET BY MOUTH TWICE DAILY active Not Available Not Available No t Available rivastigm ine 1.5 mg capsule take 1 capsule BY MOUTH TWICE DAILY FOR 30 DAYS active Not Available Not Available No t Available metolazon e 2.5 mg tablet TAKE 1 TABLET BY MOUTH EVERY DAY NEEDED FOR GAIN IN WEIGHT AND SHORTNES S OF BREATH active Not Available Not Available No t Available carvedilo l 12.5 mg tablet TAKE 1 TABLET BY MOUTH TWICE DAILY active Not Available Not Available No t Available donepezil 5 mg tablet TAKE 1 TABLET BY MOUTH EVERY DAY 02/06 completed Not Available Not Available Not Available meloxicam 15 mg tablet TAKE 1 TABLET BY MOUTH EVERY DAY active Not Available Not Available No t Available prednison e 20 mg tablet TAKE 2 TABLETS BY MOUTH DAILY FOR 3 DAYS THEN TAKE 1 TABLET BY MOUTH DAILY FOR 3 DAYS 09/01 completed Not Available Not Available Not Available venlafaxi ne ER 150 mg capsule,e xtended release 24 hr take 1 capsule BY MOUTH EVERY DAY active Not Available Not Available No t Available estradiol -norethin drone acet 1 mg-0.5 mg tablet TAKE 1 TABLET BY MOUTH EVERY DAY active Not Available Not Available No t Available hydrocodo ne 10 mg-acetam inophen 325 mg tablet TAKE ONE TABLET BY MOUTH EVERY 6 HOURS NEEDED active Not Available Not Available No t Available MS Contin 15 mg tablet,ex tended release Take 1 tablet every 12 hours by oral route. 2024 active Not Available Not Available Not Avai lable oxycodone -acetamin ophen 5 mg-325 mg tablet TAKE 1 TABLET BY MOUTH TWICE DAILY 08/09 completed Not Available Not Available Not Available potassium chloride ER 20 mEq tablet,ex tended release(p art/cryst ) TAKE 1 TABLET BY MOUTH TWICE DAILY active Not Available Not Available No t Available levothyro xine 50 mcg tablet TAKE 1 TABLET BY MOUTH EVERY DAY active Not Available Not Available No t Available cephalexi n 500 mg capsule take 1 capsule BY MOUTH TWICE DAILY for 7 days 01/20 completed Not Available Not Available Not Available Advair Diskus 500 mcg-50 mcg/dose powder for inhalatio n INHALE 1 PUFF BY MOUTH TWICE DAILY active Not Available Not Available No t Available nitroglyc justine 0.4 mg sublingua l tablet DISSOLVE 1 TABLET UNDER THE TONGUE EVERY 5 MINUTES NEEDED FOR CHEST PAIN. DO NOT EXCEED A TOTAL OF 3 DOSES IN 15 MINUTES. active Not Available Not Available No t Available budesonid e 0.5 mg/2 mL suspensio n for nebulizat ion use 1 vial in nebulize r EVERY DAY 07/06 completed Not Available Not Available Not Available monteluka st 10 mg tablet TAKE 1 TABLET BY MOUTH EVERY DAY active Not Available Not Available No t Available allopurin ol 300 mg tablet TAKE 1 TABLET BY MOUTH EVERY DAY active Not Available Not Available No t Available azelastin e 137 mcg (0.1 %) nasal spray USE 1 SPRAY IN EACH NOSTRIL TWICE DAILY. USE WITH FLONASE DIRECTED 07/10 completed Not Available Not Available Not Available albuterol sulfate HFA 90 mcg/actua tion aerosol inhaler INHALE 1 PUFF FOUR TIMES DAILY active Not Available Not Available No t Available SSD 1 % topical cream APPLY 1.5MM THICKNES S TWICE DAILY FOR TWO WEEKS 05/11 completed Not Available Not Available Not Available methadone 5 mg tablet TAKE 1 TABLET BY MOUTH EVERY DAY in THE morning 2024 active Not Available Not Available Not Avai lable magnesium 250 mg (as magnesium oxide) tablet Take 1 tablet every day by oral route. active Not Available Not Available No t Available rosuvasta tin 40 mg tablet TAKE 1 TABLET BY MOUTH EVERY DAY active Not Available Not Available No t Available memantine 5 mg-10 mg tablets in a dose pack take BY MOUTH PER package instruct ions 07/10 completed makes pt foggy and confused Not Available Not Available Not Available pregabali n 300 mg capsule take 1 capsule BY MOUTH TWICE DAILY active Not Available Not Available No t Available Vitamin C 1 QD active Not Available Not Kandi ilable Not Available Coreg Bid 12/08 completed pt called with dose change Vo JR/bh; Recorded 01/21/20 21 9:41AM by Diogo ku, Office Visit; Refill Quantity : 0; Not Available Not Available Not Available Lasix BID 01/20 completed 0; Recorded 12/24/19 22 3:01PM by Brendan Black, RN, Office Visit; Not Available Not Available Not Available Nitrostat SL q 5 minutes x3 prn cp 2020 active Recorded 08/08/19 21 10:01AM by Brendan Black, RN, Office Visit; Refill Quantity : 0; Not Available Not Available Not Available metolazon e as needed 12/08 completed 0; Recorded 12/24/19 22 3:01PM by Brendan Black, RN, Office Visit; Not Available Not Available Not Available Activella qd 12/08 completed Recorded 05/23/19 16 12:21PM by Tino Platt MD, Office Visit; Refill Quantity : 90; Tablet; Not Available Not Available Not Available Advair Diskus two times daily 01/05 completed Recorded 12/01/19 14 10:09AM by Tino Platt MD, Office Visit; Refill Quantity : 0; Not Available Not Available Not Available Potassium Chloride ER BID 01/05 completed 0; Recorded 12/24/19 22 3:01PM by Brendan Black, RN, Office Visit; Not Available Not Available Not Available Hydrocodo ne W/Acetami nophen q6 hrs prn 12/08 completed Recorded 05/14/19 23 3:43PM by Tino Platt MD, Refill Request; Refill Quantity : 0; Not Available Not Available Not Available Crestor QD 12/08 completed vo JR/tn; 173; Recorded 09/19/19 21 12:21PM by Diogo uk (Authori jus through Tino Platt MD), Refill Request; Refill Quantity : 90; Tablet; Not Available Not Available Not Available Lyrica BID 2018 active Recorded 11/18/19 19 1:34PM by Tino Platt MD, Office Visit; Refill Quantity : 180; Capsule; Not Available Not Available Not Available Flonase Allergy Relief 50 mcg/actua tion nasal spray,angie pension Alpha 1 spray twice a day by intranas al route. 2022 active Not Available Not Available Not Avai lable baclofen 5 mg tablet TAKE 1 TABLET BY MOUTH TWICE DAILY NEEDED FOR 30 DAYS 02/06 completed Not Available Not Available Not Available Arthritis Pain (diclofen ac) 1 % topical gel APPLY FOUR GRAMS TOPICALL Y FOUR TIMES DAILY. APPLY TO SINGLE KNEE, ANKLE OR FOOT. FOR FOOT INCLUDES SOLE, TOES AND TOP OF FOOT 07/10 completed Not Available Not Available Not Available Paxlovid 300 mg (150 mg x 2)-100 mg tablets in a dose pack take all 3 morning tabs (yellow side) by mouth at the same time & all 3 evening tabs (blue side) at the same time for 5 days as directed 09/01 completed Not Available Not Available Not Available Vitals Date Recorded Body height Body mass index (BMI) Body weight Oxygen saturation Oxygen saturation in Arterial blood by Pulse oximetry Heart rate Respiratory rate Body temperature Systolic blood pressure Diastolic blood pressure Provider Name and Address Organization Details Last Updated DateTime 5 160.02 cm 33.6 kg/m2 21328.7 6 g 97 % 97 % 78 /min 20 /min 98 [degF] 128 mm[Hg] 70 mm[Hg] DANIEL VEGA [facility] 5 11:30:52 Date Recorded Body height Body mass index (BMI) Body weight Oxygen saturation Oxygen saturation in Arterial blood by Pulse oximetry Heart rate Respiratory rate Body temperature Systolic blood pressure Diastolic blood pressure Provider Name and Address Organization Details Last Updated DateTime 5 160.02 cm 32.5 kg/m2 08733.2 g 94 % 94 % 73 /min 18 /min 97.8 [degF] 120 mm[Hg] 72 mm[Hg] [facility] 5 12:45:12 Date Recorded Body height Body mass index (BMI) Body weight Heart rate Oxygen saturation Oxygen saturation in Arterial blood by Pulse oximetry Respiratory rate Body temperature Systolic blood pressure Diastolic blood pressure Provider Name and Address Organization Details Last Updated DateTime 5 160.02 cm 31.9 kg/m2 51101.6 3 g 72 /min 90 % 90 % 20 /min 98.3 [degF] 102 mm[Hg] 58 mm[Hg] BRENDAN BLACK [facility] 5 13:01:10 Date Recorded Body height Body mass index (BMI) Body weight Oxygen saturation Oxygen saturation in Arterial blood by Pulse oximetry Heart rate Body temperature Respiratory rate Systolic blood pressure Diastolic blood pressure Provider Name and Address Organization Details Last Updated DateTime 4 160.02 cm 33.9 kg/m2 81621.5 4 g 96 % 96 % 72 /min 98.7 [degF] 20 /min 120 mm[Hg] 76 mm[Hg] [facility] 4 12:08:36 Date Recorded Body height Body weight Oxygen saturation Oxygen saturation in Arterial blood by Pulse oximetry Heart rate Respiratory rate Body temperature Systolic blood pressure Diastolic blood pressure Provider Name and Address Organization Details Last Updated DateTime 4 160.02 cm 06678.1 7 g 95 % 95 % 74 /min 18 /min 97.6 [degF] 124 mm[Hg] 72 mm[Hg] [facility] 4 10:03:25 Social History Question Answer Notes LastModified by Organizat ion Details LastModified Time Tobacco Smoking Status Former Smoker BRENDAN BLACK [facility] 09/02/2022 10:11:38 What Is Your Relationship Status? Information not available 12/08/2022 Sex: Unknown Functional Status Question Answer Note LastModified by Organizat ion Details LastModified Time Do you use any illicit or recreational drugs? No Information not available 01/20/2023 Do you or have you ever used any other forms of tobacco or nicotine? No Information not available 01/20/2023 What is your level of alcohol consumption? Occasional Information not available 01/20/2023 Are you able to care for yourself? Yes Information n ot available 12/08/2022 Mental Status None recorded. Family History Nothing Reported Notes:Father: Myocardial Inf arction, Hypertension, Gout Maternal Grandmother: Leukemia Mother: Myocardial Infarction, Hypertension Medical History No medical history recorded. Gynecological HistoryNo gynecological history recorded. Obstetrics History GPAL:G 0 P 0 0 0 0 Immunizations Vaccine Type Date Status Note Provider Nam e and Address Organization Details Recorded Time zoster live 0 completed Not Available [facility] 03/03/2023 11:10:41 Influenza, split virus, trivalent, preservative 3 completed Not Available [facility] 03/03/2023 11:10:41 Influenza, split virus, trivalent, preservative 5 completed Not Available [facility] 03/03/2023 11:10:41 Pneumococcal conjugate PCV 13 5 completed Not Available [facility] 03/03/2023 11:10:41 pneumococcal polysaccharide PPV23 4 completed Not Available [facility] 03/03/2023 11:10:41 Influenza, split virus, trivalent, preservative 4 completed Not Available [facility] 03/03/2023 11:10:41 Influenza, adjuvanted, quadrivalent, PF 3 completed INDIO CURTIS, [address], [id number], [facility], [facility] 01/23/2023 14:56:50 RSV, bivalent, protein subunit RSVpreF, diluent reconstituted, 0.5 mL, PF 3 completed BRENDAN lange, [facility] 01/20/2023 14:45:48 COVID-19, mRNA, LNP-S, PF, 50 mcg/0.5 mL 4 completed Not Available [facility] 08/09/2024 12:17:16 Influenza, adjuvanted, trivalent, PF 4 completed Not Available [facility] 08/09/2024 12:17:16 COVID-19, mRNA, LNP-S, PF, 50 mcg/0.5 mL 4 completed Not Available [facility] 08/09/2024 12:17:16 RSV, bivalent, protein subunit RSVpreF, diluent reconstituted, 0.5 mL, PF 3 completed Not Available [facility] 08/09/2024 12:17:16 zoster recombinant 8 [facility] 01/20[facility]2023 14:45:48 zoster recombinant 8 completed BRENDAN lange, [facility] 01/20/2023 14:45:48 Influenza, high-dose, quadrivalent, PF 2 completed [facility] 01/20/2023 14:45:48 Influenza, adjuvanted, quadrivalent, PF 1 completed BRENDAN lnage, [facility] 01/20/2023 14:45:48 COVID-19, mRNA, LNP-S, PF, 100 mcg/0.5mL dose or 50 mcg/0.25mL dose 1 completed BRENDAN lange, [facility] 01/20/2023 14:45:48 COVID-19, mRNA, LNP-S, bivalent, PF, 50 mcg/0.5 mL or 25mcg/0.25 mL dose 2 completed [facility] 01/20/2023 14:45:48 Pneumococcal conjugate PCV 13 8 completed BRENDAN BLACK [facility] 01/20/2023 14:45:48 Influenza, high-dose, trivalent, PF 6 completed [facility] 01/20/2023 14:45:49 Influenza, high-dose, trivalent, PF 8 completed [facility] 01/20/2023 14:45:49 Influenza, high-dose, trivalent, PF 7 completed [facility] 01/20/2023 14:45:49 Influenza, high-dose, trivalent, PF 9 completed [facility] 01/20/2023 14:45:49 Influenza, split virus, quadrivalent, PF 0 completed [facility] 01/20/2023 14:45:49 Past Encounters Encounter ID Performer Location Encounter Start Date Encounter Closed Date Diagnosis/Indication Diagnosis SNOMED-CT Code Diagnosis ICD10 Code Diagnosis Note [id number] Tino Platt MD [facility] ([facility] [address]) [address] [place] [id number] 5 07/06/2022 10:51:03 07/07/2022 12:17:41 Hypercholesterolemia 16767409 E78.00 Essential hypertension 15201447 I10 Asthma 246789959 J45.90 9 Chronic ki dney disease stage 3B 735990710 N18.32 Hypertensi ve heart disease with congestive heart failure 2808002 I11.0 Congestive heart failure 11488035 I50.9 Angina pectoris 31300518 0 I20.9 Poor short -term memory 418131129 R41.3 WE discussed options and she is going to make an effort to compensate for her memory first. WE will consider further interventi on depending on how it goes. Chronic low back pain 27 8400503 M54.50 Pain of mu ltiple joints 81846803 M25.50 Will try and increase tylenol [id number] LEONEL ARANA [facility] ([facility] [address]) [address] [place] [address] [id number] 5 08/21/2022 13:38:38 08/21/2022 13:40:00 [id number] Tino Platt MD [facility] ([facility] [address]) [address] [place] [id number] 5 09/02/2022 09:41:56 09/02/2022 13:38:44 Pain in right foot 3411852489 96596 M79.671 Esophageal dysphagia 408 63615 R13.19 phlegm [place]. [id number] Tino Platt MD [facility] ([facility] [address]) [address] [place] [address] [id number] 5 10/07/2022 08:47:31 10/07/2022 16:29:49 Poor short-term memory 311879710 R41.3 WE discussed options and she is going to make an effort to compensate for her memory first. WE will consider further interventi on depending on how it goes. Dysphagia 68979197 R13.1 0 [id number] Tino Platt MD [facility] ([facility] [address]) [address] [place] [id number] 5 12/08/2022 09:05:48 12/08/2022 18:46:22 Diarrhea 79870170 R19.7 Difficulty swallowing 28 3494802 R13.10 [id number] Tino Platt MD [facility] ([facility] [address]) [address] [place] [address] [id number] 5 01/05/2023 08:54:54 01/13/2023 14:41:26 Cough 53546551 R05.9 Productive cough 2996910 5 R05.9 Neck pain 36739451 M54.2 Poor short -term memory 152832412 R41.3 [id number] Tino Platt MD [facility] ([facility] [address]) [address] [place] [address] [id number] 5 01/20/2023 14:09:04 01/20/2023 17:35:42 Diarrhea 46560574 R19.7 Neck pain 61599604 M54.2 Fatigue 10572049 R53.83 [id number] ROSAMARIA HALEP [facility] ([facility] [address]) [address] [place] [address] [id number] 5 01/23/2023 13:28:24 01/23/2023 15:54:46 Neck pain 34695336 M54.2 Continue with Baclofen, PT referral pending. [id number] Tino Platt MD [facility]) [address] [place] [address] [id number] 5 03/03/2023 11:10:16 03/10/2023 09:03:34 Productive cough 39404635 R05.9 Neck pain 48385472 M54.2 [id number] Erick Hernandez MD [facility] ([facility]) [address] [place] [address] [id number] 5 03/25/2023 11:10:58 03/31/2023 12:57:28 Viral screening 175449868 Z11.52 COVID-19 960724242 U07.1 Patient is positive for COVID. Patient does have risk factors that puts the patient at high risk for developing severe disease. Discussed Paxlovid and the patient would like to proceed. Discussed symptomati c treatment and plenty of fluids. Discussed recommende d quarantine guidelines set by the CDC. Follow-up if significan t shortness of breath or worsening symptoms does develop. [id number] Tino Platt MD [facility] ([facility]) [address] [place] [address] [id number] 5 09/02/2023 10:39:21 09/02/2023 17:19:08 Benign essential hypertension 6568489 I10 Hypercholesterolemia 136 21069 E78.00 Chronic ki dney disease stage 3B 065888441 N18.32 Congestive heart failure 45483280 I50.9 Asthma 457137479 J45.90 9 Essential hypertension 08039716 I10 Hypertensi ve heart disease with congestive heart failure 5253913 I11.0 Poor short -term memory 284249057 R41.3 [id number] Tino Platt MD [facility] ([facility]) [address] [place] [address] [id number] 5 11/04/2023 14:03:27 11/04/2023 16:16:27 Pain of right knee joint 9010265577 35504 M25.201 [id number] Tino Platt MD [facility] ([facility]) [address] [place] [address] [id number] 5 02/07/2024 10:22:14 02/07/2024 13:21:34 Benign essential hypertension 0472285 I10 Malaise and fatigue 2717 01245 R53.83 Muscle pain 00723800 M79 .10 Poor short -term memory 031354826 R41.3 [id number] Tino Platt MD [facility] ([facility]) [address] [place], [place] [address] 02/21/2024 11:19:34 02/21/2024 16:23:09 Non-healing pigmented skin lesion 762669373 L98.8 Hypothyroidism 93867307 E03.9 [id number] Tnio Platt MD [facility] ([facility]) [address] [place], [place] [address] 03/07/2024 09:37:17 03/07/2024 13:20:04 Squamous cell carcinoma of skin 682147490 C44.92 Malaise and fatigue 2717 25784 R53.83 [id number] Tino Platt MD [facility] ([facility]) [address] [place] [address] [id number] 5 05/11/2024 10:41:09 05/11/2024 13:20:33 Benign essential hypertension 8413361 I10 Hypercholesterolemia 136 66198 E78.00 [id number] Tino Platt MD [facility] ([facility]) [address] [place] [address] [id number] 5 07/10/2024 12:17:00 07/10/2024 16:10:31 Pain of right knee joint 1101293030 66564 M25.561 Chronic pain 22942390 G8 9.29 [id number] Tino Platt MD [facility] ([facility]) [address] [place] [address] 08/09/2024 12:16:48 08/14/2024 13:48:02 Chronic pain 67324235 G89.29 Pain of ri ght knee joint 7571203190 55457 M25.561 Health Concerns Section Related Observation LastModified by Organization Detai ls LastModified Time None Recorded Concern Status LastModified by Organization Details LastModified Time None Recorded Advance Directives Directive None Recorded Payers Encounter Date Sequence Insurance Name Policy Number Policy Robb Covered Member ID Robb Member ID Guarantor Name 02/21/2024 1 [place] Alphonso Axel [id number] Marglynn Axel 02/21/2024 2 [employer] [place] (MEDICARE SUPPLEMENT) Marglynn Axel [id number] Marglynn Axel 03/07/2024 1 [place] Alphonso Axel [id number] Marglynn Axel 03/07/2024 2 [employer] [place] (MEDICARE SUPPLEMENT) Marglynn Axel [id number] Marglynn Axel 05/11/2024 1 [place] Alphonso Axel [id number] Marglynn Axel 05/11/2024 2 [employer] [place] (MEDICARE SUPPLEMENT) Marglynn Axel [id number] Marglynn Axel 07/10/2024 1 [place]: [place] Alphonso Axel [id number] 7 Marglynn Axel 07/10/2024 2 [employer] [place] (MEDICARE SUPPLEMENT) Marglynn Axel [id number] Marglynn Axel 08/09/2024 1 MEDICARE [place]: [place] Alphonso Axel [id number] 7 Marglynn Axel 08/09/2024 2 [employer] [place] (MEDICARE SUPPLEMENT) Marglynn Axel [id number] Marglynn Axel Notes Date Note Type Note Provider Name and Address Organization Details Recorded Time 02/21/2024 text/html Pt is here today for lesion removal from left elbow, pt would like 2 spots on her left hand looked at also, Tino Platt MD [address] [place], [address], [facility] 03/23/2024 07:51:21 03/07/2024 text/html Pt had a skin le nuris removed from her left elbow on 02/21/24 and is here for a recheck and pathology results.Pt would like to talk about her energy, pt did drink a Redbull and she had all kinds of energy, pt would like to get your opinion Tino Platt MD [address] [place] [address], [phone], [facility] 03/07/2024 11:18:32 05/11/2024 text/html Hypertension F/UReported bypatient.Medications :taking medications as directed; no side effects from medication Lifestyle:regular exercise; limits sodium intake Associated Symptoms:no dizziness; no lightheadedness; no chest pain; no shortness of breath; no palpitations; no edema; no calf pain with exertion; no headache; occasional wheezing, Memory changes Tino Platt MD [address] [place] [address], [phone], [facility] 05/29/2024 07:08:16 07/10/2024 text/html Pt started havin g groin pain last week spouse states at night pt is in severe pain and has trouble getting in bed, pt is having more chronic joint pain her right knee is worse, pt is having more back and elbow pain. Pt did see Dr Parada and got a a steroid injection it helped for a couple days. Pt was told if insurance approved she could get a gel injection in it. Tino Platt MD [address] [place] [address], [phone], [facility] 07/10/2024 15:32:04 08/09/2024 text/html Musculoskeletal PainReported bypatient.Location:tejal mbar spine; right knee Severity:worsening Duration:present for 6-12 months Timing:constant Associated Symptoms:no fever; no weak limbs; no numbness of the legs/feet ADLs Affected:walking; climbing stairs Tino Platt MD [address] [place] [address], [phone], [facility] 08/09/2024 18:30:45 OBGyn Episode No OBEpisode recorded.
[2024-09-12 07:30] VITALS: BP 0/0; PULSE 0; RESP 0; TEMP -17.7; TEMP 0; O2SAT 0
== END 2024-09-12 07:07 | disposition expired | DRG 951 ==
PROVIDERS: Admitting Provider Student in an Organized Health Care Education/Training Program; PCP Family Medicine; Visit Provider Student in an Organized Health Care Education/Training Program
DX: Z51.5 Encounter for palliative care (principal); J80 Acute respiratory distress syndrome; G93.41 Metabolic encephalopathy; R78.81 Bacteremia; N17.9 Acute kidney failure, unspecified; I42.9 Cardiomyopathy, unspecified; G30.9 Alzheimer's disease, unspecified; B95.8 Unspecified staphylococcus as the cause of diseases classified elsewhere; R79.89 Other specified abnormal findings of blood chemistry; J44.9 Chronic obstructive pulmonary disease, unspecified; M17.11 Unilateral primary osteoarthritis, right knee; I50.9 Heart failure, unspecified; Z66 Do not resuscitate